=== PATIENT | female | born 1970 | race Two or more races ===

== ENCOUNTER 2025-01-06 00:48 | Emergency (ER) | payer BC ==
[~2025-01-06] VITALS: Ht 170.2 cm; Wt 99.9 kg
[~2025-01-06 00:48] MED LIST: IBUP-1456 PO
--- NOTE | 2025-01-06 01:37 | DVH ---
Procedure: XY KUB ABDOMEN SINGLE VIEW Exam Date: 01/06/2025 01:12 AM History: Constipation Comparison Study: None Technique: Single frontal view of the abdomen. Findings/ impression: Nonobstructive bowel-gas pattern. [id number] fecal retention in the colo n. No radiopaque foreign objects. No acute osseous abnormalities.
[2025-01-06] MEDS ORDERED: PHEN-839 OR (02:04)
[2025-01-06] MEDS ORDERED: DOCU-94 PO (02:04)
--- NOTE | 2025-01-06 02:06 | ED.PDOC ---
GI ASSESSMENT HPI Comments This patient is a pleasant but morbidly obese 54-year-old female who arrives to the ED today for evaluation of left foot upper quadrant abdominal pain for the past half day. Patient states she has a history of left upper quadrant abdominal pain has seen specialist before. Patient states that they have not found any definitive cause of her pain concerns. Patient denies any fever nausea or vomiting. Patient states some mild constipation. Vital signs were stable on arrival. Patient declined any narcotic pain medication while at the facility. Chief Complaint: Abdominal Pain Time Seen by MD: 00:55 Reviewed Notes: Nurses Notes Allergies: Coded Allergies: No Known Drug Allergy (Verified Allergy, Unknown, 12/01/22) Home Meds Active Scripts Ibuprofen (Ibuprofen) 800 Mg Tab, 1 TAB PO TID PRN, #30 TAB 0 Refills Prov:IMELDA AGUIRRE 02/09/22 Information Source: Patient Mode of Arrival: Ambulatory Timing: Hours Duration: Since onset Prehospital treatment: None Quality: Cramping Vomitus: None Severity: Moderate Recent: None Recent Hx of: Other (Patient has a history of left upper quadrant abdominal pain concerns.) Pain Location: LUQ Modifying Factors: Food Associated sign and symptoms: Abdominal Pain Past Medical History PAST MEDICAL HISTORY: Denies Past Medical History (Other): History of abdominal pain concerns Surgical History: Denies all surgeries SERVICE CLERK History: No Pertinent SERVICE CLERK History Family History Family History: Reviewed,noncontributory to illness, No family hx of Cancer, No family hx of DM, No family hx of Heart devante, No family hx of HTN, No family hx ofKidney devante, No family hx of Liver devante, No family hx of Lung devante, No family hx of Stroke Social History Smoker: Non-Smoker Alcohol: Denies ETOH Use Drugs: Denies Drug Use Lives In: Home Constitutional: denies: chills, diaphoresis, fatigue, fever, malaise, sweats, weakness, others EENTM: denies: blurred vision, double vision, ear bleeding, ear discharge, ear drainage, ear pain, ear ringing, eye pain, eye redness, hearing loss, mouth pain, mouth swelling, nasal discharge, nose bleeding, nose congestion, nose p ain, photophobia, tearing, throat pain, throat swelling, voice changes, others Respiratory: denies: cough, hemoptysis, orthopnea, SOB at rest, shortness of breath, SOB with excertion, stridor, wheezing, others Cardiovascular: denies: chest pain, dizzy spells, diaphoresis, Dyspnea on exertion, edema, irregular heart beat, left arm pain, lightheadedness, palpitations, PND, syncope, others Gastrointestinal: reports: abdominal pain; denies: abdomen distended, blood streaked bowels, constipated, diarrhea, dysphagia, difficulty swallowing, hematemesis, melena, nausea, poor appetite, poor fluid intake, rectal bleeding, rectal pain, vomiting, others Genitourinary: denies: abnormal vagina bleeding, burning, dyspareunia, dysuria, flank pain, frequency, hematuria, incontinence, pain, , vagina discharge, urgency, others Neurological: denies: dizziness, fainting, headache, left sided numbness, left sided weakness, numbness, paresthesia, pre-existing deficit, right sided numbness, right sided weakness, seizure, speech problems, tingling, tremors, weakness, others Musculoskeletal: denies: back pain, gout, joint pain, joint swelling, muscle pain, muscle stiffness, neck pain, others Integumetry: denies: bruises, change in color, change in hair/nails, dryness, laceration, lesions, lumps, rash, wounds, others Allergic/Immunocompromised: denies: Difficulty Healing, Frequent Infections, Hives, Itching, others Hematologic/Lymphatic: denies: anemia, blood clots, easy bleeding, easy bruising, swollen glands, others Endocrine: denies: excessive hunger, excessive sweating, excessive thirst, excessive urination, flushing, intolerance to cold, intolerance to heat, unexpl ained weight gain, unexplained weight loss, others Psychiatric: denies: anxiety, bipolar disorder, depression, hopeless, panic disorder, schizophrenia, sleepless, suicidal, others Physical Exam General Appearance: Mild Distress (Moderate distress due to left upper quadrant pain concerns.), Obese HEENT: Normal ENT Inspection, Pharynx Normal, TMs Normal Neck: Full Range of Motion, Non-Tender, Normal, Normal Inspection Respiratory: Chest Non-Tender, Lungs Clear, No Accessory Muscle Use, No Respiratory Distress, Normal Breath Sounds Cardiovascular: No Edema, No JVD, No Murmur, No Gallop, Normal Peripheral Pulses, Regular Rate/Rhythm Breast Exam: Deferred Gastrointestinal: Other (Diffuse left upper quadrant tenderness to palpation. No pulsatile masses. No signs of trauma.) Genitalia: Deferred Pelvic: Deferred Rectal: Deferred Extremities: No calf tenderness, Normal capillary refill, Normal inspection, Normal range of motion, Non-tender, No pedal edema Neurologic: Alert, fluid dynamicist II-XII nml as Tested, No Motor Deficits, Normal Affect, Normal Mood, No Sensory Deficits Cerebellar Function: Normal Reflexes: Normal Skin: Dry, Normal Color, Warm Lymphatic: No Adenopathy Was a procedure done? Was a procedure done?: No GI differential Dx Differential Diagnosis: Other (Chronic abdominal pain, constipation, UTI) X-Ray, Labs, Meds, VS Vital Signs Date Time Temp Pulse Resp B/P (MAP) Pulse Ox O2 Delivery O2 Flow Rate FiO2 01/06/25 01:05 98.1 74 16 119/70 (86) 97 98.1 X-Ray, Labs, Meds, VS Comment Urinalysis was pending at time of this note. KUB studies confirmed a moderate stool burden. Patient may be suffering from a constipation issue. Patient care will be transferred to Dr. Santana for review of urinalysis when returned. Once evaluated, he will respond accordingly. Time of 1ST Reevaluation: 02: Reevaluation 1ST: Improved Consultation: PCP, GI Patient Education/Counseling: Diagnosis, Treatment Family Education/Counseling: Diagnosis, Treatment Departure 1 Departure Time of Disposition: : Impression: Primary Impression: Chronic abdominal pain Additional Impression: Constipation Disposition: HOME / SELF CARE / HOMELESS Condition: Stable Additional Instructions: Advised patient utilize medication as needed for symptomatic relief in additionally, patient should continue follow up with primary care provider and GI for evaluation of chronic abdominal pain concerns. e-Prescriptions Docusate Sodium (Colace) 100 Mg Cap 1 CAP PO BIDP PRN, #20 CAP Prov: MELLY CALLE PAC 01/06/25 Belladonna Alkaloids-Phenobarb () Tab 1 TAB OR Q8HPRN PRN, #15 TAB Prov: MELLY CALLE PAC 01/06/25 Discharged With: Self Critical Care Note Critical Care Time?: No Stability Stability form required: No Heart Score Heart Score: Heart Score Response (Comments) Value History N/A 0 EKG N/A 0 Age N/A 0 Risk Factors N/A 0 Troponin N/A 0 Total 0 MELLY CALLE PAC January 06, 2025 02:06
[2025-01-06 02:15] VITALS: PULSE 63; RESP 18; O2SAT 98
[2025-01-06 02:18] LABS: Urine Bacteria FEW /hpf (None Seen); Urine Blood Negative /uL (Negative); Urine Clarity Clear (Clear); Urine Color Colorless (Yellow); Urine Protein, UAD Negative (Negative); Urine Specific Gravity 1.005 (1.001-1.035); Urine Squamous Epithelial Cell FEW /hpf (<5); Urine Urobilinogen Normal (Negative); Urine WBC 3 /HPF (0-5)
[2025-01-06] MEDS: DONNATAL 5ml ORAL Elix (BELLADONNA ALK-PHENOBARB) PO ONE (02:22)
[2025-01-06 04:23] VITALS: BP 121/61; PULSE 70; RESP 16; TEMP 98.2; O2SAT 98
[2025-01-06] MEDS ORDERED: CIPR-173 PO (12:56)
[2025-01-06] MEDS ORDERED: IBUP-1456 PO (12:56)
== END 2025-01-06 04:59 | disposition home or self-care (01) ==
LOC: ER 00:48
DX: K59.00 Constipation, unspecified (principal); G89.29 Other chronic pain; R10.12 Left upper quadrant pain; E66.01 Morbid (severe) obesity due to excess calories
CPT/HCPCS: 74018; 81001

== ENCOUNTER 2025-01-06 11:42 | Emergency (ER) | payer BC ==
[~2025-01-06] VITALS: Ht 170.2 cm; Wt 98.9 kg
[~2025-01-06 11:42] MED LIST changes: +DOCU-94 PO; +PHEN-839 OR
[2025-01-06 11:57] VITALS: BP 143/66; RESP 16; TEMP 98.8; O2SAT 95
--- NOTE | 2025-01-06 12:09 | ED.PDOC ---
General HPI Comments A 54 YEAR OLD FEMALE PRESENTS TO THE ED WITH COMPLAINT OF LEFT FLANK PAIN THAT RADIATES TO LUQ OF ABDOMEN. PATIENT STATES SHE HAS BEEN EXPERIENCING LEFT FLANK PAIN THAT RADIATES TO HER LEFT UPPER QUADRANT OF HER ABDOMEN FOR THE PAST 3 DAYS. PATIENT WAS HERE IN THIS ED FOR THE SAME COMPLAINT EARLIER TODAY WHERE A URINE TEST AND X RAY OF HER ABDOMEN WAS DONE WHICH REVEALED A MODERATE AMOUNT OF STOOL, BUT NO OTHER FINDINGS. PATIENT DENIES FEVER, CHILLS, SHORTNESS OF BREATH, CHEST PAIN, NAUSEA, VOMITING, HEADACHE, OR OTHER COMPLAINTS. NO OTHER SYMPTOMS OR MODIFYING FACTORS AT THIS TIME. PATIENT IS ALERT, ORIENTED X 4, AND HAS STEADY GAIT. Chief Complaint: Rib Pain Time Seen by MD: 11:45 Primary Care Provider: UNKNOWN Reviewed notes: Nurses Notes, Medications, Allergies Allergies: Coded Allergies: No Known Drug Allergy (Verified Allergy, Unknown, 12/01/22) Home Meds Active Scripts Ciprofloxacin Hcl (Cipro) 500 Mg Tab, 1 TAB PO BID, #14 TAB Prov:SHALONDA RIVAS 01/06/25 Ibuprofen (Ibuprofen) 800 Mg Tab, 1 TAB PO TID, #30 TAB Prov:SHALONDA RIVAS 01/06/25 Docusate Sodium (Colace) 100 Mg Cap, 1 CAP PO BIDP PRN, #20 CAP Prov:MELLY CALLE PAC 01/06/25 Belladonna Alkaloids-Phenobarb () Tab, 1 TAB OR Q8HPRN PRN, #15 TAB Prov:MELLY CALLE PAC 01/06/25 Ibuprofen (Ibuprofen) 800 Mg Tab, 1 TAB PO TID PRN, #30 TAB 0 Refills Prov:IMELDA AGUIRRE 02/09/22 Information Source: Patient Mode of Arrival: Ambulatory Severity: Moderate Inability to void: None Timing: Days Duration: Since onset, Days Prehospital treatment: None Onset: Spontaneous Symptoms: None History of: None Location: (L)Flank Modifying factors: None associated signs and symptoms: Flank Pain Past Medical History PAST MEDICAL HISTORY: Angina Surgical History: Denies all surgeries INSULATION CUPOLA OPERATOR History: No Pertinent INSULATION CUPOLA OPERATOR History Family History Family History: Reviewed,noncontributory to illness, No family hx of Cancer, No family hx of DM, No family hx of Heart devante, No family hx of HTN, No family hx ofKidney devante, No family hx of Liver devante, No family hx of Lung devante, No family hx of Stroke Social History Smoker: Non-Smoker Alcohol: Denies ETOH Use Drugs: Denies Drug Use Lives In: Home Constitutional: denies: chills, diaphoresis, fatigue, fever, malaise, sweats, weakness, others EENTM: denies: blurred vision, double vision, ear bleeding, ear discharge, ear drainage, ear pain, ear ringing, eye pain, eye redness, hearing loss, mouth pain, mouth swelling, nasal discharge, nose bleeding, nose congestion, nose pain, photophobia, tearing, throat pain, throat swelling, voice changes, others Respiratory: denies: cough, hemoptysis, orthopnea, SOB at rest, shortness of breath, SOB with excertion, stridor, wheezing, others Cardiovascular: denies: chest pain, dizzy spells, diaphoresis, Dyspnea on exertion, edema, irregular heart beat, left arm pain, lightheadedness, palpitations, PND, syncope, others Gastrointestinal: reports: abdominal pain; denies: abdomen distended, blood streaked bowels, constipated, diarrhea, dysphagia, difficulty swallowing, hematemesis, melena, nausea, poor appetite, poor fluid intake, rectal bleeding, rectal pain, vomiting, others Genitourinary: reports: flank pain; denies: abnormal vagina bleeding, burning, dyspareunia, dysuria, frequency, hematuria, incontinence, pain, , vagina discharge, urgency, others Neurological: denies: dizziness, fainting, headache, left sided numbness, left sided weakness, numbness, paresthesia, pre-existing deficit, right sided numbness, right sided weakness, seizure, speech problems, tingling, tremors, weakness, others Musculoskeletal: denies: back pain, gout, joint pain, joint swelling, muscle pain, muscle stiffness, neck pain, others Integumetry: denies: bruises, change in color, change in hair/nails, dryness, laceration, lesions, lumps, rash, wounds, others Allergic/Immunocompromised: denies: Difficulty Healing, Frequent Infections, Hives, Itching, others Hematologic/Lymphatic: denies: anemia, blood clots, easy bleeding, easy bruising, swollen glands, others Endocrine: denies: excessive hunger, excessive sweating, excessive thirst, excessive urination, flushing, intolerance to cold, intolerance to heat, unexpla ined weight gain, unexplained weight loss, others Psychiatric: denies: anxiety, bipolar disorder, depression, hopeless, panic disorder, schizophrenia, sleepless, suicidal, others All Other Systems: Reviewed and Negative Physical Exam General Appearance: No Apparent Distress, Normal HEENT: Normal ENT Inspection, PERRL/EOMI, Pharynx Normal, TMs Normal Neck: Full Range of Motion, Non-Tender, Normal, Normal Inspection Respiratory: Chest Non-Tender, Lungs Clear, No Accessory Muscle Use, No Respir atory Distress, Normal Breath Sounds Cardiovascular: No Edema, No JVD, No Murmur, No Gallop, Normal Peripheral Pulses, Regular Rate/Rhythm Breast Exam: Deferred Gastrointestinal: LUQ, No Organomegaly, No Pulsatile Mass, Normal Bowel Sounds, Soft, Tenderness (LEFT FLAN TO LEFT UPPER ABD, NO GUARDING AND REBOUND TENDER NESS, NO CVA TENDERNESS. ) Genitalia: Deferred Pelvic: Deferred Rectal: Deferred Extremities: No calf tenderness, Normal capillary refill, Normal inspection, Normal range of motion, Non-tender, No pedal edema Musculoskeletal : Apperance: Normal Neurologic: Alert, internal combustion engineer II-XII nml as Tested, No Motor Deficits, Normal Affect, Normal Mood, No Sensory Deficits Cerebellar Function: Normal Reflexes: Normal Skin: Dry, Normal Color, Warm Peripheral Pulses: 2+ carotid (R), 2+ carotid (L) Lymphatic: No Adenopathy Was a procedure done? Was a procedure done?: No EKG EKG : Pulse Rate (adult): 64 [place]: Normal Cardiac Rhythm: NSR Block: None Hypertrophy: None ST: Normal Differential Diagnosis Kidney stone (Female): Musculoskeletal pain, Pyelonephritis, Renal failure, Strain, Urolithiasis Kidney stone (Male): N/A Penile/Scrotal: N/A Urinary Problem (Male): N/A Urinary Problem (Female): N/A X-Ray, Labs, Meds, VS Vital Signs Date Time Temp Pulse Resp B/P (MAP) Pulse Ox O2 Delivery O2 Flow Rate FiO2 01/06/25 12:21 64 01/06/25 12:19 64 01/06/25 11:57 98.8 79 16 143/66 (91) 95 98.8 01/06/25 11:57 79 16 95 Room Air 01/06/25 11:53 98.8 79 16 143/66 (91) 95 98.8 Lab Test 01/06/25 12:07 01/06/25 01:10 Range/Units White Blood Count 8.6 4.4-10.8 10^3/uL Red Blood Count 4.78 4.0-5.20 10^6/uL Hemoglobin 14.6 12.2-16.2 g/dL Hematocrit 42.9 36.0-46.0 % Mean Corpuscular Volume 89.7 80.0-100.0 fL Mean Corpuscular Hemoglobin 30.5 28.0-32.0 pg Mean Corpuscular Hemoglobin Concent 34.0 32.0-36.0 g/dL Red Cell Distribution Width 13.9 11.8-14.3 % Platelet Count 317 140-450 10^3/uL Mean Platelet Volume 7.3 6.9-10.8 fL Neutrophils (%) (Auto) 70.6 37.0-80.0 % Lymphocytes (%) (Auto) 19.6 10.0-50.0 % Monocytes (%) (Auto) 8.6 0.0-12.0 % Eosinophils (%) (Auto) 0.7 0.0-7.0 % Basophils (%) (Auto) 0.5 0.0-2.0 % Neutrophils # (Auto) 6.1 1.6-8.6 10 ^3/uL Lymphocytes # (Auto) 1.7 0.4-5.4 10 ^3/uL Monocytes # (Auto) 0.7 0-1.3 10 ^3/uL Eosinophils # (Auto) 0.1 0-0.8 10 ^3/uL Basophils # (Auto) 0 0-0.2 10 ^3/uL Nucleated Red Blood Cells 0.0 % Sodium Level 141 136-145 mmol/L Potassium Level 3.8 3.5-5.1 mmol/L Chloride Level 105 98-107 mmol/L Carbon Dioxide Level 24 20-31 mmol/L Anion Gap 12 5-15 Blood Urea Nitrogen 11 9-23 mg/dL Creatinine 0.72 0.550-1.02 mg/dL Glomerular Filtration Rate Calc 100 >90 mL/min BUN/Creatinine Ratio 15.3 10.0-20.0 Serum Glucose 119 H 74-106 mg/dL Calcium Level 9.4 8.7-10.4 mg/dL Total Bilirubin 0.6 0.2-1.0 mg/dL Aspartate Amino Transferase (AST) 17 13-40 U/L Alanine Aminotransferase (ALT) 28 7-40 U/L Alkaline Phosphatase 96 46-116 U/L Troponin I High Sensitivity < 3 L </=34 ng/L Total Protein 7.5 5.7-8.2 g/dL Albumin 4.7 3.2-4.8 g/dL Lipase 39 12-53 U/L Urine Color Light-yellow Yellow Urine Clarity Clear Clear Urine pH 6.0 5.0-9.0 Urine Specific [place] 1.005 1.001-1.035 Urine Protein Negative Negative Urine Ketones Negative Negative Urine Blood Negative Negative /uL Urine Nitrite Negative Negative Urine Bilirubin Negative Negative Urine Urobilinogen Normal Negative mg/dL Urine Leukocyte Esterase Negative Negative /uL Urine RBC 1 0 - 4 /hpf Urine Microscopic WBC 3 0-5 /HPF Urine Squamous Epithelial Cells Few <5 /hpf Urine Bacteria Few H None Seen /hpf Urine Glucose Normal Normal mg/dL Current Medications Medications (Trade) Dose Ordered Sig/Jose Route Start Time Stop Time Status Last Admin Ketorolac Tromethamine (Toradol Injection) 60 mg ONCE ONCE IM 01/06/25 13:00 01/06/25 13:01 DC 01/06/25 12:58 X-Ray, Labs, Meds, VS Comment EXTERNAL MEDICAL RECORDS REVIEWED: [NONE] INDEPENDENT HISTORIANS: [NONE] SOCIAL DETERMINANTS OF HEALTH: [NONE] LABS ORDERED: CBC, CMP, TROPONIN, UA REVIEWED AND INTERPRETED RESULTS: NORMAL IMAGING ORDERED: CT ABD/PEL TREATMENTS ORDERED: TORADOL 60 MG IM PROCEDURES PERFORMED: NONE CRITICAL CARE TIME: NONE I HAVE DISCUSSED THE PATIENT WITH THE ATTENDING PHYSICIAN DR. ESCOBEDO AND HE AGREES WITH THE PATIENT'S PLAN OF CARE AND DISPOSITION. PATIENT WAS OFFERED ADMISSION FOR FURTHER TREATMENT, BUT THE PATIENT DECLINED AT THIS TIME AND STATED THAT SHE WOULD PREFER OUTPATIENT TREATMENT INSTEAD. BASED ON HISTORY OF PRESENT ILLNESS, AND PHYSICAL EXAM, PATIENT WILL BE DISCHARGED HOME. DISCUSSED PLAN FOR DISCHARGE HOME WITH RX [CIPRO 500MG AND IBUPROFEN 800 MG]. MEDICATION WARNINGS GIVEN. SHARED DECISION MAKING: PATIENT INSTRUCTED TO FOLLOW UP WITH PRIMARY CARE PROVIDER IN 1-2 DAYS FOR RE-EVALUATION OF SYMPTOMS. PATIENT VERBALIZES UNDERSTANDING TO RETURN TO ED FOR NEW OR WORSENING SYMPTOMS OR IF FOLLOW UP WITH PCP CANNOT BE OBTAINED. PATIENT FEELS COMFORTABLE GOING HOME AT THIS TIME. ALL QUESTIONS ADDRESSED AT TIME OF DISCHARGE. Images Reviewed?: Images reviewed and evaluated by me Time of 1ST Reevaluation: 13:20 Reevaluation 1ST: Improved Patient Education/Counseling: Diagnosis, Treatment, Need For Follow Up Family Education/Counseling: Diagnosis, Treatment, Need For Follow Up Medical Screening: No EMC Exist At This Time Departure 1 Departure Time of Disposition: 13:20 Impression: Primary Impression: Acute left flank pain Additional Impression: Colitis Disposition: 01 HOME / SELF CARE / HOMELESS Condition: Stable Additional Instructions: FOLLOW-UP WITH PCP IN 1 TO 2 DAYS. TAKE MEDICATIONS PRESCRIBED. RETURN TO ED FOR ANY NEW OR WORSENING SYMPTOMS. e-Prescriptions Ciprofloxacin Hcl (Cipro) 500 Mg Tab 1 TAB PO BID, #14 TAB Prov: SHALONDA RIVAS 01/06/25 Ibuprofen (Ibuprofen) 800 Mg Tab 1 TAB PO TID, #30 TAB Prov: SHALONDA RIVAS 01/06/25 Discharged With: Self Critical Care Note Critical Care Time?: No Stability Stability form required: No I personally scribed for SHALONDA RIVAS ([email or web address]) on 01/06/25 at 12:09. Electronically submitted by Juan Mckeon ([employer]). I personally scribed for SHALONDA RIVAS ([email or web address]) on 01/06/25 at 12:21. Electronically submitted by Juan Mckeon ([employer]). I personally scribed for SHALONDA RIVAS ([email or web address]) on 01/06/25 at 12:53. Electronically submitted by Juan Mckeon ([email or web address]). SHALONDA RIVAS January 06, 2025 12:09
[2025-01-06 12:10] LABS: Urine Bacteria FEW /hpf (None Seen); Urine Blood Negative /uL (Negative); Urine Clarity Clear (Clear); Urine Color Light-Yellow (Yellow); Urine Protein, UAD Negative (Negative); Urine Specific Gravity 1.005 (1.001-1.035); Urine Squamous Epithelial Cell FEW /hpf (<5); Urine Urobilinogen Normal (Negative); Urine WBC 3 /HPF (0-5)
[2025-01-06 12:18] LABS: Basophils # (auto) 0 10 ^3/uL (0-0.2); Basophils % (auto) 0.5 % (0.0-2.0); Eosinophils # (auto) 0.1 10 ^3/uL (0-0.8); Eosinophils % (auto) 0.7 % (0.0-7.0); Hematocrit 42.9 % (36.0-46.0); Hemoglobin 14.6 g/dL (12.2-16.2); Lymphocytes # (auto) 1.7 10 ^3/uL (0.4-5.4); Lymphocytes % (auto) 19.6 % (10.0-50.0); Mean Corpuscular Hemoglobin 30.5 pg (28.0-32.0); Mean Corpuscular Volume 89.7 fL (80.0-100.0); Monocytes # (auto) 0.7 10 ^3/uL (0-1.3); Monocytes % (auto) 8.6 % (0.0-12.0); Neutrophils # (auto) 6.1 10 ^3/uL (1.6-8.6); Neutrophils % (auto) 70.6 % (37.0-80.0); Platelet Count (auto) 317 10^3/uL (140-450); Red Blood Cells 4.78 10^6/uL (4.0-5.20); Red Cell Distribution Width 13.9 % (11.8-14.3); White Blood Cell 8.6 10^3/uL (4.4-10.8)
[2025-01-06 12:21] VITALS: PULSE 64
[2025-01-06 12:34] LABS: Alanine Aminotransferase 28 U/L (7-40); Albumin 4.7 g/dL (3.2-4.8); Alkaline Phosphatase 96 U/L (46-116); Anion Gap 12 (5-15); Aspartate Aminotransferase 17 U/L (13-40); BUN/Creatinine Ratio 15.3 (10.0-20.0); Blood Urea Nitrogen 11 mg/dL (9-23); Calcium 9.4 mg/dL (8.7-10.4); Carbon Dioxide 24 mmol/L (20-31); Chloride 105 mmol/L (98-107); Lipase 39 U/L (12-53); Potassium 3.8 mmol/L (3.5-5.1); Sodium 141 mmol/L (136-145); Total Protein 7.5 g/dL (5.7-8.2)
[2025-01-06 12:35] LABS: Bilirubin, Total 0.6 mg/dL (0.2-1.0)
[2025-01-06 12:39] LABS: Glucose 119 mg/dL (74-106)
--- NOTE | 2025-01-06 12:40 | DVH ---
Exam: CT CT AB PEL WO CON-NO ORAL OR IV History: LEFT FLANK PAIN Comparison Study: None Technique: Multidetector spiral CT of the abdomen was performed from lung bases to pubic symphysis. Imaging was performed without IV contrast. Axial, coronal and sagittal multiplanar reformats were ob tained from the axial data set by the technologist. Radiation Dose : 1. Abdomen/Pelvis: CTDIvol 25.24 mGy, DLP 1363.13 mGy*cm. Findings: Evaluation of solid organs is limited due to lack of intravenous contrast use. Lung Bases: No acute or significant lung base finding. Normal heart size. No pleural or pericardial effusion. Liver: The liver is normal in size. No focal lesions. Gallbladder and Biliary Tree: Unremarkable Spleen: Unremarkable Pancreas: The pancreas is grossly normal in appearance. Adrenal Glands: Unremarkable Kidneys: Kidneys are grossly normal without calculi or hydronephrosis. Bladder: Grossly unremarkable for degree of distention. Bowel: The stomach is grossly normal in appearance. Concentric wall thickening of the distal colon ma y reflect underdistention versus mild colitis. The appendix is not visualized; however, no secondary findings of acute appendicitis identified. Ascites: Absent Lymphadenopathy: No mesenteric, retroperitoneal or periportal lymphadenopathy. Abdominal Wall and Mesentery: Unremarkable. Vasculature: The visualized abdominal aorta is normal in size and caliber. Evaluation of abdominal a nd pelvic vessels is limited due to lack of intravenous contrast. Pelvic Organs: Unremarkable Musculoskeletal: No aggressive focal bony lesions, acute fractures or dislocation. IMPRESSION: 1. Concentric wall thickening of the distal colon may reflect underdistention versus mild colitis. Radiation optimization: All CT scans at this facility use at least one of these dose optimization rani hniques: automated exposure control mA and/or kV adjustment per patient size (includes targeted exam s where dose is matched to clinical indication) or iterative reconstruction.
[2025-01-06] MEDS ORDERED: CIPR-173 PO (12:56)
[2025-01-06] MEDS ORDERED: IBUP-1456 PO (12:56)
[2025-01-06] MEDS: KETOROLAC TROMETH 60MG/2ML VIAL IM ONE (12:58)
--- NOTE | 2025-01-08 12:53 | ECG ---
[facility] Test Date: 2025-01-06 Test Time: 12:19:22 Pat Name: DELROY MARTINO Department: ER Room: Gender: F [employer]inder Gear: NATE : 1970 Requested By: SHALONDA RIVAS Order Number: [id number] Reading MD: Measurements Intervals [place] Rate: 64 P: 31 NV: 130 QRS: 53 QRSD: 101 T: 38 QT: 375 QTc: 387 Interpretive Statements Sinus rhythm Low voltage, precordial leads Baseline wander in lead(s) I,II,aVR Please click the below link to view image of tracing.
== END 2025-01-06 13:13 | disposition home or self-care (01) ==
LOC: ER 11:42
DX: K52.9 Noninfective gastroenteritis and colitis, unspecified (principal); Z79.1 Long term (current) use of non-steroidal anti-inflammatories (NSAID)
CPT/HCPCS: 36415; 74176; 80053; 81001; 83690; 84484; 85025; 93005; 96372; 99285; J1885

== ENCOUNTER 2025-01-11 16:09 | Inpatient (IN) | payer BC ==
[~2025-01-11] VITALS: Ht 177.8 cm; Wt 102.0 kg
[~2025-01-11 16:09] MED LIST changes: +CIPR-173 PO
--- NOTE | 2025-01-11 16:37 | ED.PDOC ---
History of Present Illness HPI Comments 54-year-old female with PMHx Angina, COPD presents with a chief complaint of abdominal pain and nausea. Patient states that her pain is localized to her LLQ, nonradiating, describes as sharp, and rates her pain a 8/10. Patient is reporting LLQ tenderness. Patient also mentions that she has been having freque nt bowel movements and that her stool has been loose. Time Seen by MD: 16:22 Primary Care Provider: UNKNOWN Reviewed Notes: Medications, Allergies Allergies: Coded Allergies: No Known Drug Allergy (Verified Allergy, Unknown, 12/01/22) Home Meds Active Scripts Ciprofloxacin Hcl (Cipro) 500 Mg Tab, 1 TAB PO BID, #14 TAB Prov:SHALONDA RIVAS 01/06/25 Ibuprofen (Ibuprofen) 800 Mg Tab, 1 TAB PO TID, #30 TAB Prov:SHALONDA RIVAS 01/06/25 Docusate Sodium (Colace) 100 Mg Cap, 1 CAP PO BIDP PRN, #20 CAP Prov:MELLY CALLE PAC 01/06/25 Belladonna Alkaloids-Phenobarb () Tab, 1 TAB OR Q8HPRN PRN, #15 TAB Prov:MELLY CALLE PAC 01/06/25 Ibuprofen (Ibuprofen) 800 Mg Tab, 1 TAB PO TID PRN, #30 TAB 0 Refills Prov:IMELDA AGUIRRE 02/09/22 Information Source: Patient Mode of Arrival: Ambulatory Severity: Moderate Timing: Days Duration: Since onset Prehospital treatment: None Past Medical History PAST MEDICAL HISTORY: Angina, COPD Surgical History: Denies all surgeries [employer] MECH[employer]IC History: No Pertinent [employer]OM[employer]BILE [employer]ATOR MECH[employer]IC History Family History Family History: Reviewed,noncontributory to illness, No family hx of Cancer, No family hx of DM, No family hx of Heart devante, No family hx of HTN, No family hx ofKidney devante, No family hx of Liver devante, No family hx of Lung devante, No family hx of Stroke Social History Smoker: Non-Smoker Alcohol: Denies ETOH Use Drugs: Denies Drug Use Lives In: Home Constitutional: denies: chills, diaphoresis, fatigue, fever, malaise, sweats, weakness, others EENTM: denies: blurred vision, double vision, ear bleeding, ear discharge, ear drainage, ear pain, ear ringing, eye pain, eye redness, hearing loss, mouth pain, mouth swelling, nasal discharge, nose bleeding, nose congestion, nose pain, photophobia, tearing, throat pain, throat swelling, voice changes, others Respiratory: denies: cough, hemoptysis, orthopnea, SOB at rest, shortness of breath, SOB with excertion, stridor, wheezing, others Cardiovascular: denies: chest pain, dizzy spells, diaphoresis, Dyspnea on exertion, edema, irregular heart beat, left arm pain, lightheadedness, palpitations, PND, syncope, others Gastrointestinal: reports: abdominal pain, nausea; denies: abdomen distended, blood streaked bowels, constipated, diarrhea, dysphagia, difficulty swallowing, hematemesis, melena, poor appetite, poor fluid intake, rectal bleeding, rectal pain, vomiting, others Genitourinary: denies: abnormal vagina bleeding, burning, dyspareunia, dysuria, flank pain, frequency, hematuria, incontinence, pain, , vagina discharge, urgency, others Neurological: denies: dizziness, fainting, headache, left sided numbness, left sided weakness, numbness, paresthesia, pre-existing deficit, right sided numbness, right sided weakness, seizure, speech problems, tingling, tremors, weakness, others Musculoskeletal: denies: back pain, gout, joint pain, joint swelling, muscle pain, muscle stiffness, neck pain, others Integumetry: denies: bruises, change in color, change in hair/nails, dryness, laceration, lesions, lumps, rash, wounds, others Allergic/Immunocompromised: denies: Difficulty Healing, Frequent Infections, Hives, Itching, others Hematologic/Lymphatic: denies: anemia, blood clots, easy bleeding, easy bruising, swollen glands, others Endocrine: denies: excessive hunger, excessive sweating, excessive thirst, excessive urination, flushing, intolerance to cold, intolerance to heat, unexplained weight gain, unexplained weight loss, others Psychiatric: denies: anxiety, bipolar disorder, depression, hopeless, panic disorder, schizophrenia, sleepless, suicidal, others All Other Systems: Reviewed and Negative Physical Exam General Appearance: No Apparent Distress, Normal HEENT: Normal ENT Inspection, Pharynx Normal, TMs Normal Neck: Full Range of Motion, Non-Tender, Normal, Normal Inspection Respiratory: Chest Non-Tender, Lungs Clear, No Accessory Muscle Use, No Resp iratory Distress, Normal Breath Sounds Cardiovascular: No Edema, No JVD, No Murmur, No Gallop, Normal Peripheral Pulses, Regular Rate/Rhythm Breast Exam: Deferred Gastrointestinal: No Organomegaly, Non Tender, No Pulsatile Mass, Normal Bowel Sounds, Soft Genitalia: Deferred Pelvic: Deferred Rectal: Deferred Extremities: No calf tenderness, Normal capillary refill, Normal inspection, Normal range of motion, Non-tender, No pedal edema Musculoskeletal : Apperance: Normal 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 Was a procedure done?: No Time of 1ST Reevaluation: 16:52 Reevaluation 1ST: Unchanged Patient Education/Counseling: Diagnosis, Treatment, Prognosis Critical Care Note Critical Care Time?: No Stability Stability form required: No Heart Score Heart Score: Heart Score Response (Comments) Value History N/A 0 EKG N/A 0 Age N/A 0 Risk Factors N/A 0 Troponin N/A 0 Total 0 I personally scribed for HERBER KRUSE MD ([email or web address]) on 01/11/25 at 16:37. Electronically submitted by Lobo Burris ([email or web address]). HERBER KRUSE MD January 11, 2025 16:37
[2025-01-11] MEDS: ONDANSETRON HCL 4 MG/2 ML VIAL IV ONE (17:12)
[2025-01-11] MEDS: MORPHINE SULFATE 4 MG/ML SYR/VIAL IV ONE (17:12)
[2025-01-11] MEDS: SODIUM CHLORIDE 0.9% 1,000 ML IV ONE (17:12)
[2025-01-11 17:14] LABS: Basophils # (auto) 0 10 ^3/uL (0-0.2); Basophils % (auto) 0.2 % (0.0-2.0); Eosinophils # (auto) 0.2 10 ^3/uL (0-0.8); Eosinophils % (auto) 2.4 % (0.0-7.0); Hematocrit 42.5 % (36.0-46.0); Hemoglobin 14.3 g/dL (12.2-16.2); Lymphocytes # (auto) 1.9 10 ^3/uL (0.4-5.4); Lymphocytes % (auto) 24.9 % (10.0-50.0); Mean Corpuscular Hemoglobin 30.3 pg (28.0-32.0); Mean Corpuscular Hgb Conc. 33.6 g/dL (32.0-36.0); Mean Corpuscular Volume 90.2 fL (80.0-100.0); Monocytes # (auto) 0.6 10 ^3/uL (0-1.3); Monocytes % (auto) 8.2 % (0.0-12.0); Neutrophils % (auto) 64.3 % (37.0-80.0); Nucleated Red Blood Cells % 0.1 %; Platelet Count (auto) 312 10^3/uL (140-450); Red Blood Cells 4.72 10^6/uL (4.0-5.20); White Blood Cell 7.7 10^3/uL (4.4-10.8)
[2025-01-11 17:22] VITALS: PULSE 60; RESP 14; O2SAT 94
[2025-01-11 17:27] LABS: Alanine Aminotransferase 27 U/L (7-40); Albumin 4.7 g/dL (3.2-4.8); Alkaline Phosphatase 100 U/L (46-116); Anion Gap 11 (5-15); Aspartate Aminotransferase 23 U/L (13-40); BUN/Creatinine Ratio 14.9 (10.0-20.0); Blood Urea Nitrogen 17 mg/dL (9-23); Calcium 10.2 mg/dL (8.7-10.4); Carbon Dioxide 25 mmol/L (20-31); Chloride 104 mmol/L (98-107); Glucose 99 mg/dL (74-106); Potassium 3.8 mmol/L (3.5-5.1); Sodium 140 mmol/L (136-145); Total Protein 7.5 g/dL (5.7-8.2)
[2025-01-11 17:28] LABS: Bilirubin, Total 0.3 mg/dL (0.2-1.0)
[2025-01-11 18:15] LABS: Urine Bacteria FEW /hpf (None Seen); Urine Blood Negative /uL (Negative); Urine Clarity Clear (Clear); Urine Color Colorless (Yellow); Urine Protein, UAD Negative (Negative); Urine Specific Gravity 1.004 (1.001-1.035); Urine Squamous Epithelial Cell FEW /hpf (<5); Urine Urobilinogen Normal (Negative); Urine WBC 1 /HPF (0-5); Urine pH 5.5 (5.0-9.0)
[2025-01-11] MEDS: IOHEXOL 300 MG/ML 100ML BOTTLE IJ ONE (18:33)
[2025-01-11 19:20] VITALS: PULSE 65; RESP 10; O2SAT 94
--- NOTE | 2025-01-11 19:50 | DVH ---
EXAM: CT CT AB PEL WITH IV CON ONLY HISTORY: worsening abdominal pain TECHNIQUE: Volumetric multidetector CT images of the abdomen and pelvis were obtained after the admin istration of intravenous contrast. All CT scans at this facility use dose modulation, iterative recon struction, and/or weight based dosing when appropriate to reduce radiation dose to as low as reasonab ly achievable. COMPARISON: None FINDINGS: [LOWER CHEST]: The partially visualized lung bases are clear without a pleural effusion. [LIVER]: Benign-appearing fluid attenuating lesion in the left hepatic lobe. No further specific imag ing follow-up required, presuming no known or unknown increased risk of cancer above societal norms. [GALLBLADDER AND BILIARY TREE]: No cholelithiasis. [SPLEEN]: Unremarkable. [PANCREAS]: Unremarkable. [ADRENAL GLANDS]: Unremarkable [KIDNEYS]: No hydronephrosis. No nephroureterolithiasis. [BLADDER]: Unremarkable for the degree distention. [REPRODUCTIVE ORGANS]: Unremarkable. [BOWEL/MESENTERY]: Stomach is normal. No CT evidence of bowel obstruction. [ASCITES]: Absent [LYMPHADENOPATHY]: No pathologically enlarged lymph nodes by CT size criteria [VASCULATURE]: No aneurysmal dilatation. [ABDOMINAL WALL]: Unremarkable. [MUSCULOSKELETAL]: No acute fracture or aggressive focal osseous lesion. IMPRESSION: 1. No CT evidence of an acute abdominal/pelvic process.
[2025-01-11] MEDS: SOD CHL 0.45% 1,000 ML IV SCH (21:30)
[2025-01-11] MEDS ORDERED: DOCUSATE SOD 100 MG CAP PO PRN (21:30)
[2025-01-11] MEDS ORDERED: HYDROcodone-ACET 5/325MG TAB PO PRN (21:30)
[2025-01-11] MEDS ORDERED: MORPHINE SULFATE INJ 2 MG/ml SYRG IV PRN ×2 (21:30→23:00)
--- NOTE | 2025-01-11 22:50 | DVHHP2 ---
History of Present Illness Reason for Visit: Acute abdominal pain History of Present Illness The patient is a 54-year-old female with past medical history of angina and COPD who presented to [facility] ED with complaint of acute abdominal pain. Patient reports symptoms progressively get worse with localized left lower quadrant abdominal pain, nonradiating, describes as sharp, rating 8/10 numeric scale, associated nausea, getting worse that prompted this visit. Patient was seen and evaluated in the ED, laboratory data shows WBC 7.7, platelets 312, sodium 140, potassium 3.8, BUN 17, creatinine 1.14, glucose 99, blood pressure 122/35, heart rate 65, temperature 98.0 F, O2 saturation 94% on room air. Abdomen/pelvis CT showed no evidence of acute abdominal/pelvic process. On my assessment, patient denies chest pain, no headache, no dizziness, no shortness of breath, no pain or nausea at this moment, no vomiting, no fever, no chills. Patient was admitted for further evaluation and medical management. Past Medical History Angina, COPD Past Surgical History Colonoscopy, endoscopy Family History Reviewed, noncontributory to the management of this case. Past Social History The patient lives at home, denies smoking, alcohol or illicit drugs abuse. Review of Systems Constitutional: No: Fever, Chills, Sweats, Weakness, Malaise, Other Eyes: No: Pain, Vision change, Conjunctivae inflammation, Eyelid inflammation, Other, Redness ENT: No: Ear pain, Ear discharge, Nose pain, Nose discharge, Nose congestion, Mouth pain, Mouth swelling, Throat pain, Throat swelling, Other Respiratory: No: Cough, Dry, Shortness of breath, SOB with excertion, Wheezing, Hemoptysis, Pleuritic Pain, Sputum, Wheezing, Other Cardiovascular: No: Chest Pain, Palpitations, Orthopnea, Paroxysmal Noc. Dyspnea, Edema, Lt Headedness, Other Gastrointestinal: Nausea, Abdominal Pain; No: Vomiting, Diarrhea, Constipation, Melena, Hematochezia, Other Genitourinary: No Dysuria, No Frequency, No Incontinence, No Hematuria, No Retention, No Other Musculoskeletal: No: other, neck pain, shoulder pain, arm pain, back pain, hand pain, leg pain, foot pain Skin: No: Rash, Lesions, Jaundice, Bruising, Other Neurological: No: Weakness, Numbness, Incoordination, Change in speech, Confusion, Seizures, Other Allergies: Coded Allergies: No Known Drug Allergy (Verified Allergy, Unknown, 12/01/22) Medications Current Medications Medications Dose Ordered Sig/Jose Route Start Time Stop Time Status Last Admin Dose Admin Sodium Chloride 1,000 ml @ 75 mls/hr [id number] IV 01/11/25 21:30 Acetaminophen/ Hydrocodone Bitart 1 tab Q4HP PRN PO 01/11/25 21:30 Ondansetron HCl 4 mg Q4HP PRN IV 01/11/25 21:30 Docusate Sodium 100 mg BIDPRN PRN PO 01/11/25 21:30 Acetaminophen 650 mg Q6HP PRN PO 01/11/25 21:30 Morphine Sulfate 2 mg Q4HPRN PRN IV 01/11/25 21:30 Exam Vital Signs Vital Signs Date Time Temp Pulse Resp B/P (MAP) Pulse Ox O2 Delivery O2 Flow Rate FiO2 01/11/25 19:20 65 10 94 Room Air* 0 21 01/11/25 19:20 98.0 122/35 (64) 98.0 General Appearance: Alert, Oriented X3, Cooperative, No acute distress HEENT: Atraumatic, PERRLA, EOMI, Mucous membr. moist/pink Respiratory: Clear to auscultation, Normal air movement Cardiovascular: Regular rate, Normal S1, Normal S2, No murmurs Abdominal: Normal bowel sounds, Soft, No hepatospenomegaly, No masses, Other (R eports tenderness) Extremities: No clubbing, No cyanosis, No edema, Normal pulses, No tenderness/swelling Skin: No rashes, No breakdown, No significant lesion Neuro: Normal gait, Normal speech, Strength at 5/5 X4 ext, Normal tone, Sensation intact, Cranial nerves 3-12 NL, Reflexes 2+ Psych/Mental Status: Mental status NL, Mood NL Labs/Xrays Labs Test 01/11/25 17:17 01/11/25 16:53 Range/Units Urine Color Colorless Yellow Urine Clarity Clear Clear Urine pH 5.5 5.0-9.0 Urine Specific [place] 1.004 1.001-1.035 Urine Protein Negative Negative Urine Ketones Negative Negative Urine Blood Negative Negative /uL Urine Nitrite Negative Negative Urine Bilirubin Negative Negative Urine Urobilinogen Normal Negative mg/dL Urine Leukocyte Esterase Negative Negative /uL Urine RBC 1 0 - 4 /hpf Urine Microscopic WBC 1 0-5 /HPF Urine Squamous Epithelial Cells Few <5 /hpf Urine Bacteria Few H None Seen /hpf Urine Glucose Normal Normal mg/dL White Blood Count 7.7 4.4-10.8 10^3/uL Red Blood Count 4.72 4.0-5.20 10^6/uL Hemoglobin 14.3 12.2-16.2 g/dL Hematocrit 42.5 36.0-46.0 % Mean Corpuscular Volume 90.2 80.0-100.0 fL Mean Corpuscular Hemoglobin 30.3 28.0-32.0 pg Mean Corpuscular Hemoglobin Concent 33.6 32.0-36.0 g/dL Red Cell Distribution Width 14.0 11.8-14.3 % Platelet Count 312 140-450 10^3/uL Mean Platelet Volume 7.4 6.9-10.8 fL Neutrophils (%) (Auto) 64.3 37.0-80.0 % Lymphocytes (%) (Auto) 24.9 10.0-50.0 % Monocytes (%) (Auto) 8.2 0.0-12.0 % Eosinophils (%) (Auto) 2.4 0.0-7.0 % Basophils (%) (Auto) 0.2 0.0-2.0 % Neutrophils # (Auto) 5.0 1.6-8.6 10 ^3/uL Lymphocytes # (Auto) 1.9 0.4-5.4 10 ^3/uL Monocytes # (Auto) 0.6 0-1.3 10 ^3/uL Eosinophils # (Auto) 0.2 0-0.8 10 ^3/uL Basophils # (Auto) 0 0-0.2 10 ^3/uL Nucleated Red Blood Cells 0.1 % Sodium Level 140 136-145 mmol/L Potassium Level 3.8 3.5-5.1 mmol/L Chloride Level 104 98-107 mmol/L Carbon Dioxide Level 25 20-31 mmol/L Anion Gap 11 5-15 Blood Urea Nitrogen 17 9-23 mg/dL Creatinine 1.14 #H 0.550-1.02 mg/dL Glomerular Filtration Rate Calc 58 >90 mL/min BUN/Creatinine Ratio 14.9 10.0-20.0 Serum Glucose 99 74-106 mg/dL Lactic Acid Level 0.6 0.4-2.0 mmol/L Calcium Level 10.2 8.7-10.4 mg/dL Total Bilirubin 0.3 0.2-1.0 mg/dL Aspartate Amino Transferase (AST) 23 13-40 U/L Alanine Aminotransferase (ALT) 27 7-40 U/L Alkaline Phosphatase 100 46-116 U/L Total Protein 7.5 5.7-8.2 g/dL Albumin 4.7 3.2-4.8 g/dL PATIENT: DELROY MARTINO ACCT: [id number] UNIT: [id number] : 1970 LOC: ER ROOM / BED: / AGE / SEX: 54 / F ADM STATUS: REG ER SERVICE [id number] ORDERING PHYSICIAN: HERBER KRUSE MD PROCEDURE(s): ABPLIV - CT AB PEL WITH IV CON ONLY REASON: worsening abdominal pain ORDER NUMBER(s): [id number], ACCESSION NUMBER(s): [id number] EXAM: CT CT AB PEL WITH IV CON ONLY HISTORY: worsening abdominal pain TECHNIQUE: Volumetric multidetector CT images of the abdomen and pelvis were obtained after the administration of intravenous contrast. All CT scans at this facility use dose modulation, iterative reconstruction, and/or weight based dosing when appropriate to reduce radiation dose to as low as reasonably achievable. COMPARISON: None FINDINGS: [LOWER CHEST]: The partially visualized lung bases are clear without a pleural effusion. [LIVER]: Benign-appearing fluid attenuating lesion in the left hepatic lobe. No further specific imaging follow-up required, presuming no known or unknown incr eased risk of cancer above societal norms. [GALLBLADDER AND BILIARY TREE]: No cholelithiasis. [SPLEEN]: Unremarkable. [PANCREAS]: Unremarkable. [ADRENAL GLANDS]: Unremarkable [KIDNEYS]: No hydronephrosis. No nephroureterolithiasis. [BLADDER]: Unremarkable for the degree distention. [REPRODUCTIVE ORGANS]: Unremarkable. [BOWEL/MESENTERY]: Stomach is normal. No CT evidence of bowel obstruction. [ASCITES]: Absent [LYMPHADENOPATHY]: No pathologically enlarged lymph nodes by CT size criteria [VASCULATURE]: No aneurysmal dilatation. [ABDOMINAL WALL]: Unremarkable. [MUSCULOSKELETAL]: No acute fracture or aggressive focal osseous lesion. IMPRESSION: 1. No CT evidence of an acute abdominal/pelvic process. Assessment/Plan Assessment/Plan Acute abdominal pain Intractable nausea Plan 1. Admit to med surge unit 2. Breathing treatment 3. Pain control management 4. Management of fluids and electrolytes 5. Consultation for hospitalist 6. Diagnostic tests abdomen/pelvis CT 7. DVT prophylaxis-on SCDs 8. Repeat labs CBC, CMP in a.m. 9. Continue with current medical management 10. Treatment plan discussed with patient and RN. Patient verbalized understanding. Plan discussed with: Patient, Other (RN) My Orders Orders - GALDINO FARAH DNP Procedure Category Date Status Time Sod Chl 0.45% (Sodium PHA 01/11/25 In Process Chloride 0.45% Via 21:30 Allergies FABRIZIO 01/11/25 In Process 21:29 Code Status CODE 01/11/25 Transmitted 21:29 Oxygen Per Hour RT 01/11/25 Transmitted 21:29 Hydrocodone-Acet PHA 01/11/25 In Process 325mg Tab (English 21:30 Ondansetron Hcl PHA 01/11/25 In Process (Zofran) 21:30 Docusate Sodium PHA 01/11/25 In Process Capsule (Colace 21:30 Complete Blood Count LAB 01/12/25 Verified 04:00 Comprehensive LAB 01/12/25 Verified Metabolic Panel 04:00 Condition: Serious FABRIZIO 01/11/25 In Process 21:29 Acetaminophen Tablet PHA 01/11/25 In Process (Tylenol Tablet) 21:30 Clear Liq Diet DIET 01/12/25 Transmitted Breakfast Bedrest With Bathroom FABRIZIO 01/11/25 In Process Privileg 21:29 Morphine Sulfate PHA 01/11/25 In Process Injection 21:30 Sequential FABRIZIO 01/11/25 In Process Compression Device Admit ADMIT 01/11/25 Verified 22:48 Nitroglycerin PHA 01/11/25 Verified Sublingual (Ntrostat 23:00 Morphine Sulfate PHA 01/11/25 Verified Injection 23:00 Notify Md Of Changes FABRIZIO 01/11/25 Verified From Base 22:48 Machine Joint Cutter For FABRIZIO 01/11/25 Verified 24 Hours 22:48 Emergency Dysrhythmia FABRIZIO 01/11/25 Verified Protocol 22:48 Oxygen By Nasal RT 01/11/25 Verified Cannula 22:48 Problem List: (1) Acute abdominal pain (2) Intractable nausea Date of Service: January 11, 2025 Billing Provider: GALDINO FARAH DNP Common Visit Codes: [id number] INP/OBS CARE (HIGH) GALDINO FARAH DNP January 11, 2025 22:50
[2025-01-11] MEDS ORDERED: NITROGLYCERIN 0.4 MG SL TAB SL PRN (23:00)
[2025-01-11 23:57] VITALS: BP 135/77; PULSE 72; RESP 18; TEMP 99; O2SAT 96
[2025-01-12] VITALS (9 sets, daily range): BP systolic 113–135; BP diastolic 58–77; PULSE 64–74; RESP 16–18; TEMP 97.4–99; O2SAT 94–96
[2025-01-12] MEDS ORDERED: PROBTAB12 OR (02:22)
[2025-01-12] MEDS ORDERED: OMEP-434 PO (02:22)
[2025-01-12] MEDS ORDERED: PROG200C21 PO (02:22)
[2025-01-12] MEDS ORDERED: METO25TA5 PO (02:22)
[2025-01-12] MEDS ORDERED: ASPI1TAB20 PO (02:22)
[2025-01-12] MEDS ORDERED: SACC1CAP3 PO (02:22)
[2025-01-12] MEDS ORDERED: FLUT1AER7 IN (02:22)
[2025-01-12] MEDS ORDERED: MAGN400T40 OR (02:22)
[2025-01-12] MEDS ORDERED: MILK500C2 PO (02:22)
[2025-01-12] MEDS ORDERED: ALBU108A5 IN (02:22)
[2025-01-12] MEDS ORDERED: OMEG1CAP87 PO (02:22)
[2025-01-12] MEDS ORDERED: BUPR150T8 PO (02:22)
[2025-01-12] MEDS ORDERED: MONT-8 OR (02:22)
[2025-01-12] MEDS ORDERED: TURM500C3 OR (02:22)
[2025-01-12 06:30] LABS: Alanine Aminotransferase 22 U/L (7-40); Albumin 4.1 g/dL (3.2-4.8); Alkaline Phosphatase 84 U/L (46-116); Anion Gap 10 (5-15); BUN/Creatinine Ratio 11.8 (10.0-20.0); Blood Urea Nitrogen 11 mg/dL (9-23); Calcium 8.9 mg/dL (8.7-10.4); Carbon Dioxide 25 mmol/L (20-31); Chloride 106 mmol/L (98-107); Glucose 83 mg/dL (74-106); Potassium 3.8 mmol/L (3.5-5.1); Sodium 141 mmol/L (136-145); Total Protein 6.5 g/dL (5.7-8.2)
[2025-01-12 06:31] LABS: Aspartate Aminotransferase 15 U/L (13-40); Bilirubin, Total 0.3 mg/dL (0.2-1.0)
[2025-01-12 07:13] LABS: Basophils # (auto) 0 10 ^3/uL (0-0.2); Basophils % (auto) 0.5 % (0.0-2.0); Eosinophils # (auto) 0.2 10 ^3/uL (0-0.8); Eosinophils % (auto) 2.5 % (0.0-7.0); Hematocrit 39.6 % (36.0-46.0); Hemoglobin 13.4 g/dL (12.2-16.2); Lymphocytes # (auto) 1.7 10 ^3/uL (0.4-5.4); Lymphocytes % (auto) 27.4 % (10.0-50.0); Mean Corpuscular Hemoglobin 30.6 pg (28.0-32.0); Mean Corpuscular Hgb Conc. 33.8 g/dL (32.0-36.0); Mean Corpuscular Volume 90.6 fL (80.0-100.0); Monocytes # (auto) 0.5 10 ^3/uL (0-1.3); Monocytes % (auto) 7.8 % (0.0-12.0); Neutrophils # (auto) 3.8 10 ^3/uL (1.6-8.6); Neutrophils % (auto) 61.8 % (37.0-80.0); Nucleated Red Blood Cells % 0.1 %; Platelet Count (auto) 271 10^3/uL (140-450); Red Blood Cells 4.37 10^6/uL (4.0-5.20); Red Cell Distribution Width 13.9 % (11.8-14.3); White Blood Cell 6.1 10^3/uL (4.4-10.8)
[2025-01-12 09:46] LABS: Amphetamine Screen, Urine Neg (NEGATIVE)
[2025-01-12 09:48] LABS: Barbiturate Scree,Urine Neg (NEGATIVE)
[2025-01-12 09:53] LABS: Opiate Scree,Urine Neg (NEGATIVE)
[2025-01-12 09:54] LABS: INR 1.05 (0.9-1.15); Partial Thromboplastin Time 28.2 SEC (24.5-34.5); Prothrombin Time 11.1 sec (9.3-11.8)
[2025-01-12 09:54] LABS: Benzodiazephine Screen, Urine Neg (NEGATIVE); Cannabinoid Screen, Urine Neg (NEGATIVE); Cocaine Screen, Urine Neg (NEGATIVE); Phencyclidine Screen, Urine Neg (NEGATIVE)
[2025-01-12] MEDS: ONDANSETRON HCL 4 MG/2 ML VIAL IV PRN (10:18)
--- NOTE | 2025-01-12 10:44 | DVHPNRES ---
Progress Note Date Seen: January 12, 2025 Resident Creating Document: MAURICIO MILLS RESIDENT Has the PT tested + for MRSA If YES, has PT been informed?: No Medical Necessity Reason Pt with a Central, PICC or Fol: No Subjective Review of Systems DELROY MARITNO is a 54-year-old female with a PMH of angina, gastritis and COPD presented to the ED with the chief complaints of left-sided abdominal pain. She has been having pain from last associated fevers for which she went to ED, Diagnosis colitis, discharged on antibiotics again patient having continuous pain associated with fevers which has been worsening 05/02, lateralizing to sides and back which prompted her to visit ED. patient denies nausea, vomiting, constipation, diarrhea, recent travel, sick contacts and other associated symptoms. patient complaining abdominal pain below the left ribcage. Patient seen and examined at the bedside. Patient reporting mild abdominal pain which is improved due to medications. Patient reports: Feels better Objective vital signs Vital Sign Date Time Temp Pulse Resp B/P (MAP) Pulse Ox O2 Delivery O2 Flow Rate FiO2 01/12/25 09:00 97.8 74 18 130/74 (92) 96 97.8 01/12/25 08:00 Room Air* 0 21 Total Intake and Output 01/11/25 01/11/25 01/12/25 15:00 23:00 07:00 Intake Total 1000 ml 1175 ml Balance 1000 ml 1175 ml medications Current Medications Medications Dose Ordered Sig/Jose Route Start Time Stop Time Status Last Admin Dose Admin Sodium Chloride 1,000 ml @ 75 mls/hr [id number] IV 01/11/25 21:30 01/11/25 21:30 75 MLS/HR Acetaminophen/ Hydrocodone Bitart 1 tab Q4HP PRN PO 01/11/25 21:30 Ondansetron HCl 4 mg Q4HP PRN IV 01/11/25 21:30 01/12/25 10:18 4 MG Docusate Sodium 100 mg BIDPRN PRN PO 01/11/25 21:30 Acetaminophen 650 mg Q6HP PRN PO 01/11/25 21:30 Morphine Sulfate 2 mg Q4HPRN PRN IV 01/11/25 21:30 Nitroglycerin 0.4 mg Q5MINP PRN SL 01/11/25 23:00 Morphine Sulfate 2 mg Q30M PRN IV 01/11/25 23:00 Pantoprazole Sodium 40 mg DAILY IV 01/12/25 10:45 UNV Sucralfate 1 gm TID@0600,1130,2200 GT 01/12/25 11:30 UNV Ceftriaxone Sodium 50 ml @ 100 mls/hr DAILY@09 IV 01/13/25 09:00 UNV Metronidazole 100 ml @ 100 mls/hr Q8HR IV 01/12/25 14:00 UNV Examination Pt is lying on bed General Appearance: Alert, Oriented X3, Cooperative, Not in acute distress HEENT: Atraumatic, Mucous membranes moist/pink Respiratory: Clear to auscultation, Normal air movement, No added sounds Cardiovascular: Regular rate, Normal S1, Normal S2, No murmurs Abdominal:Epigastric tenderness. Active bowel sounds, Soft, no distention, Extremities: No edema, Normal pulses, No tenderness/swelling Skin: No Significant rash, except past surgical scars Neuro: Normal speech, sensorimotor deficits none Psych/Mental Status: Mental status NL, Mood NL Nurse was there as sharperone during examination laboratory and microbiology Laboratory Tests 01/12/25 05:36 Test 01/12/25 05:36 Range/Units Serum Glucose 83 74-106 mg/dL Labs and/or images reviewed: Labs reviewed by me, Image(s) reviewed by me Problem List/Assessment/Plan Problem List/Assessment/Plan # ? Gastritis/ Colitis # R/o pancreatitis - CT abdominal pelvis showed no acute changes - Protonix and Carafate - Flagyl and Rocephin - clear-> full liquid diet - blood cultures - lipase, pending # PRATIMA likely VMN- resolving Protonix No VTE Ppx -ambulatory Goals of care discussed with the patient for more than 29 minutes: Full code status Case discussed with , patient and nurse Plan discussed with: Patient My Orders My Orders Orders - MAURICIO MILLS RESIDENT Procedure Category Date Status Time Vitamin B12 LAB 01/12/25 In Process 09:12 Pantoprazole PHA 01/12/25 Logged (Protonix) 10:45 Sucralfate Susp PHA 01/12/25 Logged (Carafate Susp) 11:30 Lipase LAB 01/12/25 Logged 10:33 Ceftriaxone 1gm/50ml PHA 01/13/25 Logged D5w (Rocephin) 09:00 Ceftriaxone 1gm/50ml PHA 01/12/25 Logged D5w (Rocephin) 10:45 Metronidazole PHA 01/12/25 Logged 500mg/100ml (Flagyl 14:00 MAURICIO MILLS RESIDENT January 12, 2025 10:44
[2025-01-12] MEDS: PANTOPRAZOLE 40 MG/10 ML VIAL INJ IV SCH (12:12)
[2025-01-12] MEDS: SUCRALFATE 1 GM/10 ML ORAL SUSP GT SCH (12:12)
[2025-01-12] MEDS: cefTRIAXone 1GM/50ML D5W 50 ML IV ONE (12:12)
[2025-01-12] MEDS: ACETAMINOPHEN 325 MG TAB PO PRN (12:25)
--- NOTE | 2025-01-12 12:56 | DVH ---
INDICATION: pain TECHNIQUE: Multiple real-time sonographic images of the abdomen were obtained. COMPARISON: None FINDINGS: The liver is increased in echogenicity. The liver measures 15cm. No intrahepatic biliary d uctal dilatation is noted. There is a hepatic cyst measuring 2 cm. The gallbladder wall measures 0.2 cm and is unremarkable. No gallstones or sludge is seen. The com mon duct measures 0.3 cm and is unremarkable. No pericholecystic fluid is noted. The right kidney measures 11.5cm. No hydronephrosis. The left kidney measures 10.9cm. No hydronephr osis. The spleen measures 10.0cm, within normal limits. The echogenicity is within normal limits. The pancreas is not well visualized due to obscuration from bowel gas. The visualized portions of the IVC and aorta are grossly unremarkable. IMPRESSION: Hepatic cyst. Hepatic steatosis.
[2025-01-12] MEDS: metroNIDAZOLE 500MG/100ML 100 ML IV SCH (14:12)
[2025-01-13 01:00] VITALS: BP 152/78; PULSE 60; RESP 18; TEMP 98.8; O2SAT 94
[2025-01-13 05:53] VITALS: BP 131/66; PULSE 75; RESP 18; TEMP 99.4; O2SAT 95
[2025-01-13 08:00] VITALS: PULSE 76
[2025-01-13 08:32] VITALS: BP 126/62; PULSE 69; RESP 16; TEMP 97.3; O2SAT 96
[2025-01-13] MEDS: cefTRIAXone 1GM/50ML D5W 50 ML IV SCH (09:39)
[2025-01-13 12:30] VITALS: BP 129/65; PULSE 67; RESP 18; TEMP 97; O2SAT 97
--- NOTE | 2025-01-13 14:29 | DVHDS2 ---
Discharge Summary Date of Admission January 11, 2025 at 22:48 Date of Discharge: January 13, 2025 Admitting Diagnosis Abdominal pain Labs/Diagnostic Data: Laboratory Results Test 01/12/25 05:36 01/11/25 17:17 01/11/25 16:53 White Blood Count 6.1 10^3/uL (4.4-10.8) Red Blood Count 4.37 10^6/uL (4.0-5.20) Hemoglobin 13.4 g/dL (12.2-16.2) Hematocrit 39.6 % (36.0-46.0) Mean Corpuscular Volume 90.6 fL (80.0-100.0) Mean Corpuscular Hemoglobin 30.6 pg (28.0-32.0) Mean Corpuscular Hemoglobin Concent 33.8 g/dL (32.0-36.0) Red Cell Distribution Width 13.9 % (11.8-14.3) Platelet Count 271 10^3/uL (140-450) Mean Platelet Volume 7.4 fL (6.9-10.8) Neutrophils (%) (Auto) 61.8 % (37.0-80.0) Lymphocytes (%) (Auto) 27.4 % (10.0-50.0) Monocytes (%) (Auto) 7.8 % (0.0-12.0) Eosinophils (%) (Auto) 2.5 % (0.0-7.0) Basophils (%) (Auto) 0.5 % (0.0-2.0) Neutrophils # (Auto) 3.8 10 ^3/uL (1.6-8.6) Lymphocytes # (Auto) 1.7 10 ^3/uL (0.4-5.4) Monocytes # (Auto) 0.5 10 ^3/uL (0-1.3) Eosinophils # (Auto) 0.2 10 ^3/uL (0-0.8) Basophils # (Auto) 0 10 ^3/uL (0-0.2) Nucleated Red Blood Cells 0.1 % Prothrombin Time 11.1 sec (9.3-11.8) Prothrombin Time INR 1.05 (0.9-1.15) Activated Partial Thromboplast Time 28.2 SEC (24.5-34.5) Sodium Level 141 mmol/L (136-145) Potassium Level 3.8 mmol/L (3.5-5.1) Chloride Level 106 mmol/L (98-107) Carbon Dioxide Level 25 mmol/L (20-31) Anion Gap 10 (5-15) Blood Urea Nitrogen 11 mg/dL (9-23) Creatinine 0.93 mg/dL (0.550-1.02) Glomerular Filtration Rate Calc 73 mL/min (>90) BUN/Creatinine Ratio 11.8 (10.0-20.0) Serum Glucose 83 mg/dL (74-106) Hemoglobin A1c 5.5 % A1C (<5.7) Calcium Level 8.9 mg/dL (8.7-10.4) Magnesium Level 2.1 mg/dL (1.6-2.6) Total Bilirubin 0.3 mg/dL (0.2-1.0) Aspartate Amino Transferase (AST) 15 U/L (13-40) Alanine Aminotransferase (ALT) 22 U/L (7-40) Alkaline Phosphatase 84 U/L (46-116) Total Protein 6.5 g/dL (5.7-8.2) Albumin 4.1 g/dL (3.2-4.8) Lipase 28 U/L (12-53) Vitamin B12 Level > 4000 pg/mL (211-911) Vitamin D 25-Hydroxy 61.2 ng/mL (30.0-100) Thyroid Stimulating Hormone (TSH) 1.42 uIU/mL (0.55-4.78) Urine Color Colorless (Yellow) Urine Clarity Clear (Clear) Urine pH 5.5 (5.0-9.0) Urine Specific Primrose 1.004 (1.001-1.035) Urine Protein Negative (Negative) Urine Ketones Negative (Negative) Urine Blood Negative /uL (Negative) Urine Nitrite Negative (Negative) Urine Bilirubin Negative (Negative) Urine Urobilinogen Normal mg/dL (Negative) Urine Leukocyte Esterase Negative /uL (Negative) Urine RBC 1 /hpf (0 - 4) Urine Microscopic WBC 1 /HPF (0-5) Urine Squamous Epithelial Cells Few /hpf (<5) Urine Bacteria Few /hpf (None Seen) Urine Glucose Normal mg/dL (Normal) Urine Opiates Screen Neg (NEGATIVE) Urine Fentanyl Screen Neg (NEGATIVE) Urine Barbiturates Screen Neg (NEGATIVE) Urine Phencyclidine Screen Neg (NEGATIVE) Urine Amphetamines Screen Neg (NEGATIVE) Urine Benzodiazepines Screen Neg (NEGATIVE) Urine Cocaine Screen Neg (NEGATIVE) Urine Cannabinoids Screen Neg (NEGATIVE) Lactic Acid Level 0.6 mmol/L (0.4-2.0) Other Laboratory Tests 01/12/25 05:36 Brief Hx & Hospital Course: 54-year-old lady admitted to the hospital from the emergency room with abdominal pain localized in the left abdominal area. Abdominal CT with IV contrast was negative. Patient was admitted and treated with possible gastritis/colitis. Patient is doing much better today and she wants to go home. No more abdominal pain no nausea vomit no fever no chills. Patient is being discharged home to follow up with PCP and to be referred for GI. She has omeprazole at home that she will keep taking 40 mg daily Condition at Discharge: Good Final Diagnosis/Problems List Abdominal pain of unclear etiology/resolved Discharge Disposition: Home Discharge Instruct/Medications Diet: Regular Activity: No Restrictions, As Tolerated Follow Up/Referral: Follow up with PCP within one week Follow up with GI within two weeks Medications: Omeprazole 40 mg daily. Patient has the medication already Discharge Statement: "Patient was advised to return to the ER or call 911 if any headaches, dizziness, shortness of breath, chest pain, abdominal pain, bleeding, fevers, or worsening of medical condition. Patient was counseled about treatment plan, medications, possible side effects, patientverbalized understanding. All questions were answered to the best of my ability. This discharge took greater then 30 minutes in planning, reviewing documentation, counseling the patient, and discussing with other team members." ASSESSMENT ASSESSMENT Assessment YASMIN MEDINA MD January 13, 2025 14:29
[2025-01-13 15:12] VITALS: BP 145/75; PULSE 54; RESP 18; TEMP 98.4; O2SAT 96
== END 2025-01-13 15:43 | disposition home or self-care (01) | DRG 392 ==
LOC: ER 16:09 → EEVIPCON 16:09 → OVERFLOW 22:48 → TELE-EAST 23:19 → OVERFLOW 23:19 → TELE-EAST 23:56
PROVIDERS: ADMIT Nurse Practitioner Family; ATTEND Nurse Practitioner Family
DX: K29.70 Gastritis, unspecified, without bleeding (principal); N17.9 Acute kidney failure, unspecified; K52.9 Noninfective gastroenteritis and colitis, unspecified; J44.9 Chronic obstructive pulmonary disease, unspecified; Z79.2 Long term (current) use of antibiotics; Z79.1 Long term (current) use of non-steroidal anti-inflammatories (NSAID); Z79.899 Other long term (current) drug therapy
CPT/HCPCS: 36415; 74177; 76700; 80053; 80307; 81001; 82306; 82607; 83036; 83605; 83690; 83735; 84443; 85025; 85610; 85730; 87040; 96361; 96374; 96375; G0378; J2405; J2470; J3490

== ENCOUNTER 2025-05-28 12:09 | Inpatient (IN) | payer BC ==
[2025-05-28] VITALS (8 sets, daily range): BP systolic 105–121; BP diastolic 54–62; PULSE 72–76; RESP 18–33; TEMP 98.7–98.8; O2SAT 95–100
[~2025-05-28] VITALS: Ht 170.2 cm; Wt 101.7 kg
[~2025-05-28 12:09] MED LIST changes: +ALBU108A5 IN; +ASPI1TAB20 PO; +BUPR150T8 PO; +FLUT1AER7 IN; +MAGN400T40 OR; +METO25TA5 PO; +MILK500C2 PO; +MONT-8 OR; +OMEG1CAP87 PO; +OMEP-434 PO; +PROBTAB12 OR; +PROG200C21 PO; +SACC1CAP3 PO; +TURM500C3 OR
--- NOTE | 2025-05-28 12:38 | ED.PDOC ---
SOB-HPI HPI Comments This is a 55 year old female presenting to the ED with chief complaint of chest pain/SOB. Patient reports that she had been experiencing a fever a week ago, being prescribed a Z-Alexandre from her PCP along with testing negative for COVID-19 and Influenza. Patient relays that she felt better on Wednesday, however, the day after she begun to experience a fever again with associated left sided chest pain that radiates into her back, cough, and SOB. Patient states that movement, coughing, and palpation causes more pain to her back and chest. Patient denies any dizziness, chills, hemoptysis, headache, or nausea. Chief Complaint: Shortness of Breath Time Seen by MD: 12:34 Primary Care Provider: UNKNOWN Reviewed notes: Nurses Notes, Medications, Allergies Information Source: Patient Mode of Arrival: Ambulatory Severity: Moderate Timing: Days Duration: Since onset Context: At Rest PE Risk Factors: None History of: COPD Prehospital treatment: Other (Antibiotics) Modifying Factors: Nothing Associated Signs and Symptoms: Fever, Cough, Chest Pain Quality: Sharp Radiation: Back Location: Chest (L) If cough with SOB: Non-Productive Past Medical History PAST MEDICAL HISTORY: Angina, COPD Surgical History: Denies all surgeries [employer]FORMAT[employer] SOFTWARE ENGINEER History: No Pertinent [employer] SOFTWARE ENGINEER History Family History Family History: Reviewed,noncontributory to illness, No family hx of Cancer, No family hx of DM, No family hx of Heart devante, No family hx of HTN, No family hx ofKidney devante, No family hx of Liver devante, No family hx of Lung devante, No family hx of Stroke Social History Smoker: Non-Smoker Alcohol: Denies ETOH Use Drugs: Denies Drug Use Lives In: Home Constitutional: denies: chills, diaphoresis, fatigue, fever, malaise, sweats, weakness, others EENTM: denies: blurred vision, double vision, ear bleeding, ear discharge, ear drainage, ear pain, ear ringing, eye pain, eye redness, hearing loss, mouth pain, mouth swelling, nasal discharge, nose bleeding, nose congestion, nose pain, photophobia, tearing, throat pain, throat swelling, voice changes, others Respiratory: reports: cough, shortness of breath; denies: hemoptysis, orthopnea, SOB at rest, SOB with excertion, stridor, wheezing, others Cardiovascular: reports: chest pain; denies: dizzy spells, diaphoresis, Dyspnea on exertion, edema, irregular heart beat, left arm pain, lightheadedness, palpitations, PND, syncope, others Gastrointestinal: denies: abdomen distended, abdominal pain, blood streaked bowels, constipated, diarrhea, dysphagia, difficulty swallowing, hematemesis, melena, nausea, poor appetite, poor fluid intake, rectal bleeding, rectal pain, vomiting, others Genitourinary: denies: abnormal vagina bleeding, burning, dyspareunia, dysuria, flank pain, frequency, hematuria, incontinence, pain, , vagina discharge, urgency, others Neurological: denies: dizziness, fainting, headache, left sided numbness, left sided weakness, numbness, paresthesia, pre-existing deficit, right sided numbness, right sided weakness, seizure, speech problems, tingling, tremors, weakness, others Musculoskeletal: reports: back pain; denies: gout, joint pain, joint swelling, muscle pain, muscle stiffness, neck pain, others Integumetry: denies: bruises, change in color, change in hair/nails, dryness, laceration, lesions, lumps, rash, wounds, others Allergic/Immunocompromised: denies: Difficulty Healing, Frequent Infections, Hives, Itching, others Hematologic/Lymphatic: denies: anemia, blood clots, easy bleeding, easy bruising, swollen glands, others Endocrine: denies: excessive hunger, excessive sweating, excessive thirst, excessive urination, flushing, intolerance to cold, intolerance to heat, unexplained weight gain, unexplained weight loss, others Psychiatric: denies: anxiety, bipolar disorder, depression, hopeless, panic disorder, schizophrenia, sleepless, suicidal, others All Other Systems: Reviewed and Negative Physical Exam General Appearance: No Apparent Distress, Normal HEENT: Normal ENT Inspection, Pharynx Normal, TMs Normal Neck: Full Range of Motion, Non-Tender, Normal, Normal Inspection Respiratory: Chest Non-Tender, Lungs Clear, No Accessory Muscle Use, No Respiratory Distress, Normal Breath Sounds Cardiovascular: No Edema, No JVD, No Murmur, No Gallop, Normal Peripheral Pulses, Regular Rate/Rhythm Breast Exam: Deferred Gastrointestinal: No Organomegaly, Non Tender, No Pulsatile Mass, Normal Bowel Sounds, Soft Genitalia: Deferred Pelvic: Deferred Rectal: Deferred Extremities: No calf tenderness, Normal capillary refill, Normal inspection, Normal range of motion, Non-tender, No pedal edema Musculoskeletal : Apperance: Normal Neurologic: Alert, flavor maker II-XII nml as Tested, No Motor Deficits, Normal Affect, Normal Mood, No Sensory Deficits Cerebellar Function: Normal Reflexes: Normal Skin: Dry, Normal Color, Warm Lymphatic: No Adenopathy Was a procedure done? Was a procedure done?: No Differential Dx Differential Diagnosis: Anxiety, Asthma, Bronchitis, CHF, COPD, Hyperventilation, Myocardial infarction, Panic Attack, Pneumonia, Pneumothorax, Pulmonary Embolism, Respiratory Distress, URI X-Ray, Labs, Meds, VS Vital Signs Date Time Temp Pulse Resp B/P (MAP) Pulse Ox O2 Delivery O2 Flow Rate FiO2 05/28/25 14:25 75 05/28/25 13:21 89 05/28/25 12:27 33 97 Room Air* 0 21 05/28/25 12:27 100.0 84 33 150/62 (91) 96 100.0 05/28/25 12:11 100.0 86 24 133/64 95 100.0 Lab Test 05/28/25 13:46 05/28/25 12:55 Range/Units Troponin I High Sensitivity < 3 L < 3 L </=34 ng/L White Blood Count 11.5 H 4.4-10.8 10^3/uL Red Blood Count 4.19 4.0-5.20 10^6/uL Hemoglobin 12.6 12.2-16.2 g/dL Hematocrit 37.5 36.0-46.0 % Mean Corpuscular Volume 89.6 80.0-100.0 fL Mean Corpuscular Hemoglobin 30.0 28.0-32.0 pg Mean Corpuscular Hemoglobin Concent 33.5 32.0-36.0 g/dL Red Cell Distribution Width 13.1 11.8-14.3 % Platelet Count 354 140-450 10^3/uL Mean Platelet Volume 7.3 6.9-10.8 fL Neutrophils (%) (Auto) 79.8 37.0-80.0 % Lymphocytes (%) (Auto) 12.5 10.0-50.0 % Monocytes (%) (Auto) 6.7 0.0-12.0 % Eosinophils (%) (Auto) 0.3 0.0-7.0 % Basophils (%) (Auto) 0.7 0.0-2.0 % Neutrophils # (Auto) 9.2 H 1.6-8.6 10 ^3/uL Lymphocytes # (Auto) 1.4 0.4-5.4 10 ^3/uL Monocytes # (Auto) 0.8 0-1.3 10 ^3/uL Eosinophils # (Auto) 0 0-0.8 10 ^3/uL Basophils # (Auto) 0.1 0-0.2 10 ^3/uL Nucleated Red Blood Cells 0.1 % Sodium Level 138 136-145 mmol/L Potassium Level 3.8 3.5-5.1 mmol/L Chloride Level 103 98-107 mmol/L Carbon Dioxide Level 23 20-31 mmol/L Anion Gap 12 5-15 Blood Urea Nitrogen 15 9-23 mg/dL Creatinine 0.78 0.550-1.02 mg/dL Glomerular Filtration Rate Calc 90 >90 mL/min BUN/Creatinine Ratio 19.2 10.0-20.0 Serum Glucose 165 H 74-106 mg/dL Calcium Level 8.7 8.7-10.4 mg/dL Current Medications Medications (Trade) Dose Ordered Sig/Jose Route Start Time Stop Time Status Last Admin Ketorolac Tromethamine (Toradol Injection) 15 mg ONCE ONCE IV 05/28/25 13:15 05/28/25 13:16 DC 05/28/25 13:18 Alprazolam (Xanax Tablet) 0.25 mg ONCE ONCE PO 05/28/25 13:15 05/28/25 13:16 DC 05/28/25 13:18 Time of 1ST Reevaluation: 13:33 Reevaluation 1ST: Unchanged Patient Education/Counseling: Diagnosis, Treatment, Prognosis, Need For Follow Up Family Education/Counseling: Diagnosis, Treatment, Prognosis, Need For Follow Up Comments THIS IS A PATIENT WHO PRESENTS WITH LEFT LOWER POSTERIOR CHEST PAIN WITH INSPIRATION. PATIENT ALSO REPORTS HAVING A FEVER AND COUGH. SHE HAD JUST FINISHED COURSE OF ZITHROMAX AND WAS BRIEFLY IMPROVED FOR ONE DAY WHEN SYMPTOMS WORSENED AGAIN. THE WORKUP HERE ONLY SHOWS MILD LEUKOCYTOSIS AND THE LEFT LOWER LOBE ATELECTASIS. HOWEVER WITH HER SYMPTOMS I AM SUSPICIOUS FOR POSSIBLE PNEUMONIA ON THE LOWER LUNG WHICH FAILED OUTPATIENT THERAPY. PATIENT REMAINS SYMPTOMATIC. SHE HAS NO EVIDENCE OF AL. SHE HAS NO PNEUMOTHORAX. SHE DOES NOT HAVE A LUNG MASS. SHE DOES NOT HAVE SHINGLES OR RIB FRACTURES. I AM NOT SUSPECTING PULMONARY EMBOLISM SHE IS AT RISK FACTORS OR FINDINGS TO SUPPORT THAT. PATIENT ADMITTED FOR TREATMENT FOR OUTPATIENT FAILURE OF PNEUMONIA Additional Information Reviewed patient's previous visit(s): 01/11/25 for abdominal pain The following tests were ordered, and results were reviewed by me: Additional information was gathered from interviewing the following independent historian: None I reviewed and agreed with the following test results read by other provider: I discussed treatments and results with medical personnel and: PATIENT Comprehensive systems review obtained and negative except for what is stated in the HPI. SEPSIS Sepsis Screen Date sepsis recognized/suspect: May 28, 2025 Time Sepsis recognized/suspect: 1210 Recent Procedure: No On Antibiotic Therapy: No Respiratory Rate >20: Yes Heart Rate >90: No Temp<36 C (96.8 F) or >38.3 C: No SBP <90 or MAP <65 mmHG: No New Acute Mental Status Change: No Is the patient on CPAP, BIPAP,: No Physician Orders Chest Portable (05/28/25 12:34) Troponin-I Hs (05/28/25 15:34) Continuous Ekg Monitoring 08,12,16,20,00,04 (05/28/25 12:34) Electrocardigram (05/28/25 13:34) Electrocardigram (05/28/25 15:34) Vital Signs Date Time Temp Pulse Resp B/P (MAP) Pulse Ox O2 Delivery O2 Flow Rate FiO2 05/28/25 14:25 75 05/28/25 13:21 89 05/28/25 12:27 33 97 Room Air* 0 21 05/28/25 12:27 100.0 84 33 150/62 (91) 96 100.0 05/28/25 12:11 100.0 86 24 133/64 95 100.0 Laboratory Tests Test 05/28/25 12:55 White Blood Count 11.5 10^3/uL (4.4-10.8) H Medications Medications Dose Ordered Sig/Jose Route Start Time Stop Time Status Last Admin Dose Admin Alprazolam 0.25 mg ONCE ONCE PO 05/28/25 13:15 05/28/25 13:16 DC 05/28/25 13:18 Ketorolac Tromethamine 15 mg ONCE ONCE IV 05/28/25 13:15 05/28/25 13:16 DC 05/28/25 13:18 Departure 1 Departure Time of Disposition: 14:57 Impression: Primary Impression: Pneumonia Qualified Codes: J18.9 - Pneumonia, unspecified organism Disposition: ADMITTED INPATIENT Admit to: Med Surg Condition: Stable Discharged With: Self, Spouse Critical Care Note Critical Care Time?: No Stability Stability form required: No Heart Score Heart Score: Heart Score Response (Comments) Value History N/A 0 EKG N/A 0 Age N/A 0 Risk Factors N/A 0 Troponin N/A 0 Total 0 I personally scribed for VERA KAISER MD ([email or web address]) on 05/28/25 at 12:38. Electronically submitted by Cam Ye [email or web address]). VERA KAISER MD May 28, 2025 12:38
--- NOTE | 2025-05-28 13:06 | DVH ---
CHEST RADIOGRAPH Indication: cp Technique: Single frontal view of the chest was obtained COMPARISON: None FINDINGS: Lines and Tubes: None Lungs: Congestion. Left basilar subsegmental atelectasis. Pleura: No effusion. No pneumothorax. Cardiomediastinal contours: Unremarkable Bones: Unremarkable IMPRESSION: Congestion. Left basilar subsegmental atelectasis.
[2025-05-28 13:14] LABS: Hematocrit 37.5 % (36.0-46.0); Hemoglobin 12.6 g/dL (12.2-16.2); Mean Corpuscular Hemoglobin 30.0 pg (28.0-32.0); Mean Corpuscular Volume 89.6 fL (80.0-100.0); Nucleated Red Blood Cells % 0.1 %
[2025-05-28] MEDS: ALPRAZolam 0.25 MG TAB PO ONE (13:18)
[2025-05-28] MEDS: KETOROLAC TROMETH 30 MG/ML 1ML VIAL IV ONE (13:18)
--- NOTE | 2025-05-28 13:22 | ECG ---
[facility] Test Date: 2025-05-28 Test Time: 13:21:20 Pat Name: DELROY MARTINO Department: [facility] ED Patient ID: [id number] Room: [id number] Gender: F Web Marketing Assistant: SHAR : 1970 Requested By: VERA KAISER Order Number: [id number] Reading MD: Steve Hernández Measurements Intervals [place] Rate: 89 P: 35 [place]: 130 QRS: 53 QRSD: 96 T: 33 QT: 346 QTc: 421 Interpretive Statements Sinus tachycardia Ventricular trigeminy Low voltage, precordial leads Electronically Signed On 06-02-2025 20:26:36 PDT by Steve Hernández Please click the below link to view image of tracing.
[2025-05-28 13:27] LABS: Chloride 103 mmol/L (98-107); Potassium 3.8 mmol/L (3.5-5.1); Sodium 138 mmol/L (136-145)
[2025-05-28 13:28] LABS: Anion Gap 12 (5-15); Calcium 8.7 mg/dL (8.7-10.4); Carbon Dioxide 23 mmol/L (20-31)
[2025-05-28 13:33] LABS: BUN/Creatinine Ratio 19.2 (10.0-20.0); Blood Urea Nitrogen 15 mg/dL (9-23)
[2025-05-28 13:34] LABS: Glucose 165 mg/dL (74-106)
[2025-05-28] MEDS: ACETAMINOPHEN 325 MG TAB PO ONE (16:50)
--- NOTE | 2025-05-28 17:01 | DVHHPRES ---
History of Present Illness Resident Creating Document: JAX CHÁVEZ History of Present Illness This is a 55-year-old female with a past medical history of Prinzmetal angina, COPD, asthma, and mitral valve prolapse who presents to the emergency department with complaints of chest pain and shortness of breath. Symptoms began two days ago on last Wednesday, with worsening last night, prompting her decision to seek emergency care. She describes the chest pain as stabbing in nature, radiating to both her back and shoulders. Pain is described as 7/10 initially, now improved t o 10/02. Pain worsens with movement, coughing, and palpation. Associated symptoms include fever, chills, mild cough, fatigue, slight dizziness, unintentional weight loss, and mild urinary frequency. She was previously evaluated by her PCP and prescribed a Z-Alexandre, which she completed on 05/26/25. COVID-19 and Influenza tests were negative. She felt improved by Wednesday, but subsequently developed recurrent fever along with left-sided chest pain, cough, and worsening shortness of breath. She denies hemoptysis, headache, nausea, or recent trauma. Past Medical History Prinzmetal angina, COPD, Ashtma, MVP, MR, Depression Past Surgical History Tubal ligation, Appendectomy Family History Mother: Rheumatoid arthritis. Father: Dementia. Daughter: SLE. Paternal grandmother: Uterine cancer Smoke: Quit ALCOHOL: none Drugs: None Lives: with Family Past Social History Smoke: Quit 10 years ago, before that more than 20 pack years. Review of Systems Constitutional: Yes: Fever, Chills Respiratory: Cough, Shortness of breath Cardiovascular: Chest Pain Genitourinary: Frequency Musculoskeletal: shoulder pain, back pain Allergies: Coded Allergies: No Known Drug Allergy (Verified Allergy, Unknown, 12/01/22) Medications Current Medications Medications Dose Ordered Sig/Jose Route Start Time Stop Time Status Last Admin Dose Admin Ceftriaxone Sodium 50 ml @ 100 mls/hr DAILY@09 IV 05/29/25 09:00 UNV Doxycycline Hyclate 100 ml @ 50 mls/hr Q12H IV 05/28/25 22:00 UNV Albuterol 2.5 mg Q6HPRN PRN NEB 05/28/25 16:45 UNV Ipratropium [place] 0.5 mg Q6HPRN PRN NEB 05/28/25 16:45 UNV Pantoprazole Sodium 40 mg DAILY@0600 PO 05/29/25 06:00 UNV Exam Vital Signs Vital Signs Date Time Temp Pulse Resp B/P (MAP) Pulse Ox O2 Delivery O2 Flow Rate FiO2 05/28/25 16:50 100.1 05/28/25 14:30 79 26 106/47 (66) 95 05/28/25 12:27 Room Air* 0 21 Exam General Appearance: Cooperative. Well developed. Well nourished. NAD Head Exam: Normal inspection Neck Exam: Normal inspection. Non-tender. Normal alignment Pulmonary/Respiratory: Chest non-tender. Clear bilateral breath sounds, crackles, no wheezing. Cardiovascular/Chest: Regular rate and rhythm. No murmurs. No JVD. Peripheral Pulses: 2+ Radial (R). 2+ Radial (L). 2+ Pedal (R). 2+ Pedal (L) Abdominal Exam: Normal bowel sounds. Soft. normal abdomen, no visible veins, Nontender. No hepatospenomegaly. No masses Ankle Exam: Negative ankle edema Lower extremities: lower extremity 1+ pitting edema Neuro/Mental Status: A&O x4. Coherent. Thoughts/Psych: Normal thought pattern. Appropriate mood and affect. Good judgement and insight Skin Exam: Normal inspection. Normal color. Warm. Dry Labs/Xrays Labs Test 05/28/25 13:46 05/28/25 12:55 Range/Units Troponin I High Sensitivity < 3 L </=34 ng/L White Blood Count 11.5 H 4.4-10.8 10^3/uL Red Blood Count 4.19 4.0-5.20 10^6/uL Hemoglobin 12.6 12.2-16.2 g/dL Hematocrit 37.5 36.0-46.0 % Mean Corpuscular Volume 89.6 80.0-100.0 fL Mean Corpuscular Hemoglobin 30.0 28.0-32.0 pg Mean Corpuscular Hemoglobin Concent 33.5 32.0-36.0 g/dL Red Cell Distribution Width 13.1 11.8-14.3 % Platelet Count 354 140-450 10^3/uL Mean Platelet Volume 7.3 6.9-10.8 fL Neutrophils (%) (Auto) 79.8 37.0-80.0 % Lymphocytes (%) (Auto) 12.5 10.0-50.0 % Monocytes (%) (Auto) 6.7 0.0-12.0 % Eosinophils (%) (Auto) 0.3 0.0-7.0 % Basophils (%) (Auto) 0.7 0.0-2.0 % Neutrophils # (Auto) 9.2 H 1.6-8.6 10 ^3/uL Lymphocytes # (Auto) 1.4 0.4-5.4 10 ^3/uL Monocytes # (Auto) 0.8 0-1.3 10 ^3/uL Eosinophils # (Auto) 0 0-0.8 10 ^3/uL Basophils # (Auto) 0.1 0-0.2 10 ^3/uL Nucleated Red Blood Cells 0.1 % Sodium Level 138 136-145 mmol/L Potassium Level 3.8 3.5-5.1 mmol/L Chloride Level 103 98-107 mmol/L Carbon Dioxide Level 23 20-31 mmol/L Anion Gap 12 5-15 Blood Urea Nitrogen 15 9-23 mg/dL Creatinine 0.78 0.550-1.02 mg/dL Glomerular Filtration Rate Calc 90 >90 mL/min BUN/Creatinine Ratio 19.2 10.0-20.0 Serum Glucose 165 H 74-106 mg/dL Calcium Level 8.7 8.7-10.4 mg/dL SEPSIS Sepsis Screen Date sepsis recognized/suspect: May 28, 2025 Time Sepsis recognized/suspect: 1229 Recent Procedure: No On Antibiotic Therapy: No Respiratory Rate >20: Yes Heart Rate >90: No Temp<36 C (96.8 F) or >38.3 C: No SBP <90 or MAP <65 mmHG: No New Acute Mental Status Change: No Is the patient on CPAP, BIPAP,: No Physician Orders Chest Portable (05/28/25 12:34) Continuous Ekg Monitoring 08,12,16,20,00,04 (05/28/25 12:34) Electrocardigram (05/28/25 13:34) Electrocardigram (05/28/25 15:34) Admit (05/28/25 16:26) Oxygen By Nasal Cannula (05/28/25 16:26) Stat Ekg For Chest Pain (05/28/25 16:26) Notify Of Changes From Base (05/28/25 16:26) Covid19 Antigen Mary (05/28/25 ) Rapid Influenza A&B (05/28/25 16:36) Echo 2d Mode Cardiac Dop (05/28/25 16:36) Drug Screen (05/28/25 16:36) Respiratory Culture W/ Gs (05/28/25 16:36) Lactic Acid W/ Reflex Order (05/28/25 16:36) B-Type Natriuretic Peptide (05/28/25 16:36) Ceftriaxone 1gm/50ml (Rocephin) (05/29/25 09:00) Doxycycline 100mg/100ml (Vibramycin) (05/28/25 22:00) Hepatic Panel (05/28/25 16:36) Urinalysis (05/28/25 16:36) Consistent Carb(Ccho)Diabetes (05/28/25 Dinner) Albuterol Medneb (Ventolin Medneb) (05/28/25 16:45) Ipratropium Medneb (Atrovent Medneb) (05/28/25 16:45) Pantoprazole Tablet (Protonix Tablet) (05/29/25 06:00) Pantoprazole Tablet (Protonix Tablet) (05/28/25 16:45) Ibuprofen Tablet (Motrin Tablet) (05/28/25 16:45) Vancomycin (05/28/25 16:45) Blood Culture (05/28/25 16:36) Vital Signs Date Time Temp Pulse Resp B/P (MAP) Pulse Ox O2 Delivery O2 Flow Rate FiO2 05/28/25 16:50 100.1 05/28/25 14:30 79 26 106/47 (66) 95 05/28/25 14:25 75 05/28/25 13:21 89 05/28/25 12:27 33 97 Room Air* 0 21 05/28/25 12:27 100.0 84 33 150/62 (91) 96 100.0 05/28/25 12:11 100.0 86 24 133/64 95 100.0 Laboratory Tests Test 05/28/25 12:55 White Blood Count 11.5 10^3/uL (4.4-10.8) H Medications Medications Dose Ordered Sig/Jose Route Start Time Stop Time Status Last Admin Dose Admin Acetaminophen 650 mg ONCE ONCE PO 05/28/25 16:45 05/28/25 16:46 DC 05/28/25 16:50 650 MG Alprazolam 0.25 mg ONCE ONCE PO 05/28/25 13:15 05/28/25 13:16 DC 05/28/25 13:18 0.25 MG Ceftriaxone Sodium 50 ml @ 100 mls/hr ONCE ONCE IV 05/28/25 15:00 05/28/25 15:29 DC 05/28/25 15:03 100 MLS/HR Ketorolac Tromethamine 15 mg ONCE ONCE IV 05/28/25 13:15 05/28/25 13:16 DC 05/28/25 13:18 15 MG Assessment/Plan Assessment/Plan # Community acquired pneumonia # pneumonia likely d/t gram +/- bacteria # h/o COPD # h/o Asthma - Chest X-ray shows Cardiomegaly with increased bilateral interstitial prominence and trace bilateral pleural effusions. - IV antibiotic Vancomycin, Ceftriaxone and Doxycycline - Albuterol 2.5 mg Q6h PRN - Ipratropium 0.5 mg Q6h PRN - Ibuprofen 400 mg q8h prn - NS - Tylenol 650 mg # Prinzmetal angina # Mitral valve prolapse # Mitral regurgitation - EKG: Sinus tachycardia. Ventricular trigeminy. Low voltage, precordial leads. - follow-up with cardiology # h/o depression PUD prophylaxis: protonix 40mg Goals of care: Full code, discussed for >20 minutes on 05/28/25 Plan discussed with patient Plan discussed with Dr. Monique Plan discussed with: Patient, Spouse My Orders Orders - AJX CHÁVEZ RESIDENT Procedure Category Date Status Time Covid19 Antigen Mary LAB 05/28/25 Logged Rapid Influenza A&B LAB 05/28/25 Logged 16:36 Echo 2d Mode Cardiac US 05/28/25 Logged DOP 16:36 Drug Screen LAB 05/28/25 Logged 16:36 Respiratory Culture INDIO 05/28/25 Logged W/ Gs 16:36 Lactic Acid W/ Reflex LAB 05/28/25 Logged Order 16:36 B-Type Natriuretic LAB 05/28/25 Logged Peptide 16:36 Ceftriaxone 1gm/50ml PHA 05/29/25 Logged (Rocephin) 09:00 Doxycycline PHA 05/28/25 Logged 100mg/100ml 22:00 Hepatic Panel LAB 05/28/25 Logged 16:36 Urinalysis LAB 05/28/25 Logged 16:36 Consistent DIET 05/28/25 Transmitted Carb(Ccho)Diabetes Dinner Albuterol Medneb PHA 05/28/25 Logged (Ventolin Medneb) 16:45 Ipratropium Medneb PHA 05/28/25 Transmitted (Atrovent Medneb) 16:45 Pantoprazole Tablet PHA 05/29/25 Transmitted (Protonix Tablet) 06:00 Pantoprazole Tablet PHA 05/28/25 Transmitted (Protonix Tablet) 16:45 Ibuprofen Tablet PHA 05/28/25 Transmitted (Motrin Tablet) 16:45 Vancomycin PHA 05/28/25 Transmitted 16:45 Blood Culture INDIO 05/28/25 Logged 16:36 Date of Service: May 28, 2025 Billing Provider: PHILOMENA MONIQUE MD Common Visit Codes: [id number] INP/OBS CARE (HIGH) Secondary Visit Codes: [id number] CARE PLAN 30 MINUTES JAX CHÁVEZ RESIDENT May 28, 2025 17:01 PHILOMENA MONIQUE MD Jun 02, 2025 20:35
[2025-05-28] MEDS: PANTOPRAZOLE 40 MG TAB PO ONE (17:22)
[2025-05-28] MEDS: SODIUM CHLORIDE 0.9% 1,000 ML IV ONE (17:28)
[2025-05-28] MEDS: VANCOMYCIN 1.5GM/250ML 250 ML IV ONE (17:28)
[2025-05-28 17:30] LABS: Alanine Aminotransferase 29.0 U/L (7-40); Albumin 4.1 g/dL (3.2-4.8); Alkaline Phosphatase 80.0 U/L (46-116); Bilirubin, Direct 0.1 mg/dL (<0.3); Bilirubin, Total 0.5 mg/dL (0.2-1.0); Total Protein 6.8 g/dL (5.7-8.2)
[2025-05-28] MEDS ORDERED: NITR0.4S29 SL (18:17)
[2025-05-28 18:35] LABS: COVID19 ANTIGEN SOFIA FIA NEGATIVE (NEGATIVE)
[2025-05-28] MEDS: ALBUTEROL SULF 2.5 MG/0.5ML(0.5%) NEB SOLN NEB PRN (20:21)
[2025-05-28] MEDS: IPRATROPIUM BROM 0.5 MG/2.5ML INH SOL NEB PRN (20:22)
[2025-05-28] MEDS: IBUPROFEN 400 MG TAB PO PRN (21:03)
[2025-05-28] MEDS: DOXYCYCLINE 100MG/100ML 100 ML IV SCH (21:44)
[2025-05-29] VITALS (16 sets, daily range): BP systolic 114–123; BP diastolic 46–71; PULSE 66–107; RESP 18–20; TEMP 97.4–99; O2SAT 94–100
[2025-05-29] MEDS: KETOROLAC TROMETH 30 MG/ML 1ML VIAL IV ONE (00:55)
[2025-05-29 04:19] LABS: Urine Protein, UAD Negative (Negative)
[2025-05-29 04:30] LABS: Amphetamine Screen, Urine Neg (NEGATIVE); Barbiturate Scree,Urine Neg (NEGATIVE); Benzodiazephine Screen, Urine Neg (NEGATIVE); Cocaine Screen, Urine Neg (NEGATIVE); Opiate Scree,Urine Neg (NEGATIVE); Phencyclidine Screen, Urine Neg (NEGATIVE)
[2025-05-29 04:34] LABS: Cannabinoid Screen, Urine Neg (NEGATIVE)
[2025-05-29] MEDS: PANTOPRAZOLE 40 MG TAB PO SCH (05:21)
[2025-05-29 09:14] LABS: Hematocrit 36.8 % (36.0-46.0); Hemoglobin 12.6 g/dL (12.2-16.2); Mean Corpuscular Hemoglobin 30.9 pg (28.0-32.0); Mean Corpuscular Volume 90.1 fL (80.0-100.0); Nucleated Red Blood Cells % 0.0 %
[2025-05-29 09:19] LABS: Chloride 106 mmol/L (98-107); Potassium 3.9 mmol/L (3.5-5.1); Sodium 140 mmol/L (136-145)
[2025-05-29 09:20] LABS: Anion Gap 9 (5-15); Calcium 8.9 mg/dL (8.7-10.4); Carbon Dioxide 25 mmol/L (20-31)
[2025-05-29 09:25] LABS: BUN/Creatinine Ratio 16.9 (10.0-20.0); Blood Urea Nitrogen 11 mg/dL (9-23)
[2025-05-29 09:27] LABS: Glucose 128 mg/dL (74-106)
--- NOTE | 2025-05-29 17:01 | DVHPNRES ---
Progress Note Date Seen: May 29, 2025 Resident Creating Document: JAX CHÁVEZ Medical Necessity Reason Pt with a Central, PICC or Fol: No Subjective Review of Systems This is a 55-year-old female with a past medical history of Prinzmetal angina, COPD, asthma, and mitral valve prolapse who presents to the emergency department with complaints of chest pain and shortness of breath. Symptoms began two days ago on last Wednesday, with worsening last night, prompting her decision to seek emergency care. She describes the chest pain as stabbing in nature, radiating to both her back and shoulders. Pain is described as 7/10 initially, now improved to 2/10. Pain worsens with movement, coughing, and palpation. Associated symptoms include fever, chills, mild cough, fatigue, slight dizziness, unintentional weight loss, and mild urinary frequency. She was previously evaluated by her PCP and prescribed a Z-Alexandre, which she completed on 05/26/25. COVID-19 and Influenza tests were negative. She felt improved by Wednesday, but subsequently developed recurrent fever along with left-sided chest pain, cough, and worsening shortness of breath. She denies hemoptysis, headache, nausea, or recent trauma. Patient was seen and examined at bedside. Overnight events were reviewed. The patient reports improvement in her shortness of breath but reported 7/10 pain to left shoulder and flank, worsened with deep breaths. O2 resumed at 2L NC with improvement in breathing. Patient started on room air. Past medical history: Prinzmetal angina, COPD, Ashtma, MVP, MR, Depression Past surgical history: Tubal ligation, Appendectomy Family history: Mother: Rheumatoid arthritis. Father: Dementia. Daughter: SLE. Paternal grandmother: Uterine cancer Social & Personal history: Smoke: Quit 10 years ago, before that more than 20 pack years. Denies alcohol drinking, recreational drugs. Allergies: None Patient seen and examined at bedside. Patient is alert and oriented to time, place person and responding to all questions. Constitutional: Yes: Fever, Chills Eyes: No Pain, No Vision change, No Conjunctivae inflammation, No Eyelid inflammation, No Other, No Redness ENT: No Ear pain, No Ear discharge, No Nose pain, No Nose discharge, No Nose congestion, No Mouth pain, No Mouth swelling, No Throat pain, No Throat swelling, No Other Cardiovascular: Chest Pain, No Palpitations, No Orthopnea, No Paroxysmal No Dyspnea, No Edema, No Lt Headedness, No Other Respiratory: Cough, Shortness of breath, No SOB with exertion, No Wheezing, No Hemoptysis, No Pleuritic Pain, No Sputum, No Other Gastrointestinal: No Nausea, No Vomiting, No Abdominal Pain, No Diarrhea, No Constipation, No Melena, No Hematochezia, No Other Genitourinary: No Dysuria, Frequency, No Incontinence, No Hematuria, No Retention, No Other Musculoskeletal: No other, No neck pain, shoulder pain, No arm pain, back pain, No hand pain, No leg pain, No foot pain Skin: No Rash, No Lesions, No Jaundice, No Bruising, No Other Objective vital signs Vital Sign Date Time Temp Pulse Resp B/P (MAP) Pulse Ox O2 Delivery O2 Flow Rate FiO2 05/29/25 16:46 99.0 89 20 114/46 (68) 96 99.0 05/29/25 13:31 Nasal Cannula 1.0 05/29/25 13:31 24 Total Intake and Output 05/28/25 05/28/25 05/29/25 15:00 23:00 07:00 Intake Total 550 ml Balance 550 ml medications Current Medications Medications Dose Ordered Sig/Jose Route Start Time Stop Time Status Last Admin Dose Admin Ceftriaxone Sodium 50 ml @ 100 mls/hr DAILY@09 IV 05/29/25 09:00 05/29/25 08:52 100 MLS/HR Doxycycline Hyclate 100 ml @ 50 mls/hr Q12H IV 05/28/25 22:00 05/29/25 10:57 50 MLS/HR Albuterol 2.5 mg Q6HPRN PRN NEB 05/28/25 16:45 05/29/25 13:31 2.5 MG Ipratropium [place] 0.5 mg Q6HPRN PRN NEB 05/28/25 16:45 05/29/25 13:31 0.5 MG Pantoprazole Sodium 40 mg DAILY@0600 PO 05/29/25 06:00 05/29/25 05:21 40 MG Ibuprofen 400 mg Q8HP PRN PO 05/28/25 16:45 05/29/25 13:21 400 MG Examination General Appearance: Cooperative. Well developed. Well nourished. NAD Head Exam: Normal inspection Neck Exam: Normal inspection. Non-tender. Normal alignment Pulmonary/Respiratory: Chest non-tender. Clear bilateral breath sounds, crackles, no wheezing. Cardiovascular/Chest: Regular rate and rhythm. No murmurs. No JVD. Peripheral Pulses: 2+ Radial (R). 2+ Radial (L). 2+ Pedal (R). 2+ Pedal (L) Abdominal Exam: Normal bowel sounds. Soft. normal abdomen, no visible veins, Nontender. No hepatospenomegaly. No masses Ankle Exam: Negative ankle edema Lower extremities: lower extremity 1+ pitting edema Neuro/Mental Status: A&O x4. Coherent. Thoughts/Psych: Normal thought pattern. Appropriate mood and affect. Good judgement and insight Skin Exam: Normal inspection. Normal color. Warm. Dry laboratory and microbiology Laboratory Tests 05/29/25 08:56 Test 05/29/25 08:56 Range/Units Serum Glucose 128 H 74-106 mg/dL Labs and/or images reviewed: Labs reviewed by me, Image(s) reviewed by me Problem List/Assessment/Plan Problem List/Assessment/Plan # Community acquired pneumonia # pneumonia likely d/t gram +/- bacteria # h/o COPD # h/o Asthma - Chest X-ray shows Cardiomegaly with increased bilateral interstitial prominence and trace bilateral pleural effusions. - IV antibiotic Ceftriaxone and Doxycycline - Albuterol 2.5 mg Q6h PRN - Ipratropium 0.5 mg Q6h PRN - Ibuprofen 400 mg q8h prn - NS - Tylenol 650 mg # Prinzmetal angina # Mitral valve prolapse # Mitral regurgitation - EKG: Sinus tachycardia. Ventricular trigeminy. Low voltage, precordial leads. - follow-up with cardiology # h/o depression PUD prophylaxis: protonix 40mg Goals of care: Full code, discussed for >20 minutes on 05/29/25 Plan discussed with patient Plan discussed with Dr. Monique Plan discussed with: Patient My Orders My Orders Orders - JAX CHÁVEZ Procedure Category Date Status Time Complete Blood Count LAB 05/30/25 Verified 04:00 Basic Metabolic Panel LAB 05/30/25 Verified 04:00 Date of Service: May 29, 2025 Billing Provider: PHILOMENA MONIQUE MD Common Visit Codes: [id number] INP/OBS CARE(HIGH) JAX CHÁVEZ RESIDENT May 29, 2025 17:01 PHILOMENA MONIQUE MD Jun 02, 2025 20:36
[2025-05-29] MEDS: ALBUTEROL SULF 2.5 MG/0.5ML(0.5%) NEB SOLN NEB SCH (22:28)
[2025-05-29] MEDS: IPRATROPIUM BROM 0.5 MG/2.5ML INH SOL NEB SCH (22:28)
[2025-05-30] VITALS (17 sets, daily range): BP systolic 100–130; BP diastolic 43–66; PULSE 72–99; RESP 16–78; TEMP 98.1–99; O2SAT 91–100
[2025-05-30 06:26] LABS: Hemoglobin 11.8 g/dL (12.2-16.2); Nucleated Red Blood Cells % 0.0 %
[2025-05-30 06:28] LABS: Hematocrit 32.4 % (36.0-46.0); Mean Corpuscular Hemoglobin 34.3 pg (28.0-32.0); Mean Corpuscular Volume 94.5 fL (80.0-100.0)
[2025-05-30 06:35] LABS: Anion Gap 14 (5-15); Carbon Dioxide 22 mmol/L (20-31); Chloride 106 mmol/L (98-107); Potassium 3.7 mmol/L (3.5-5.1); Sodium 142 mmol/L (136-145)
[2025-05-30 06:36] LABS: Calcium 9.1 mg/dL (8.7-10.4)
[2025-05-30 06:41] LABS: BUN/Creatinine Ratio 13.0 (10.0-20.0); Glucose 98 mg/dL (74-106)
[2025-05-30 06:43] LABS: Blood Urea Nitrogen 7 mg/dL (9-23)
--- NOTE | 2025-05-30 10:25 | DVHSR ---
APPROVED REPORT EXAM: Two-dimensional and M-mode echocardiogram with Doppler and color Doppler. Blood Pressure: 120/54 mmHg INDICATION SOB RISK FACTORS Height: 67, Weight: 207 DIMENSIONS LVDd5.1 (3.8-5.7cm)LA (2D)4.1 (1.9-4.0cm)Aortic Root3.1 (2.0-3.7cm) LVDs3.2 (2.5-4.0cm)LA (MM) (1.9-4.0cm)Aortic Cusp Exc1.6 (1.5-2.0cm) EF (%) 66.0 (55-70%)Rt. Atrium3.8 (1.9-4.0cm)Asc. Aorta cm IVSd1.0 (0.7-1.1cm)RV (D) (1.8-2.4cm) PWd1.3 (0.7-1.1cm) Mitral Valve MitralMitral Stenosis E wave0.89m/sMV Mean GR.mmHg A wave0.88m/sMV Peak GR.78mmHg E/A ratio1.02D MVAcm2 DECEL [id number] 1/2 [id number] IVRTmsDop MVA2.98cm2 Aortic Valve Aortic ValveAortic Stenosis V11.33m/Eva Mean GR.6mmHg V21.92m/Eva Peak GR.15mmHg LVOT Diameter2.2 (1.8-2.4cm)Doppler AVA2.63cm2 Pulmonic Valve V21.14m/s Tricuspid Valve TR Velocity2.32m/s [id number] Conclusion NORMAL LV EF AND IS 65% NORMAL VALVES NORMAL RV FUNCTION NO EFFUSION
[2025-05-30] MEDS ORDERED: guaiFENesin-DM 100/10mg/5ml SYR PO PRN (15:00)
[2025-05-30] MEDS: LOPERAMIDE HCL 2 MG CAP/TAB PO ONE (16:49)
[2025-05-30] MEDS: SODIUM CHL 3% HYPERTONIC 500 ML BAG IN ONE (17:30)
--- NOTE | 2025-05-30 19:06 | DVHPNRES ---
Progress Note Date Seen: May 30, 2025 Resident Creating Document: JAX CHÁVEZ Medical Necessity Reason Pt with a Central, PICC or Fol: No Subjective Review of Systems This is a 55-year-old female with a past medical history of Prinzmetal angina, COPD, asthma, and mitral valve prolapse who presents to the emergency department with complaints of chest pain and shortness of breath. Symptoms began two days ago on last Wednesday, with worsening last night, prompting her decision to seek emergency care. She describes the chest pain as stabbing in nature, radiating to both her back and shoulders. Pain is described as 7/10 initially, now improved to 2/10. Pain worsens with movement, coughing, and palpation. Associated symptoms include fever, chills, mild cough, fatigue, slight dizziness, unintentional weight loss, and mild urinary frequency. She was previously evaluated by her PCP and prescribed a Z-Alexandre, which she completed on 05/26/25. COVID-19 and Influenza tests were negative. She felt improved by Wednesday, but subsequently developed recurrent fever along with left-sided chest pain, cough, and worsening shortness of breath. She denies hemoptysis, headache, nausea, or recent trauma. Patient was seen and examined at bedside. Overnight events were reviewed. Patient was noted to have a persistent cough and shortness of breaths. Sputum sample was collected. Objective vital signs Vital Sign Date Time Temp Pulse Resp B/P (MAP) Pulse Ox O2 Delivery O2 Flow Rate FiO2 05/30/25 18:37 78 20 99 05/30/25 18:31 Nasal Cannula 2.0 05/30/25 18:31 28 05/30/25 17:00 98.2 116/60 (78) 98.2 Total Intake and Output 05/29/25 05/29/25 05/30/25 15:00 23:00 07:00 Intake Total 360 ml 1100 ml 650 ml Balance 360 ml 1100 ml 650 ml medications Current Medications Medications Dose Ordered Sig/Jose Route Start Time Stop Time Status Last Admin Dose Admin Ceftriaxone Sodium 50 ml @ 100 mls/hr DAILY@09 IV 05/29/25 09:00 05/30/25 12:16 100 MLS/HR Doxycycline Hyclate 100 ml @ 50 mls/hr Q12H IV 05/28/25 22:00 05/30/25 13:22 50 MLS/HR Albuterol 2.5 mg Q6HPRN PRN NEB 05/28/25 16:45 05/29/25 18:51 2.5 MG Ipratropium [place] 0.5 mg Q6HPRN PRN NEB 05/28/25 16:45 05/29/25 18:51 0.5 MG Pantoprazole Sodium 40 mg DAILY@0600 PO 05/29/25 06:00 05/30/25 06:15 40 MG Ibuprofen 400 mg Q8HP PRN PO 05/28/25 16:45 05/30/25 11:15 400 MG Albuterol 2.5 mg Q4HWA NEB 05/29/25 22:00 05/30/25 18:31 2.5 MG Ipratropium [place] 0.5 mg Q4HWA NEB 05/29/25 22:00 05/30/25 18:30 0.5 MG Saccharomyces Boulardii 250 mg DAILY PO 05/31/25 10:00 Guaifenesin/ Dextromethorphan 10 ml Q4HP PRN PO 05/30/25 15:00 Examination General Appearance: Cooperative. Well developed. Well nourished. NAD Head Exam: Normal inspection Neck Exam: Normal inspection. Non-tender. Normal alignment Pulmonary/Respiratory: Chest non-tender. Clear bilateral breath sounds, crackles, no wheezing. diminished breath sounds Cardiovascular/Chest: Regular rate and rhythm. No murmurs. No JVD. Peripheral Pulses: 2+ Radial (R). 2+ Radial (L). 2+ Pedal (R). 2+ Pedal (L) Abdominal Exam: Normal bowel sounds. Soft. normal abdomen, no visible veins, Nontender. No hepatospenomegaly. No masses Ankle Exam: Negative ankle edema Lower extremities: lower extremity 1+ pitting edema Neuro/Mental Status: A&O x4. Coherent. Thoughts/Psych: Normal thought pattern. Appropriate mood and affect. Good judgement and insight Skin Exam: Normal inspection. Normal color. Warm. Dry. laboratory and microbiology Laboratory Tests 05/30/25 05:41 Test 05/30/25 05:41 Range/Units Serum Glucose 98 74-106 mg/dL Microbiology Date/Time Source Procedure Growth Status 05/28/25 17:51 Blood Blood Culture - Preliminary NO GROWTH AFTER 48 HOURS OF INCUBATION. Resulted Labs and/or images reviewed: Labs reviewed by me, Image(s) reviewed by me Problem List/Assessment/Plan Problem List/Assessment/Plan # pneumonia likely d/t gram +/- bacteria # Acute hypoxic respiratory failure due to above # h/o COPD # h/o Asthma - Chest X-ray shows Cardiomegaly with increased bilateral interstitial prominence and trace bilateral pleural effusions. - IV antibiotic Ceftriaxone and Doxycycline - Albuterol 2.5 mg Q6h PRN - Ipratropium 0.5 mg Q6h PRN - Ibuprofen 400 mg q8h prn - NS - Tylenol 650 mg - Sputum culture pending # Prinzmetal angina # Mitral valve prolapse # Mitral regurgitation - EKG: Sinus tachycardia. Ventricular trigeminy. Low voltage, precordial leads. - Ecocardiogram: NORMAL LV EF AND IS 65%. NORMAL VALVES. NORMAL RV FUNCTION. NO EFFUSION. - follow-up with cardiology # h/o depression PUD prophylaxis: protonix 40mg Goals of care: Full code, discussed for >20 minutes on 05/30/25 Plan discussed with patient Plan discussed with Dr. Monique Plan discussed with: Patient Date of Service: May 30, 2025 Billing Provider: PHILOMENA MONIQUE MD Common Visit Codes: [id number] INP/OBS CARE(HIGH) JAX CHÁVEZ RESIDENT May 30, 2025 19:06 PHILOMENA MONIQUE MD Jun 02, 2025 20:36
--- NOTE | 2025-05-30 22:16 | DVH ---
CHEST RADIOGRAPH Indication: SOB Technique: 1 view Comparison: XY CHEST PORTABLE on DOS: 05/28/25 FINDINGS: Lines and Tubes: None. Lungs/Pleura: Low lung volumes with vascular crowding and [id number] basilar opacities. No new consolidation, large pleural effusion or pneumothorax. Cardiomediastinum: Unchanged. Other: Unchanged osseous structures. IMPRESSION: 1. No significant change from 2 days prior.
[2025-05-31] VITALS (11 sets, daily range): BP systolic 110–118; BP diastolic 56–68; PULSE 75–92; RESP 16–21; TEMP 36.3; O2SAT 94–100
[2025-05-31 05:56] LABS: Hemoglobin 11.5 g/dL (12.2-16.2)
[2025-05-31 05:59] LABS: Hematocrit 31.2 % (36.0-46.0); Mean Corpuscular Hemoglobin 35.7 pg (28.0-32.0); Mean Corpuscular Volume 96.9 fL (80.0-100.0); Nucleated Red Blood Cells % 0.1 %
[2025-05-31 06:02] LABS: Anion Gap 11 (5-15); Calcium 9.1 mg/dL (8.7-10.4); Carbon Dioxide 24 mmol/L (20-31); Potassium 4.1 mmol/L (3.5-5.1); Sodium 143 mmol/L (136-145)
[2025-05-31 06:08] LABS: BUN/Creatinine Ratio 10.0 (10.0-20.0); Glucose 90 mg/dL (74-106)
[2025-05-31 06:14] LABS: Blood Urea Nitrogen 7 mg/dL (9-23); Chloride 108 mmol/L (98-107)
[2025-05-31] MEDS: FUROSEMIDE 40 MG/4 ML VIAL IV ONE (08:15)
[2025-05-31 09:48] LABS: Base Excess -2.2 mmol/L (-2.0-3.0)
[2025-05-31] MEDS ORDERED: AUG875T PO (10:53)
[2025-05-31] MEDS ORDERED: DOXY1CAP57 PO (10:53)
[2025-05-31] MEDS ORDERED: DEXT1SYP9 PO (10:53)
[2025-05-31] MEDS ORDERED: SACC1CAP3 PO (10:53)
[2025-05-31] MEDS: FLORASTOR (S. BOULARDII) 250 MG CAP PO SCH (11:59)
--- NOTE | 2025-05-31 23:37 | DVHDSRES ---
Discharge Summary Date of Admission Resident Creating Document: KARLO REDDING RESIDENT May 28, 2025 at 16:25 Date of Discharge: May 31, 2025 Admitting Diagnosis # Community acquired pneumonia # pneumonia likely d/t gram +/- bacteria # h/o COPD # h/o Asthma # Prinzmetal angina # Mitral valve prolapse # Mitral regurgitation # h/o depression Wounds: none Labs/Diagnostic Data: Laboratory Results Test 05/31/25 09:32 05/31/25 05:20 05/29/25 08:56 05/29/25 01:35 Blood Gas Specimen Type Arterial Blood Gas Sample Site Right brachial Blood Gas Patient Temperature 37.0 Arterial Blood Date Drawn [id number] Arterial Blood pH 7.443 (7.350-7.450) Arterial Blood Partial Pressure CO2 31.3 mmHg (32.0-45.0) Arterial Blood Partial Pressure O2 67.3 mmHg (83.0-108.0) Arterial Blood HCO3 20.9 mmol/L (21.0-28.0) Arterial Blood Oxygen Saturation 92.5 % (94.0-98.0) Arterial Blood Base Excess -2.2 mmol/L (-2.0-3.0) Arterial Blood Oxyhemoglobin 91.9 % (94.0-98.0) Arterial Blood Carboxyhemoglobin 0.4 % (0.5-1.5) Arterial Blood Methemoglobin 0.3 % (0.0-1.5) Federico Test N/a Blood Gas Total Hemoglobin 13.10 g/dL (12.0-16.0) Blood Gas Liter Flow 0.00 Blood Gas Modality Room air FiO2 % 21.0 White Blood Count 5.5 10^3/uL (4.4-10.8) Red Blood Count 3.22 10^6/uL (4.0-5.20) Hemoglobin 11.5 g/dL (12.2-16.2) Hematocrit 31.2 % (36.0-46.0) Mean Corpuscular Volume 96.9 fL (80.0-100.0) Mean Corpuscular Hemoglobin 35.7 pg (28.0-32.0) Mean Corpuscular Hemoglobin Concent 36.8 g/dL (32.0-36.0) Red Cell Distribution Width 13.0 % (11.8-14.3) Platelet Count 390 10^3/uL (140-450) Mean Platelet Volume 7.0 fL (6.9-10.8) Neutrophils (%) (Auto) 54.7 % (37.0-80.0) Lymphocytes (%) (Auto) 30.7 % (10.0-50.0) Monocytes (%) (Auto) 9.9 % (0.0-12.0) Eosinophils (%) (Auto) 3.7 % (0.0-7.0) Basophils (%) (Auto) 1.0 % (0.0-2.0) Neutrophils # (Auto) 3.0 10 ^3/uL (1.6-8.6) Lymphocytes # (Auto) 1.7 10 ^3/uL (0.4-5.4) Monocytes # (Auto) 0.5 10 ^3/uL (0-1.3) Eosinophils # (Auto) 0.2 10 ^3/uL (0-0.8) Basophils # (Auto) 0.1 10 ^3/uL (0-0.2) Nucleated Red Blood Cells 0.1 % Sodium Level 143 mmol/L (136-145) Potassium Level 4.1 mmol/L (3.5-5.1) Chloride Level 108 mmol/L (98-107) Carbon Dioxide Level 24 mmol/L (20-31) Anion Gap 11 (5-15) Blood Urea Nitrogen 7 mg/dL (9-23) Creatinine 0.70 mg/dL (0.550-1.02) Glomerular Filtration Rate Calc 103 mL/min (>90) BUN/Creatinine Ratio 10.0 (10.0-20.0) Serum Glucose 90 mg/dL (74-106) Calcium Level 9.1 mg/dL (8.7-10.4) Hemoglobin A1c 5.8 % A1C (<5.7) Urine Color Colorless (Yellow) Urine Clarity Clear (Clear) Urine pH 5.5 (5.0-9.0) Urine Specific Stanton 1.003 (1.001-1.035) Urine Protein Negative (Negative) Urine Ketones Negative (Negative) Urine Blood Negative /uL (Negative) Urine Nitrite Negative (Negative) Urine Bilirubin Negative (Negative) Urine Urobilinogen Normal mg/dL (Negative) Urine Leukocyte Esterase Negative /uL (Negative) Urine RBC None seen /hpf (0 - 4) Urine Microscopic WBC 1 /HPF (0-5) Urine Squamous Epithelial Cells Few /hpf (<5) Urine Bacteria Few /hpf (None Seen) Urine Glucose Normal mg/dL (Normal) Urine Opiates Screen Neg (NEGATIVE) Urine Fentanyl Screen Neg (NEGATIVE) Urine Barbiturates Screen Neg (NEGATIVE) Urine Phencyclidine Screen Neg (NEGATIVE) Urine Amphetamines Screen Neg (NEGATIVE) Urine Benzodiazepines Screen Neg (NEGATIVE) Urine Cocaine Screen Neg (NEGATIVE) Urine Cannabinoids Screen Neg (NEGATIVE) Test 05/28/25 17:51 05/28/25 17:19 05/28/25 13:46 05/28/25 12:55 Lactic Acid Level 0.6 mmol/L (0.4-2.0) Influenza Type A Antigen Negative (Negative) Influenza Type B Antigen Negative (Negative) SARS-CoV-2 Antigen (Rapid) Negative (NEGATIVE) Troponin I High Sensitivity < 3 ng/L (</=34) Total Bilirubin 0.5 mg/dL (0.2-1.0) Direct Bilirubin 0.1 mg/dL (<0.3) Aspartate Amino Transferase (AST) 26 U/L (13-40) Alanine Aminotransferase (ALT) 29 U/L (7-40) Alkaline Phosphatase 80 U/L (46-116) B-Type Natriuretic Peptide 33.54 pg/mL (0-100) Total Protein 6.8 g/dL (5.7-8.2) Albumin 4.1 g/dL (3.2-4.8) Other Laboratory Tests 05/31/25 05:20 Brief Hx & Hospital Course: Patient 55-year-old female with a past medical history of Prinzmetal angina, COPD, asthma presented to the ER with a chief complaint worsening shortness of breath associated with the left-sided chest pain which was pleuritic in nature along with cough associated with sputum, fever and chills . Chest x-ray showed left lower lobe opacity which was correlating with the features of left-sided pleuritic chest pain likely due to pneumonia with the associated physical finding of left-sided crackles. Patient was started on IV antibiotics with ceftriaxone and doxycycline. Initially was on oxygen support with nasal cannula which was gradually removed and the patient is saturating well on room air. ABG was repeated after a 6 minute walk test with the PO2 more than 60. Patient was discharged home with the p.o. antibiotics Augmentin and doxycycline for 5 days and advised to continue doing this incentive spirometry. Discharge plan Medications: Doxycycline 100 mg b.i.d. for 5 days, Augmentin 875 mg b.i.d. for 5 days Follow up with the PCP in 1 week Operations or Procedures None Condition at Discharge: Good Final Diagnosis/Problems List Pneumonia likely due to Gram +/-bacteria History of COPD Prinzmetal angina History of depression Discharge Disposition: Home Discharge Instruct/Medications Diet: Regular Activity: No Restrictions, As Tolerated Follow Up/Referral: F/up with the PCP in one week F/up in the fl clinic in one week Medications: as per OCT Scheduled Amoxicillin & Pot Clavulanate (Augmentin Tablet), 875 MG PO BID Aspirin (Aspir-81), 81 TAB PO DAILY, (Reported) Doxycycline Monohydrate (Doxycycline Monohydrate), 100 MG PO BID Metoprolol Tartrate (Metoprolol Tartrate), 1 TAB PO BID, (Reported) Yeast (S. Boulardii)(S. Cerevi (Probiotic), 250 MG PO DAILY Scheduled PRN Belladonna Alkaloids-Phenobarb (), 1 TAB OR Q8HPRN PRN Dextromethorphan-Guaifenesin (Robitussin-Dm), 10 ML PO Q6HP PRN Docusate Sodium (Colace), 1 CAP PO BIDP PRN Ibuprofen (Ibuprofen), 1 TAB PO TID PRN Miscellaneous Medications Albuterol Sulfate (Albuterol Sulfate Hfa), 108 MCG IN, (Reported) Bupropion Hcl (Wellbutrin Sr), 150 MG PO, (Reported) Curcuma Longa (Turmeric) Extra (Turmeric), 500 MG OR, (Reported) Fluticasone-Salmeterol (Wixela Inhub 500-50 Mcg/Dose), 1 AER IN, (Reported) Fluticasone-Salmeterol (Wixela Inhub 500-50 Mcg/Dose), 1 AER IN, (Reported) Magnesium Oxide (Magnesium Oxide), 400 MG OR, (Reported) Montelukast Sodium (Montelukast Sodium), 10 MG OR, (Reported) Nitroglycerin (Nitrostat), 0.4 MG SL, (Reported) [place]-3 Fatty Acids (Fish Oil 500 mg), 1 CAP PO, (Reported) Omeprazole Magnesium (Omeprazole), 20 MG PO, (Reported) Probiotic Product (Probiotic), 1 OR, (Reported) Progesterone Micronized (Progesterone), 200 MG PO, (Reported) Silybum Marianum (Milk Thistle), 500 MG PO, (Reported) Discontinued Medications Ciprofloxacin Hcl (Cipro), 1 TAB PO BID Ibuprofen (Ibuprofen), 1 TAB PO TID Discharge Statement: "Patient was advised to return to the ER or call 911 if any headaches, dizziness, shortness of breath, chest pain, abdominal pain, bleeding, fevers, or worsening of medical condition. Patient was counseled about treatment plan, medications, possible side effects, patientverbalized understanding. All questions were answered to the best of my ability. This discharge took greater then 30 minutes in planning, reviewing documentation, counseling the patient, and discussing with other team members." ASSESSMENT ASSESSMENT Assessment Pneumonia Date of Service: May 31, 2025 Billing Provider: PHILOMENA JONES MD Common Visit Codes: 84695-SDK/OBS DISCH DAY >30min KARLO REDDING RESIDENT May 31, 2025 23:37 PHILOMENA JONES MD Jun 02, 2025 20:37
== END 2025-05-31 13:15 | disposition home or self-care (01) | DRG 177 ==
LOC: ER 12:09 → OVERFLOW 16:25 → EEVIPCON 16:25 → ER 16:31 → EAST 18:00
PROVIDERS: ADMIT Internal Medicine Geriatric Medicine; ATTEND Internal Medicine Geriatric Medicine
DX: J15.69 Pneumonia due to other Gram-negative bacteria (principal); J96.01 Acute respiratory failure with hypoxia; I20.1 Angina pectoris with documented spasm; J44.0 Chronic obstructive pulmonary disease with (acute) lower respiratory infection; Z20.822 Contact with and (suspected) exposure to COVID-19; J15.9 Unspecified bacterial pneumonia; I34.1 Nonrheumatic mitral (valve) prolapse; I34.0 Nonrheumatic mitral (valve) insufficiency; Z79.899 Other long term (current) drug therapy
CPT/HCPCS: 36415; 36600; 71045; 80048; 80076; 80307; 81001; 82805; 83036; 83605; 83880; 84484; 85025; 87040; 87070; 87205; 87426; 87804; 93005; 93306; 94640; 96365; 96375; G0378; J1885

== ENCOUNTER 2025-06-08 16:06 | Inpatient (IN) | payer BC ==
[~2025-06-08] VITALS: Ht 170.2 cm; Wt 106.6 kg
[~2025-06-08 16:06] MED LIST changes: +AUG875T PO; -CIPR-173 PO; +DEXT1SYP9 PO; +DOXY1CAP57 PO; +NITR0.4S29 SL
--- NOTE | 2025-06-08 16:24 | ED.PDOC ---
Musculoskeletal HPI Comments A 55 YEAR OLD FEMALE PRESENTS TO THE ED WITH COMPLAINT OF LEFT LOWER LEG PAIN. PATIENT STATES SHE HAS BEEN EXPERIENCING LEFT LOWER LEG PAIN AND MILD SWELLING THAT RADIATES TO HER LEFT THIGH REGION FOR THE PAST 3 WEEKS. PATIENT REPORTS SHE WAS RECENTLY DIAGNOSED WITH A DVT IN HER LEFT LOWER LEG RECENTLY, PROMPTING HER TO COME TO THE ED TODAY. PATIENT DENIES FEVER, CHILLS, SHORTNESS OF BREATH, CHEST PAIN, ABDOMINAL PAIN, NAUSEA, VOMITING, HEADACHE, OR OTHER COMPLAINTS. NO OTHER SYMPTOMS OR MODIFYING FACTORS AT THIS TIME. PATIENT IS ALERT, ORIENTED X 4, AND HAS STEADY GAIT. Chief Complaint: Lower Extremity Time Seen by MD: 16:12 Primary Care Provider: UNKNOWN Reviewed Notes: Nurses Notes, Medications, Allergies Allergies: Coded Allergies: No Known Drug Allergy (Verified Allergy, Unknown, 12/01/22) Home Meds Active Scripts Doxycycline Monohydrate (Doxycycline Monohydrate) 100 Mg Cap, 100 MG PO BID for 5 Days, #10 CAP 0 Refills Prov:KARLO REDDING 05/31/25 Amoxicillin & Pot Clavulanate (AUGMENTIN TABLET) 875 Mg Tb, 875 MG PO BID for 5 Days, #10 TAB 0 Refills Prov:KARLO REDDING 05/31/25 Dextromethorphan-Guaifenesin (Robitussin-Dm) 10 Ml Sr, 10 ML PO Q6HP PRN for 30 Days, #2 SYP Prov:KARLO REDDING 05/31/25 Yeast (S. Boulardii)(S. Cerevi (Probiotic) 250 Mg Cap, 250 MG PO DAILY for 10 Days, #10 CAP Prov:KARLO REDDING 05/31/25 Docusate Sodium (Colace) 100 Mg Cap, 1 CAP PO BIDP PRN, #20 CAP Prov:MELLY CALLE PAC 01/06/25 Belladonna Alkaloids-Phenobarb () Tab, 1 TAB OR Q8HPRN PRN, #15 TAB Prov:MELLY CALLE PAC 01/06/25 Ibuprofen (Ibuprofen) 800 Mg Tab, 1 TAB PO TID PRN, #30 TAB 0 Refills Prov:IMELDA AGUIRRE 02/09/22 Reported Medications Nitroglycerin (Nitrostat) 0.4 Mg Sub, 0.4 MG SL, INJ 05/28/25 Fluticasone-Salmeterol (Wixela Inhub 500-50 Mcg/Dose) 1 Aer Aer, 1 AER IN, AER 05/28/25 Probiotic Product (PROBIOTIC) Tab, 1 OR, TAB 01/12/25 Aspirin (Aspir-81) 81 Mg Tab, 81 TAB PO DAILY, #30 TAB 5 Refills 01/12/25 Silybum Marianum (Milk Thistle) 500 Mg Cap, 500 MG PO, CAP 01/12/25 [place]-3 Fatty Acids (Fish Oil 500 mg) 1 Cap Cap, 1 CAP PO, CAP 01/12/25 Curcuma Longa (Turmeric) Extra (TURMERIC) 500 Mg Cap, 500 MG OR, CAP 01/12/25 Magnesium Oxide (MAGNESIUM OXIDE) 400 Mg Tab, 400 MG OR, TAB 01/12/25 Progesterone Micronized (PROGESTERONE) 200 Mg Cap, 200 MG PO, CAP 01/12/25 Fluticasone-Salmeterol (Wixela Inhub 500-50 Mcg/Dose) 1 Aer Aer, 1 AER IN, AER 01/12/25 Metoprolol Tartrate (Metoprolol Tartrate) 25 Mg Tab, 1 TAB PO BID, #180 TAB 1 Refill 01/12/25 Omeprazole Magnesium (Omeprazole) 20 Mg Tab, 20 MG PO, TAB 01/12/25 Montelukast Sodium (MONTELUKAST SODIUM) 10 Mg Tab, 10 MG OR, TAB 01/12/25 Bupropion Hcl (Wellbutrin Sr) 150 Mg Tab, 150 MG PO, TAB 01/12/25 Albuterol Sulfate (Albuterol Sulfate Hfa) 108 Mcg/Act Aer, 108 MCG IN, AER 01/12/25 Information Source: Patient Mode of Arrival: Ambulatory Location: Left Extremity Location: Leg (LOWER LEG), Thigh Timing: Days Prehospital treatment: None Severity: Moderate Able to Move Extremity: Yes Bear Weight: Fully Pain: Moderate Hand Dominance: Right Mechanism: No Trauma, Spontaneous Circumstances: Spontaneous Onset of Symptoms: Spontaneous Symptoms: Swelling, Pain, Erythema DVT Risk Factors: NONE Last Tetanus: UTD Associated signs and symptoms: Thigh pain, Leg pain, None Past Medical History PAST MEDICAL HISTORY: Angina, Asthma, COPD Surgical History: Denies all surgeries CUSTOMS VERIFIER History: No Pertinent CUSTOMS VERIFIER History Family History Family History: Reviewed,noncontributory to illness, No family hx of Cancer, No family hx of DM, No family hx of Heart devante, No family hx of HTN, No family hx ofKidney devante, No family hx of Liver devante, No family hx of Lung devante, No family hx of Stroke Social History Smoker: Non-Smoker Alcohol: Denies ETOH Use Drugs: Denies Drug Use Lives In: Home Constitutional: denies: chills, diaphoresis, fatigue, fever, malaise, sweats, weakness, others EENTM: denies: blurred vision, double vision, ear bleeding, ear discharge, ear drainage, ear pain, ear ringing, eye pain, eye redness, hearing loss, mouth pain, mouth swelling, nasal discharge, nose bleeding, nose congestion, nose pain, photophobia, tearing, throat pain, throat swelling, voice changes, others Respiratory: denies: cough, hemoptysis, orthopnea, SOB at rest, shortness of breath, SOB with excertion, stridor, wheezing, others Cardiovascular: denies: chest pain, dizzy spells, diaphoresis, Dyspnea on exertion, edema, irregular heart beat, left arm pain, lightheadedness, palpitations, PND, syncope, others Gastrointestinal: denies: abdomen distended, abdominal pain, blood streaked bowels, constipated, diarrhea, dysphagia, difficulty swallowing, hematemesis, melena, nausea, poor appetite, poor fluid intake, rectal bleeding, rectal pain, vomiting, others Genitourinary: denies: abnormal vagina bleeding, burning, dyspareunia, dysuria, flank pain, frequency, hematuria, incontinence, pain, , vagina discharge, urgency, others Neurological: denies: dizziness, fainting, headache, left sided numbness, left sided weakness, numbness, paresthesia, pre-existing deficit, right sided num bness, right sided weakness, seizure, speech problems, tingling, tremors, weakness, others Musculoskeletal: reports: muscle pain, others (LEFT LOWER LEG PAIN AND SWELLING); denies: back pain, gout, joint pain, joint swelling, muscle stiffness, neck pain Integumetry: denies: bruises, change in color, change in hair/nails, dryness, laceration, lesions, lumps, rash, wounds, others Allergic/Immunocompromised: denies: Difficulty Healing, Frequent Infections, Hives, Itching, others Hematologic/Lymphatic: denies: anemia, blood clots, easy bleeding, easy bruising, swollen glands, others Endocrine: denies: excessive hunger, excessive sweating, excessive thirst, excessive urination, flushing, intolerance to cold, intolerance to heat, unexplained weight gain, unexplained weight loss, others Psychiatric: denies: anxiety, bipolar disorder, depression, hopeless, panic disorder, schizophrenia, sleepless, suicidal, others All Other Systems: Reviewed and Negative Physical Exam General Appearance: Mild Distress, Obese HEENT: Normal ENT Inspection, PERRL/EOMI, Pharynx Normal, TMs Normal Neck: Full Range of Motion, Non-Tender, Normal, Normal Inspection Respiratory: Chest Non-Tender, Lungs Clear, No Accessory Muscle Use, No Respiratory Distress, Normal Breath Sounds Cardiovascular: No Edema, No JVD, No Murmur, No Gallop, Normal Peripheral Pulses, Regular Rate/Rhythm Breast Exam: Deferred Gastrointestinal: No Organomegaly, Non Tender, No Pulsatile Mass, Normal Bowel Sounds, Soft Genitalia: Deferred Pelvic: Deferred Rectal: Deferred Extremities: Calf tenderness, Decreased range of motion, Inflammation, Leg edema, Normal capillary refill, No pedal edema, Swelling, Tender (SWELLING OF LEFT LOWER LEG EXTENDING TO LEFT UPPER INNER THIGH NOTED WITH MILD REDNESS. +DVT. 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 ) Peripheral Pulses: 2+ carotid (R), 2+ carotid (L), 2+ dorsalis pedis (R), 2+ dorsalis pedis (L) Lymphatic: No Adenopathy Was a procedure done? Was a procedure done?: No Differential Diagnosis EXT Differential Diagnosis: Cellulitis, Deep Vein Thrombosis, Sprain, Strain X-Ray, Labs, Meds, VS Vital Signs Date Time Temp Pulse Resp B/P (MAP) Pulse Ox O2 Delivery O2 Flow Rate FiO2 06/08/25 16:10 99.7 87 19 177/90 95 99.7 Lab Test 06/08/25 16:33 Range/Units White Blood Count 13.4 H 4.4-10.8 10^3/uL Red Blood Count 4.43 4.0-5.20 10^6/uL Hemoglobin 13.2 12.2-16.2 g/dL Hematocrit 39.8 36.0-46.0 % Mean Corpuscular Volume 89.7 80.0-100.0 fL Mean Corpuscular Hemoglobin 29.8 28.0-32.0 pg Mean Corpuscular Hemoglobin Concent 33.3 32.0-36.0 g/dL Red Cell Distribution Width 13.5 11.8-14.3 % Platelet Count 456 H 140-450 10^3/uL Mean Platelet Volume 7.0 6.9-10.8 fL Neutrophils (%) (Auto) 79.0 37.0-80.0 % Lymphocytes (%) (Auto) 14.1 10.0-50.0 % Monocytes (%) (Auto) 6.0 0.0-12.0 % Eosinophils (%) (Auto) 0.1 0.0-7.0 % Basophils (%) (Auto) 0.8 0.0-2.0 % Neutrophils # (Auto) 10.6 H 1.6-8.6 10 ^3/uL Lymphocytes # (Auto) 1.9 0.4-5.4 10 ^3/uL Monocytes # (Auto) 0.8 0-1.3 10 ^3/uL Eosinophils # (Auto) 0 0-0.8 10 ^3/uL Basophils # (Auto) 0.1 0-0.2 10 ^3/uL Nucleated Red Blood Cells 0.0 % Prothrombin Time 10.9 9.3-11.8 sec Prothrombin Time INR 1.03 0.9-1.15 Sodium Level 140 136-145 mmol/L Potassium Level 4.0 3.5-5.1 mmol/L Chloride Level 104 98-107 mmol/L Carbon Dioxide Level 26 20-31 mmol/L Anion Gap 10 5-15 Blood Urea Nitrogen 11 9-23 mg/dL Creatinine 0.83 0.550-1.02 mg/dL Glomerular Filtration Rate Calc 84 >90 mL/min BUN/Creatinine Ratio 13.3 10.0-20.0 Serum Glucose 108 H 74-106 mg/dL Calcium Level 9.1 8.7-10.4 mg/dL LEFT LOWER EXTREMITY VENOUS DUPLEX REASON FOR EXAMINATION: Left lower extremity pain and edema. COMPARISON: None TECHNIQUE: Using real-time freeze-frame technique with a high-frequency transducer, multiple longitudinal and transverse sections were obtained. Simultaneous color flow and spectral Doppler imaging was performed. FINDINGS: There is echogenic, wall adherent, nonocclusive thrombus in the left common femoral vein. The deep femoral vein is compressible and free of intraluminal thrombus. There is echogenic occlusive thrombus in the middle and distal portions of the femoral vein and popliteal vein. The posterior tibial veins and demonstrate flow on color doppler. IMPRESSION: Deep venous thrombus from the popliteal vein to the common femoral vein, occlusive in the femoral vein and popliteal vein. While not definite, echogenicity of the thrombus may suggest subacute to chronic timeline. Correlate clinically with patient symptoms and prior studies. ATED BY: LEOPOLDO SAMUEL MD DICTATED DATE/TIME: 06/08/251727 SIGNED BY: LEOPOLDO SAMUEL MD SIGNED DATE/TIME: 06/08/251727 CC: X-Ray, Labs, Meds, VS Comment EXTERNAL MEDICAL RECORDS REVIEWED: [NONE] INDEPENDENT HISTORIANS: [NONE] SOCIAL DETERMINANTS OF HEALTH: [NONE] LABS ORDERED: CBC, BMP, PT INR REVIEWED AND INTERPRETED RESULTS: WBC 13.4 IMAGING ORDERED: CV VENOUS DOPPLER LOW EXT LT TREATMENTS ORDERED: NORCO 10/325 MG PO, LOVENOX 90 MG SC PROCEDURES PERFORMED: NONE CRITICAL CARE TIME: NONE I HAVE DISCUSSED THE PATIENT WITH THE ATTENDING PHYSICIAN DR. LOVE AND HE AGREES WITH THE PATIENT'S PLAN OF CARE. UPON MY PHYSICAL EXAMINATION, THE PATIENT HAD SWELLING AND TENDERNESS NOTED TO HER LEFT LOWER EXTREMITY CONSISTENT WITH DVT. PATIENT NOTED THAT SHE HAD ALREADY BEEN TO A DIFFERENT FACILITY WHERE SHE TESTED POSITIVE FOR A DVT IN HER LEFT LOWER EXTREMITY. PATIENT'S ULTRASOUND IN THIS ED TODAY REVEALED A COMPLETELY OCCLUSIVE DVT OF HER LEFT LOWER EXTREMITY. DUE TO THE PATIENT'S MEDICAL HISTORY AND ULTRASOUND REVEALING A COMPLETELY OCCLUSIVE DVT, I HAVE DETERMINED THE PATIENT NEEDS TO BE ADMITTED FOR FURTHER TREATMENT AND EVALUATION. Images Reviewed?: Images reviewed and evaluated by me Time of 1ST Reevaluation: 17:46 Reevaluation 1ST: Unchanged Patient Education/Counseling: Diagnosis, Treatment Family Education/Counseling: Diagnosis, Treatment Departure 1 Departure Time of Disposition: 17:46 Impression: Primary Impression: Deep vein thrombosis (DVT) of left lower extremity Qualified Codes: I82.432 - Acute embolism and thrombosis of left popliteal vein Disposition: ADMITTED INPATIENT Condition: Serious Critical Care Note Critical Care Time?: No Stability Stability form required: Yes Unstable for transfer: Requires medication, ED Physician Assesment, Possible rapid decline I personally scribed for SHALONDA RIVAS ([email or web address]) on 06/08/25 at 16:24. Electronically submitted by Juan Mckeon ([email or web address]). I personally scribed for SHALONDA RIVAS ([email or web address]) on 06/08/25 at 17:10. Electronically submitted by Juan Mckeon ([email or web address]). I personally scribed for SHALONDA RIVAS ([email or web address]) on 06/08/25 at 17:37. Electronically submitted by Juan Mckeon ([email or web address]). SHALONDA RIVAS Jun 08, 2025 16:24
[2025-06-08 16:42] LABS: Hematocrit 39.8 % (36.0-46.0); Hemoglobin 13.2 g/dL (12.2-16.2); Mean Corpuscular Hemoglobin 29.8 pg (28.0-32.0); Mean Corpuscular Volume 89.7 fL (80.0-100.0); Nucleated Red Blood Cells % 0.0 %
[2025-06-08 16:47] LABS: Chloride 104 mmol/L (98-107); Potassium 4.0 mmol/L (3.5-5.1); Sodium 140 mmol/L (136-145)
[2025-06-08 16:48] LABS: Anion Gap 10 (5-15); Calcium 9.1 mg/dL (8.7-10.4); Carbon Dioxide 26 mmol/L (20-31)
[2025-06-08 16:53] LABS: BUN/Creatinine Ratio 13.3 (10.0-20.0); Blood Urea Nitrogen 11 mg/dL (9-23); Glucose 108 mg/dL (74-106)
[2025-06-08 17:10] LABS: INR 1.03 (0.9-1.15); Prothrombin Time 10.9 sec (9.3-11.8)
--- NOTE | 2025-06-08 17:30 | DVH ---
LEFT LOWER EXTREMITY VENOUS DUPLEX REASON FOR EXAMINATION: Left lower extremity pain and edema. COMPARISON: None TECHNIQUE: Using real-time freeze-frame technique with a high-frequency transducer, multiple longitu dinal and transverse sections were obtained. Simultaneous color flow and spectral Doppler imaging wa s performed. FINDINGS: There is echogenic, wall adherent, nonocclusive thrombus in the left common femoral vein. The deep femoral vein is compressible and free of intraluminal thrombus. There is echogenic occlusive thrombus in the middle and distal portions of the femoral vein and popliteal vein. The posterior tib ial veins and demonstrate flow on color doppler. IMPRESSION: Deep venous thrombus from the popliteal vein to the common femoral vein, occlusive in the femoral vei n and popliteal vein. While not definite, echogenicity of the thrombus may suggest subacute to chroni c timeline. Correlate clinically with patient symptoms and prior studies.
[2025-06-08] MEDS: ENOXAPARIN SOD 100 MG/1 ML SYRINGE SC ONE (17:41)
[2025-06-08] MEDS: HYDROcodone-ACET 10/325MG TAB PO ONE (17:41)
[2025-06-08 20:00] VITALS: PULSE 73; RESP 16; O2SAT 96
[2025-06-08] MEDS: SODIUM CHLORIDE 0.9% 1,000 ML IV ONE ×2 (20:14→20:30)
[2025-06-08] MEDS ORDERED: DEXTROSE (50%) 50ML SYRG IV PRN (20:30)
--- NOTE | 2025-06-08 21:43 | DVHHPRES ---
History of Present Illness Resident Creating Document: CARMELITA BUITRAGO RESIDENT History of Present Illness Ms. Aguirre is a 55 year old female with prior medical history of COPD, asthma, Prinzmetal angina, hormonal therapy for control of menopause symptoms, and specified palpitations, who presents today with chief complaint of left lower extremity swelling and pain. The patient states she began to feel pain behind her knee approximately 3 weeks ago, but states it resolved during her recent hospitalization at this institution for pneumonia. She refers the pain began again on Wednesday and is described as achy, located behind her knee and radiating up towards her groin, intensity 8/10, associated with redness and swelling, with worsening of pain to the point of inability to bear weight. Patient states she has had minor shortness of breath since recent pneumonia for which she is currently on Prednisone, but denies any worsening. She denies chest pain, pain in right lower extremity, nausea, vomiting, disorientation, recent travel, or prolonged immobilization. Due to persistence symptoms of she saw her PCP who sent her to get a lower extremity ultrasound showing a DVT in her left leg, and subsequently sent the patient to the emergency department. On evaluation in the ED, the patient was hypertensive, other vitals were stable. Twelve lead EKG shows sinus rhythm. Initial labs show leukocytosis and thrombocytosis, CMP and coagulation panel within normal range. left lower extremity venous duplex shows deep veinous thrombosis in the popliteal vein to the common femoral vein, occlusive in the femoral vein and popliteal vein. She was admitted for further workup and management. Prior medical history: COPD, asthma, unspecified palpitations Home medications: metoprolol 25 mg b.i.d., Bupropion 300 mg daily, omeprazole 40 mg p.o. daily, progesterone 200 mg p.o. daily, Testosterone pellet placed in December 2024, Wixela 1 puff daily, albuterol 90 mcg 1 puff as needed, nitroglycerin 0.4 mg as needed Surgical history: Tubal ligation, breast biopsy, appendectomy Family history: - Mother: Blood clots - Paternal Grandmother: Brain cancer, breast cancer, uterine cancer - Maternal Grandmother: Uterine cancer Allergies: Denies Social history: Denies drug and alcohol use, states she smoked 1 pack of cigarettes a day for approximately 20 years with cessation 10 years ago Review of Systems Review of Systems Constitutional: Denies weight loss, fever and chills. HEENT: Denies changes in vision and hearing. Respiratory: Denies shortness of breath and cough Cardiovascular: Denies chest discomfort or palpitations GI: Denies abdominal distention, abdominal pain, diarrhea : Denies dysuria and urinary frequency. Musculoskeletal: Refers swelling, redness, and pain in left lower extremity Skin: Denies rash and pruritus. Neurological: denies dizziness headache vision or hearing problems Allergies: Coded Allergies: No Known Drug Allergy (Verified Allergy, Unknown, 12/01/22) Medications Current Medications Medications Dose Ordered Sig/Jose Route Start Time Stop Time Status Last Admin Dose Admin Diagnostic Test (Pha) 1 strip IQ4HR 06/09/25 00:00 UNV Insulin Human Regular IQ4HR SC 06/09/25 00:00 UNV Dextrose 50 ml UD PRN IV 06/08/25 20:30 UNV Heparin Sodium/ Dextrose 250 ml @ 17.478 mls/ hr [id number] IV 06/08/25 20:30 UNV Aspirin 6,561 mg DAILY PO 06/09/25 10:00 UNV Metoprolol Tartrate 25 mg BID PO 06/08/25 22:00 UNV Bupropion HCl 150 mg BID@07,19 PO 06/09/25 07:00 UNV Patient Own Medication 1 BID PO 06/08/25 22:00 UNV Exam Vital Signs Vital Signs Date Time Temp Pulse Resp B/P (MAP) Pulse Ox O2 Delivery O2 Flow Rate FiO2 06/08/25 20:27 73 16 96 Room Air 06/08/25 20:00 98.8 130/76 (94) 98.8 06/08/25 20:00 0 21 Exam General: The patient alert and oriented in person place and time. Patient following commands HEENT: Normocephalic, atraumatic, normal reactive pupils, EOM intact, pink conjunctiva, pink moist mucous membrane Respiratory/pulmonary: Bilateral chest expansion, no pain on palpation of chest wall, clear lungs bilaterally, vesicular murmurs present in almost all lung pozo, no associated crackles or wheezes. Cardiovascular: Normal RRR, normal S1 and S2, no murmurs Abdomen: Obese, Abdomen nondistended, normal bowel sounds, soft, there is no pain to palpation in any of the abdominal quadrants, no palpable masses. Extremities: Left leg is observed to be swollen compared to right lower extremity, no redness is noted at this time, warm to the touch and with pain on palpation of posterior aspect of the left knee and thigh, pulses are present, exam of right lower extremity without alteration Skin: No rashes or pruritus, there is no sacral edema present at this time. Neurological: Intact cranial nerves with no focal neurologic deficits Labs/Xrays Labs Test 06/08/25 16:33 Range/Units White Blood Count 13.4 H 4.4-10.8 10^3/uL Red Blood Count 4.43 4.0-5.20 10^6/uL Hemoglobin 13.2 12.2-16.2 g/dL Hematocrit 39.8 36.0-46.0 % Mean Corpuscular Volume 89.7 80.0-100.0 fL Mean Corpuscular Hemoglobin 29.8 28.0-32.0 pg Mean Corpuscular Hemoglobin Concent 33.3 32.0-36.0 g/dL Red Cell Distribution Width 13.5 11.8-14.3 % Platelet Count 456 H 140-450 10^3/uL Mean Platelet Volume 7.0 6.9-10.8 fL Neutrophils (%) (Auto) 79.0 37.0-80.0 % Lymphocytes (%) (Auto) 14.1 10.0-50.0 % Monocytes (%) (Auto) 6.0 0.0-12.0 % Eosinophils (%) (Auto) 0.1 0.0-7.0 % Basophils (%) (Auto) 0.8 0.0-2.0 % Neutrophils # (Auto) 10.6 H 1.6-8.6 10 ^3/uL Lymphocytes # (Auto) 1.9 0.4-5.4 10 ^3/uL Monocytes # (Auto) 0.8 0-1.3 10 ^3/uL Eosinophils # (Auto) 0 0-0.8 10 ^3/uL Basophils # (Auto) 0.1 0-0.2 10 ^3/uL Nucleated Red Blood Cells 0.0 % Prothrombin Time 10.9 9.3-11.8 sec Prothrombin Time INR 1.03 0.9-1.15 Sodium Level 140 136-145 mmol/L Potassium Level 4.0 3.5-5.1 mmol/L Chloride Level 104 98-107 mmol/L Carbon Dioxide Level 26 20-31 mmol/L Anion Gap 10 5-15 Blood Urea Nitrogen 11 9-23 mg/dL Creatinine 0.83 0.550-1.02 mg/dL Glomerular Filtration Rate Calc 84 >90 mL/min BUN/Creatinine Ratio 13.3 10.0-20.0 Serum Glucose 108 H 74-106 mg/dL Calcium Level 9.1 8.7-10.4 mg/dL SEPSIS Sepsis Screen Date sepsis recognized/suspect: Jun 08, 2025 Time Sepsis recognized/suspect: 1999 Recent Procedure: No On Antibiotic Therapy: No Respiratory Rate >20: No Heart Rate >90: No Temp<36 C (96.8 F) or >38.3 C: No SBP <90 or MAP <65 mmHG: No New Acute Mental Status Change: No Is the patient on CPAP, BIPAP,: No Physician Orders Urinalysis (06/08/25 16:17) Lt Lower Dvt (06/08/25 16:47) Heplock Iv (06/08/25 ) Sodium Chloride 0.9% (06/08/25 18:00) Hepatic Panel (06/08/25 20:16) Magnesium (06/08/25 20:16) Phosphorus (06/08/25 20:16) Thyroid Stimulating Hormone (06/08/25 20:16) Vitamin D, 25-Hydroxy (06/08/25 20:16) Vitamin B12 (06/08/25 20:16) Drug Screen (06/08/25 20:16) Admit (06/08/25 20:16) Allergies (06/08/25 20:16) Code Status (06/08/25 20:16) Npo (Nothing By Mouth) Diet (06/09/25 Breakfast) Condition: Stable (06/08/25 20:16) Glucose Blood (Accu-Chek Comfort Curve T (06/09/25 00:00) Insulin R (Human) (Insulin R) (06/09/25 00:00) Dextrose 50% Syringe (06/08/25 20:30) Stat Ekg For Chest Pain (06/08/25 20:16) Notify Of Changes From Base (06/08/25 20:16) Emergency Dysrhythmia Protocol (06/08/25 20:16) Rhythm Strips Once Every Shift (06/08/25 20:16) Platelet Monitoring (06/08/25 20:16) Vte Protocol Initiated (06/08/25 20:16) Heparin Per Standardized Proce (06/08/25 20:16) Discontinue All Im Injections (06/08/25 20:16) Heparin Sodium (Porcine) (06/08/25 20:30) Heparin Drip/D5w 100units/Ml (06/08/25 20:30) Aspirin Enteric Coated Tablet (Ecotrin E (06/09/25 10:00) Metoprolol Tartrate Tablet (Lopressor Ta (06/08/25 22:00) Bupropion Tablet (Wellbutrin Tablet) (06/09/25 07:00) Patients Own Medication (06/08/25 22:00) * Cardiology Consult (06/08/25 20:16) NS (06/08/25 20:30) Pantoprazole (Protonix) (06/09/25 10:00) Rn Acute Dialysis (06/08/25 20:16) Vital Signs Date Time Temp Pulse Resp B/P (MAP) Pulse Ox O2 Delivery O2 Flow Rate FiO2 06/08/25 20:27 73 16 96 Room Air 06/08/25 20:00 98.8 73 16 130/76 (94) 96 98.8 06/08/25 20:00 98.8 73 16 130/76 (94) 96 98.8 06/08/25 20:00 73 16 96 Room Air* 0 21 06/08/25 16:10 99.7 87 19 177/90 95 99.7 Laboratory Tests Test 06/08/25 16:33 White Blood Count 13.4 10^3/uL (4.4-10.8) H Medications Medications Dose Ordered Sig/Jose Route Start Time Stop Time Status Last Admin Dose Admin Acetaminophen/ Hydrocodone Bitart 1 tab ONCE ONCE PO 06/08/25 17:15 06/08/25 17:16 DC 06/08/25 17:41 1 TAB Enoxaparin Sodium 90 mg ONCE ONCE SC 06/08/25 17:15 06/08/25 17:16 DC 06/08/25 17:41 90 MG Sodium Chloride 1,000 ml @ 125 mls/hr Q8H ONCE IV 06/08/25 18:00 06/09/25 01:59 06/08/25 20:14 125 MLS/HR Assessment/Plan Assessment/Plan Assessment and Plan: Intractable leg pain secondary to Deep Vein Thrombosis of Left Lower Extremity possibly provoked by hormonal replacement therapy Leukocytosis likely due to above - Left lower extremity venous duplex US: deep venous thrombosis when to med, occlusive in the femoral vein and popliteal vein. While not definite, echogenicity of the thrombus may suggest subacute to chronic timeline. - Enoxaparin 90 mg SC once - Heparin IV drip - Callao 10/325 mg PO once - Interventional Cardiology has been consulted for possible thrombectomy - Consider Vascular surgery consult - Patient is currently NPO pending evaluation Biltateral Pulmonary Emboli - CTA: Multiple subtotally occlusive filling defects within the distal right main and bilateral lobar, segmental and subsegmental branches of the pulmonary artery serving the right upper and bilateral lower lobes, consistent with multiple pulmonary emboli. No definite findings supportive of right heart strain - IV heparin Drip - Echocardiogram for evaluation of right heart strain - Ordered troponin Posterior left lower lobe pulmonary infarct - CTA: Posterior left lower lobe pulmonary infarct in evolution - As above COPD, currently not exacerbated - Continue Wilexa 1 puff BID Asthma, without exacerbation - Continue albuterol PRN GERD - Protonix 40 mg IV daily Prediabetes - Consistent carbohydrate diet once NPO is lifted - Patient refused ACCU checks Unspecified tachyarrhythmia - Patient is not sure what kind of arrhythmia she has, Follows outpatient with Dr. Manley - Continue Metoprolol tartrate 25 mg PO BID - EKG shows sinus rhythm - Telemetry Depression - Continue Bupropion 150 mg PO BID Obesity, BMI 33.5 kg/m2. - I have counseled the patient on healthy lifestyle modifications Diet: NPO DVT prophylaxis: Patient is currently on an heparin drip GI prophylaxis: Protonix 40 mg IV daily Case discussed with Dr. Solis Goals of care discussed with the patient for over 26 minutes. FULL CODE. Plan discussed with: Patient, Other (Nurses) My Orders Orders - CARMELITA BUITRAGO RESIDENT Procedure Category Date Status Time Hepatic Panel LAB 06/08/25 Transmitted 20:16 Magnesium LAB 06/08/25 Transmitted 20:16 Phosphorus LAB 06/08/25 Transmitted 20:16 Thyroid Stimulating LAB 06/08/25 Transmitted Hormone 20:16 Vitamin D, 25-Hydroxy LAB 06/08/25 Transmitted 20:16 Vitamin B12 LAB 06/08/25 Transmitted 20:16 Drug Screen LAB 06/08/25 Transmitted 20:16 Admit ADMIT 06/08/25 Transmitted 20:16 Allergies [facility] 06/08/25 Transmitted 20:16 Code Status CODE 06/08/25 Transmitted 20:16 Npo (Nothing By DIET 06/09/25 Transmitted Mouth) Diet Breakfast Condition: Stable [facility] 06/08/25 Transmitted 20:16 Glucose Blood PHA 06/09/25 Logged (Accu-Chek Comfort 00:00 Insulin R (Human) PHA 06/09/25 Logged (Insulin R) 00:00 Dextrose 50% Syringe [facility] 06/08/25 Logged 20:30 Stat Ekg For Chest [facility] 06/08/25 Transmitted Pain 20:16 Notify Md Of Changes [facility] 06/08/25 Transmitted From Base 20:16 Emergency Dysrhythmia [facility] 06/08/25 Transmitted Protocol 20:16 Rhythm Strips Once [facility] 06/08/25 Transmitted Every Shift 20:16 Platelet Monitoring [facility] 06/08/25 Transmitted 20:16 Vte Protocol Initiated [facility] 06/08/25 Transmitted 20:16 Heparin Per [facility] 06/08/25 Transmitted Standardized Proce 20:16 Discontinue All Im [facility] 06/08/25 Transmitted Injections 20:16 Heparin Sodium [facility] 06/08/25 Logged (Porcine) 20:30 Heparin Drip/D5w PHA 06/08/25 Logged 100units/Ml 20:30 Aspirin Enteric PHA 06/09/25 Logged Coated Tablet 10:00 Metoprolol Tartrate [facility] 06/08/25 Logged Tablet (Lopressor Ta 22:00 Bupropion Tablet [facility] 06/09/25 Transmitted (Wellbutrin Tablet) 07:00 Patients Own [facility] 06/08/25 Transmitted Medication 22:00 * Cardiology Consult CONS 06/08/25 Transmitted 20:16 NS PHA 06/08/25 Transmitted 20:30 Pantoprazole PHA 06/09/25 Transmitted (Protonix) 10:00 Rn Acute Dialysis ORDERS 06/08/25 Transmitted 20:16 Date of Service: Jun 08, 2025 Billing Provider: ARON SOLIS MD Common Visit Codes: [id number] INP/OBS CARE (HIGH) Secondary Visit Codes: [id number] CARE PLAN 30 MINUTES CARMELITA BUITRAGO RESIDENT Jun 08, 2025 21:43 RASHMI GILBERT RESIDENT Jun 09, 2025 08:11
[2025-06-08 22:14] LABS: Alanine Aminotransferase 25 U/L (7-40); Albumin 4.6 g/dL (3.2-4.8); Alkaline Phosphatase 94 U/L (46-116); Magnesium 2.3 mg/dL (1.6-2.6); Total Protein 8.1 g/dL (5.7-8.2)
[2025-06-08 22:16] LABS: Bilirubin, Direct < 0.1 mg/dL (<0.3); Bilirubin, Total 0.2 mg/dL (0.2-1.0)
[2025-06-08] MEDS: KETOROLAC TROMETH 30 MG/ML 1ML VIAL IV ONE (23:17)
[2025-06-08] MEDS: predniSONE 20 MG TAB PO ONE (23:17)
[2025-06-08] MEDS: FLUTICASONE PO SCH (23:24)
[2025-06-08] MEDS: SALMETEROL PO SCH (23:24)
[2025-06-08] MEDS: METOPROLOL TARTRATE 25 MG TAB PO SCH (23:25)
[2025-06-09] VITALS (9 sets, daily range): BP systolic 118–139; BP diastolic 47–75; PULSE 57–78; RESP 16–20; TEMP 97.8–99; O2SAT 93–96
[2025-06-09] MEDS: InsuLIN REG 1unit/0.01ml Soln (100units/ml) SC SCH
[2025-06-09] MEDS: ACCU-CHEK COMFORT CURVE STRIP VI SCH (00:07)
[2025-06-09 00:11] LABS: INR 1.07 (0.9-1.15); Partial Thromboplastin Time 30.2 SEC (24.5-34.5); Prothrombin Time 11.3 sec (9.3-11.8)
--- NOTE | 2025-06-09 04:13 | DVH ---
CTA Chest with intravenous contrast INDICATION: Rule out PE COMPARISON: XY CHEST XRAY 1 VIEW on DOS: 05/30/25, XY CHEST PORTABLE on DOS: 05/28/25 TECHNIQUE: Multidetector spiral CTA of the chest was performed of the chest with intravenous contrast . PULMONARY ANGIOGRAPHY PROTOCOL was utilized using a bolus-tracking technique centered on the main p ulmonary artery. Axial, coronal and sagittal multiplanar and MIP reformats were performed. Radiation Dose : 1. Chest: CTDI volume is 26.41 mGy. Dose-length product is 2044.37 mGy*cm The dose indicators for CT are the volume Computed Tomography (CT) Dose Index (CTDIvol) and the Dose Length Product (DLP), and are measured in units of mGy and mGy-cm, respectively. These indicators are not patient dose, but values generated from the CT scanner acquisition factors. The report includes radiation exposure data for exposures received during this examination. Findings: Pulmonary artery: Multiple subtotally occlusive filling defects within the distal right main and bilateral lobar, segme ntal and subsegmental branches of the pulmonary artery serving the right upper and bilateral lower lo bes, consistent with multiple pulmonary emboli. No definite findings supportive of right heart strain . Lower neck: 5 mm hypoattenuating anterior left thyroid lobe nodule. Otherwise, normal appearing thyro id. Lungs: 6.0 x 4.3 cm wedge shaped pleural-based hypoattenuating soft tissue density focus within the p osterior left lower lobe most consistent with evolving pulmonary infarct. Bibasilar atelectasis. No e vidence of pleural effusion or pneumothorax. Heart/Vascular Structures: Normal heart size. No pericardial effusion. Lymph Nodes: No adenopathy Musculoskeletal: No acute osseous abnormality. Soft tissues: Normal. Upper abdomen: Limited portions of the upper abdomen are unremarkable. Benign-appearing 1.5 cm left h epatic lobe cyst. IMPRESSION: 1. Multiple bilateral pulmonary emboli. 2. Posterior left lower lobe pulmonary infarct in evolution. Critical Result: Pulmonary embolus and left lower lobe pulmonary infarct Findings discussed with CARMELITA BUITRAGO at 06/09/2025 07:10 AM EST, and acknowledged receipt and un derstanding of the findings.
[2025-06-09] MEDS ORDERED: HEPARIN SODIUM (PORCINE) 5000 UNITS/ML 1ML VIAL IV ONE (05:45)
[2025-06-09] MEDS: HEPARIN DRIP/D5W 100UNITS/ML 250 ML IV SCH ×2 (05:58→17:25)
[2025-06-09 08:17] LABS: Hematocrit 38.9 % (36.0-46.0); Hemoglobin 13.2 g/dL (12.2-16.2); Mean Corpuscular Hemoglobin 31.2 pg (28.0-32.0); Mean Corpuscular Volume 91.8 fL (80.0-100.0); Nucleated Red Blood Cells % 0.0 %
[2025-06-09 08:25] LABS: Chloride 103 mmol/L (98-107); Potassium 4.1 mmol/L (3.5-5.1); Sodium 140 mmol/L (136-145)
[2025-06-09 08:26] LABS: Anion Gap 11 (5-15); Carbon Dioxide 26 mmol/L (20-31)
[2025-06-09 08:27] LABS: Calcium 9.2 mg/dL (8.7-10.4)
[2025-06-09 08:32] LABS: BUN/Creatinine Ratio 13.6 (10.0-20.0)
[2025-06-09 08:34] LABS: Blood Urea Nitrogen 9 mg/dL (9-23); Glucose 110 mg/dL (74-106)
[2025-06-09 08:47] LABS: INR 1.08 (0.9-1.15); Partial Thromboplastin Time 43.7 SEC (24.5-34.5); Prothrombin Time 11.4 sec (9.3-11.8)
[2025-06-09] MEDS: KETOROLAC TROMETH 30 MG/ML 1ML VIAL IV PRN (08:54)
[2025-06-09] MEDS: SODIUM CHLORIDE 0.9% 1,000 ML IV SCH (09:14)
[2025-06-09] MEDS: PANTOPRAZOLE 40 MG/10 ML VIAL INJ IV SCH (09:22)
[2025-06-09] MEDS: ASPirin-EC 81 mg tab PO SCH (09:22)
[2025-06-09] MEDS ORDERED: HEPARIN DRIP/D5W 100UNITS/ML 250 ML IV SCH (09:30)
--- NOTE | 2025-06-09 09:49 | ECG ---
[facility] Test Date: 2025-06-09 Test Time: 02:10:43 Pat Name: DELROY MARTINO Department: Respiratoy Room: 0270T B Gender: F Exhibit Carpenter: VIOLETA : 1970 Requested By: CARMELITA BUITRAGO Order Number: [id number] Reading MD: Steve Hernández Measurements Intervals [place] Rate: 64 P: 71 NH: 166 QRS: 43 QRSD: 99 T: 32 QT: 409 QTc: 422 Interpretive Statements Sinus rhythm Electronically Signed On 06-09-2025 17:36:51 PDT by Steve Hernández Please click the below link to view image of tracing.
--- NOTE | 2025-06-09 14:21 | DVHPN2 ---
Subjective DENIES ANY PAIN OR SHORTNESS OF BREATH Changes from previous H/P or p: No Changes Objective Vitals Vital Signs Date Time Temp Pulse Resp B/P (MAP) Pulse Ox O2 Delivery O2 Flow Rate FiO2 06/09/25 13:00 98.3 57 20 118/59 (78) 93 98.3 06/09/25 04:28 Room Air* 0 21 Intake/Output Intake and Output 06/09/25 07:00 Intake Total 258.333 ml Balance 258.333 ml Intake IV Total 258.333 ml General Appearance: Alert, Oriented X3, Cooperative, No acute distress Lungs: Clear to auscultation Cardiovascular: Regular rate, Normal S1, Normal S2 Abdomen: Normal bowel sounds, Soft, No tenderness, No hepatospenomegaly Musculoskeletal: Normal sensory function, Normal motor function Extremities: No clubbing, No edema Neuro: Normal speech, Strength at 5/5 X4 ext, Normal tone, Sensation intact Psych/Mental Status: Mental status NL Medications Current Medications Medications Dose Ordered Sig/Jose Route Start Time Stop Time Status Last Admin Dose Admin Metoprolol Tartrate 25 mg BID PO 06/08/25 22:00 06/09/25 09:21 25 MG Bupropion HCl 150 mg BID@07,19 PO 06/09/25 07:00 Patient Own Medication 1 BID PO 06/08/25 22:00 06/08/25 23:24 1 Pantoprazole Sodium 40 mg DAILY IV 06/09/25 10:00 06/09/25 09:22 40 MG Heparin Sodium/ Dextrose 250 ml @ 19 mls/hr [id number] IV 06/09/25 09:30 Acetaminophen/ Hydrocodone Bitart 1 tab Q4HPRN PRN PO 06/09/25 13:45 Acetaminophen 650 mg Q4HP PRN PO 06/09/25 13:45 Laboratory Results Laboratory Tests 06/09/25 07:41 Chemistry Test 06/08/25 16:33 06/09/25 07:41 Albumin 4.6 g/dL (3.2-4.8) Calcium Level 9.1 mg/dL (8.7-10.4) 9.2 mg/dL (8.7-10.4) Magnesium Level 2.3 mg/dL (1.6-2.6) Phosphorus Level 2.9 mg/dL (2.4-5.1) Total Protein 8.1 g/dL (5.7-8.2) Coagulation Test 06/08/25 16:33 06/08/25 23:46 06/09/25 07:41 Prothrombin Time 10.9 sec (9.3-11.8) 11.3 sec (9.3-11.8) 11.4 sec (9.3-11.8) Prothrombin Time INR 1.03 (0.9-1.15) 1.07 (0.9-1.15) 1.08 (0.9-1.15) Activated Partial Thromboplast Time 30.2 SEC (24.5-34.5) 43.7 SEC (24.5-34.5) H LFT Test 06/08/25 16:33 Alanine Aminotransferase (ALT) 25 U/L (7-40) Alkaline Phosphatase 94 U/L (46-116) Aspartate Amino Transferase (AST) 17 U/L (13-40) Direct Bilirubin < 0.1 mg/dL (<0.3) Total Bilirubin 0.2 mg/dL (0.2-1.0) HgA1c, TSH Test 06/08/25 16:33 Thyroid Stimulating Hormone (TSH) 0.62 uIU/mL (0.55-4.78) Microbiology Microbiology Date/Time Source Procedure Growth Status 06/09/25 04:10 Nose MRSA Screen - Final Complete Labs and/or images reviewed: Labs reviewed by me, Image(s) reviewed by me Assessment/Plan Assessment/Plan PULMONARY EMBOLISM-bilateral pulmonary infarct- normal echo 05/29/25 no rt ventricular strain family h/o dvt pt was on hormones recently by her pcp/also was sick with pneumonia- multiple factors precipitationg thromboembolism Plan discussed with: Patient, Other (family) My Orders Orders - BARTOLOME MCKEON MD Procedure Category Date Status Time Basic Metabolic Panel LAB 06/10/25 Verified 04:00 Regular Diet DIET 06/09/25 Transmitted Dinner Hydrocodone-Acet PHA 06/09/25 In Process 5/325mg Tab ([place] 13:45 Acetaminophen Tablet PHA 06/09/25 In Process (Tylenol Tablet) 13:45 Date of Service: Jun 09, 2025 Billing Provider: BARTOLOME MCKEON MD Common Visit Codes: [id number] INP/OBS CARE(MOD) BARTOLOME MCKEON MD Jun 09, 2025 14:21
[2025-06-09 16:33] LABS: INR 1.07 (0.9-1.15); Prothrombin Time 11.3 sec (9.3-11.8)
[2025-06-09 16:54] LABS: Partial Thromboplastin Time 89.3 SEC (24.5-34.5)
--- NOTE | 2025-06-09 17:00 | DVHSR ---
APPROVED REPORT EXAM: LIMITED Two-dimensional echocardiogram. Blood Pressure: 118/59 mmHg INDICATION Pulmonary Embolism RISK FACTORS Height: 5' 7", Weight: 214 DIMENSIONS LVDd5.1 (3.8-5.7cm)LA (2D)3.7 (1.9-4.0cm)Aortic Root (2.0-3.7cm) LVDs3.3 (2.5-4.0cm)LA (MM) (1.9-4.0cm)Aortic Cusp Exc (1.5-2.0cm) EF (%) 65.0 (55-70%)Rt. Atrium3.5 (1.9-4.0cm)Asc. Aorta cm IVSd1.1 (0.7-1.1cm)RV (D) (1.8-2.4cm) PWd1.0 (0.7-1.1cm) Mitral Valve MitralMitral Stenosis E/A ratio0.02D MVAcm2 Tricuspid Valve TR Velocity1.80m/s [id number] Other Information Quality : Limited per Dr. Torres : Conclusion Sinus rhythm. Left atrial enlargement. Valves are normal. EF of 60% with normal RV function. Right ventricular function is normal. No strain pattern noted. There is no RV hypertrophy. Dopplers unremarkable. TAPSE score is within normal limits. No evidence for RV enlargement and/or v entricular strain. Right ventricular pressure of . Not indicative of pulmonary hypertension. 1 Pericardial fat pad noted. No pericardial effusion masses or vegetations discernible.
--- NOTE | 2025-06-09 17:04 | CONS ---
Pharmacy Clinical Information: HEPARIN PER DVT PROTOCOL: APTT result of 89.3 received from draw on 06/09 @1558. Decrease rate 200 units per hour. New rate is 1700 units per hour (17ml/hr). Orders read back and confirmed with URIEL Hernandez @2130. Next APTT scheduled for 2300. MACARIO SAHNI PHARMACIST Jun 09, 2025 17:04
--- NOTE | 2025-06-09 17:44 | DVHINCON2 ---
Date Seen: Jun 09, 2025 Referring Physician Durga Reason for Consultation Acute PE, DVT History of Present Illness 55-year-old female with PMH for Prinzmetal angina, asthma, hormonal therapy presents to the hospital with left lower extremity pain and swelling. Patient states has been having some issues since approximately last at recent admission 10 days prior for which patient presents to the hospital with some shortness of breath cough and congestion. Patient states at that time she was diagnosed with pneumonia. Patient also noted that she had some left calf cramping and pain. Patient was treated for pneumonia discharged home patient states she was doing fine though started to have significant pain and noticed some minor edema to left lower extremity and feeling hot behind the calf popliteal area. Patient was following up with her PCP and was sent for ultrasound lower extremity which showed DVT in the left lower extremity and was therefore referred to come to the ER. Upon evaluation in the ER ultrasound done showed occlusive DVT in left femoral vein and popliteal vein. Patient also underwent CT pulmonary angiogram showing multiple bilateral pulmonary emboli with posterior left lobe pulmonary infarct in evolution. Past Medical History Prinzmetal angina Hormone replacement therapy, menopause Past Surgical History Denies previous cardiac surgeries Family History: Diabetes mellitus G8 MOTHER G8 FATHER FH: COPD (chronic obstructive pulmonary disease) G8 MOTHER FH: rheumatoid arthritis G8 MOTHER Hypertension G8 FATHER Social History Denies alcohol, tobacco, or illicit drug use Allergies: Coded Allergies: No Known Drug Allergy (Verified Allergy, Unknown, 12/01/22) Home Meds Active Scripts Doxycycline Monohydrate (Doxycycline Monohydrate) 100 Mg Cap, 100 MG PO BID for 5 Days, #10 CAP 0 Refills Prov:KARLO REDDING RESIDENT 05/31/25 Amoxicillin & Pot Clavulanate (AUGMENTIN TABLET) 875 Mg Tb, 875 MG PO BID for 5 Days, #10 TAB 0 Refills Prov:KARLO REDDING 05/31/25 Dextromethorphan-Guaifenesin (Robitussin-Dm) 10 Ml Sr, 10 ML PO Q6HP PRN for 30 Days, #2 SYP Prov:KARLO REDDING 05/31/25 Yeast (S. Boulardii)(S. Cerevi (Probiotic) 250 Mg Cap, 250 MG PO DAILY for 10 Days, #10 CAP Prov:KARLO REDDING RESIDENT 05/31/25 Docusate Sodium (Colace) 100 Mg Cap, 1 CAP PO BIDP PRN, #20 CAP Prov:MELLY CALLE PAC 01/06/25 Belladonna Alkaloids-Phenobarb () Tab, 1 TAB OR Q8HPRN PRN, #15 TAB Prov:MELLY CALLE PAC 01/06/25 Ibuprofen (Ibuprofen) 800 Mg Tab, 1 TAB PO TID PRN, #30 TAB 0 Refills Prov:IMELDA AGUIRRE 02/09/22 Reported Medications Nitroglycerin (Nitrostat) 0.4 Mg Sub, 0.4 MG SL, INJ 05/28/25 Fluticasone-Salmeterol (Wixela Inhub 500-50 Mcg/Dose) 1 Aer Aer, 1 AER IN, AER 05/28/25 Probiotic Product (PROBIOTIC) Tab, 1 OR, TAB 01/12/25 Aspirin (Aspir-81) 81 Mg Tab, 81 TAB PO DAILY, #30 TAB 5 Refills 01/12/25 Silybum Marianum (Milk Thistle) 500 Mg Cap, 500 MG PO, CAP 01/12/25 [place]-3 Fatty Acids (Fish Oil 500 mg) 1 Cap Cap, 1 CAP PO, CAP 01/12/25 Curcuma Longa (Turmeric) Extra (TURMERIC) 500 Mg Cap, 500 MG OR, CAP 01/12/25 Magnesium Oxide (MAGNESIUM OXIDE) 400 Mg Tab, 400 MG OR, TAB 01/12/25 Progesterone Micronized (PROGESTERONE) 200 Mg Cap, 200 MG PO, CAP 01/12/25 Fluticasone-Salmeterol (Wixela Inhub 500-50 Mcg/Dose) 1 Aer Aer, 1 AER IN, AER 01/12/25 Metoprolol Tartrate (Metoprolol Tartrate) 25 Mg Tab, 1 TAB PO BID, #180 TAB 1 Refill 01/12/25 Omeprazole Magnesium (Omeprazole) 20 Mg Tab, 20 MG PO, TAB 01/12/25 Montelukast Sodium (MONTELUKAST SODIUM) 10 Mg Tab, 10 MG OR, TAB 01/12/25 Bupropion Hcl (Wellbutrin Sr) 150 Mg Tab, 150 MG PO, TAB 01/12/25 Albuterol Sulfate (Albuterol Sulfate Hfa) 108 Mcg/Act Aer, 108 MCG IN, AER 01/12/25 Current Medications Current Medications Medications (Trade) Dose Ordered Sig/Jose Route PRN Reason Start Time Stop Time Status Last Admin Diagnostic Test (Pha) (Accu-Chek Comfort Curve T) 1 strip IQ4HR 06/09/25 00:00 06/09/25 05:31 DC 06/09/25 00:07 Insulin Human Regular (InsuLIN R) IQ4HR SC 06/09/25 00:00 06/09/25 05:31 DC Dextrose 50 ml UD PRN IV Blood Sugar LESS THAN 60 06/08/25 20:30 06/09/25 05:31 DC Heparin Sodium/ Dextrose 250 ml @ 17 mls/hr [id number] IV 06/09/25 05:45 06/09/25 09:27 DC 06/09/25 05:58 Aspirin (Ecotrin Enteric Coated Tablet) 81 mg DAILY PO 06/09/25 10:00 06/09/25 12:28 DC 06/09/25 09:22 Metoprolol Tartrate (Lopressor Tablet) 25 mg BID PO 06/08/25 22:00 06/09/25 09:21 Bupropion HCl (Wellbutrin Tablet) 150 mg BID@07,19 PO 06/09/25 07:00 Patient Own Medication 1 BID PO 06/08/25 22:00 06/08/25 23:24 Pantoprazole Sodium (Protonix) 40 mg DAILY IV 06/09/25 10:00 06/09/25 09:22 Ketorolac Tromethamine (Toradol Injection) 15 mg Q6HPRN PRN IV MILD PAIN (1-3 PAIN SCALE) 06/08/25 22:00 06/09/25 12:28 DC 06/09/25 08:54 Sodium Chloride 1,000 ml @ 75 mls/hr [id number] IV 06/09/25 06:30 06/09/25 12:28 DC 06/09/25 09:14 Heparin Sodium/ Dextrose 250 ml @ 19 mls/hr [id number] IV 06/09/25 09:30 06/09/25 16:59 DC Acetaminophen/ Hydrocodone Bitart ([place] 5/325MG Tab) 1 tab Q4HPRN PRN PO MODERATE PAIN (4-6 PAIN SCALE) 06/09/25 13:45 Acetaminophen (Tylenol Tablet) 650 mg Q4HP PRN PO MILD PAIN (1-3 PAIN SCALE) 06/09/25 13:45 Heparin Sodium/ Dextrose 250 ml @ 17 mls/hr [id number] IV 06/09/25 17:00 06/09/25 17:25 Review of Systems Constitutional: No: Fever, Chills, Sweats, Weakness, Malaise, Other Eyes: No: Pain, Vision change, Conjunctivae inflammation, Eyelid inflammation, Other, Redness ENT: No: Ear pain, Ear discharge, Nose pain, Nose discharge, Nose congestion, Mouth pain, Mouth swelling, Throat pain, Throat swelling, Other Respiratory: No: Cough, Dry, Shortness of breath, SOB with exertion, Wheezing, Hemoptysis, Pleuritic Pain, Sputum, Wheezing, Other Cardiovascular: ; No: Chest Pain Palpitations, Orthopnea, Paroxysmal Noc. Dyspnea, Edema LLE, Lt Headedness, Other Gastrointestinal: No: Nausea, Vomiting, Abdominal Pain, Diarrhea, Constipation, Melena, Hematochezia, Other Genitourinary: No Dysuria, No Frequency, No Incontinence, No Hematuria, No Ret ention, No Other Musculoskeletal: neck pain; No: other, shoulder pain, arm pain, back pain, hand pain, leg pain, foot pain Skin: No: Rash, Lesions, Jaundice, Bruising, Other Neurological: Other (Dizziness, headache.); No: Weakness, Numbness, Incoordinat ion, Change in speech, Confusion, Seizures Vital Signs Vital Signs Date Time Temp Pulse Resp B/P (MAP) Pulse Ox O2 Delivery O2 Flow Rate FiO2 06/09/25 17:00 98.8 63 20 124/59 (80) 94 98.8 06/09/25 04:28 Room Air* 0 21 Physical Exam General appearance: Patient is well-developed, well-nourished, in no acute distress. HEENT: Exam shows: Normocephalic, atraumatic, PERRLA, EOMI Neck: Supple, no bruits Chest: Equal chest excursion bilaterally. Breath sounds normal-no rales or wheezes. Heart: Rhythm: Regular rate; no murmur or gallop Abdomen: Exam shows: Soft, nontender, nondistended Musculoskeletal: No clubbing, no cyanosis, trace left lower extremity edema Dermatology: Skin warm, moist. Neurological: Exam shows: Alert and oriented x4, normal speech Available prior records, labs, EKG, rhythm strips reviewed and interpreted Labs/Diagnostic Data Labs Test 06/09/25 15:58 06/09/25 07:41 06/09/25 00:05 06/08/25 16:33 Range/Units Prothrombin Time 11.3 9.3-11.8 sec Prothrombin Time INR 1.07 0.9-1.15 Activated Partial Thromboplast Time 89.3 *H 24.5-34.5 SEC White Blood Count 10.5 4.4-10.8 10^3/uL Red Blood Count 4.24 4.0-5.20 10^6/uL Hemoglobin 13.2 12.2-16.2 g/dL Hematocrit 38.9 36.0-46.0 % Mean Corpuscular Volume 91.8 80.0-100.0 fL Mean Corpuscular Hemoglobin 31.2 28.0-32.0 pg Mean Corpuscular Hemoglobin Concent 34.0 32.0-36.0 g/dL Red Cell Distribution Width 13.3 11.8-14.3 % Platelet Count 407 140-450 10^3/uL Mean Platelet Volume 7.2 6.9-10.8 fL Neutrophils (%) (Auto) 75.9 37.0-80.0 % Lymphocytes (%) (Auto) 17.6 10.0-50.0 % Monocytes (%) (Auto) 5.9 0.0-12.0 % Eosinophils (%) (Auto) 0.2 0.0-7.0 % Basophils (%) (Auto) 0.4 0.0-2.0 % Neutrophils # (Auto) 8.0 1.6-8.6 10 ^3/uL Lymphocytes # (Auto) 1.8 0.4-5.4 10 ^3/uL Monocytes # (Auto) 0.6 0-1.3 10 ^3/uL Eosinophils # (Auto) 0 0-0.8 10 ^3/uL Basophils # (Auto) 0 0-0.2 10 ^3/uL Nucleated Red Blood Cells 0.0 % Sodium Level 140 136-145 mmol/L Potassium Level 4.1 3.5-5.1 mmol/L Chloride Level 103 98-107 mmol/L Carbon Dioxide Level 26 20-31 mmol/L Anion Gap 11 5-15 Blood Urea Nitrogen 9 9-23 mg/dL Creatinine 0.66 0.550-1.02 mg/dL Glomerular Filtration Rate Calc 104 >90 mL/min BUN/Creatinine Ratio 13.6 10.0-20.0 Serum Glucose 110 H 74-106 mg/dL Calcium Level 9.2 8.7-10.4 mg/dL Troponin I High Sensitivity < 3 L </=34 ng/L POC Glucose 106 70-106 mg/dl Phosphorus Level 2.9 2.4-5.1 mg/dL Magnesium Level 2.3 1.6-2.6 mg/dL Total Bilirubin 0.2 0.2-1.0 mg/dL Direct Bilirubin < 0.1 <0.3 mg/dL Aspartate Amino Transferase (AST) 17 13-40 U/L Alanine Aminotransferase (ALT) 25 7-40 U/L Alkaline Phosphatase 94 46-116 U/L Total Protein 8.1 5.7-8.2 g/dL Albumin 4.6 3.2-4.8 g/dL Vitamin B12 Level 870 211-911 pg/mL Vitamin D 25-Hydroxy 52.4 30.0-100 ng/mL Thyroid Stimulating Hormone (TSH) 0.62 0.55-4.78 uIU/mL Microbiology Date/Time Source Procedure Growth Status 06/09/25 04:10 Nose MRSA Screen - Final Complete Assessment * Acute bilateral PE, with left lower lobe pulmonary infarct - continue heparin drip per protocol. Recommend to Eliquis 10 mg p.o. twice daily x7 days followed by 5 mg p.o. twice daily. Follow up echo with normal EF, normal RV function, no signs of right-sided heart strain. Continue medical management. * LLE DVT - continue anticoagulation therapy as above * Hx Prinzmetal Angina, Chest Pressure - troponin negative. EKG. Continue medical management. Patient endorses follows with Dr. Avril thompson on outpatient basis and has had recent stress test within the last couple of months this year. Normal EF on echo. * HX tachyarrhythmia, unspecified - continue home medication metoprolol. Case Discussed with Dr Hernández. Follow up echocardiogram with normal EF, normal RV function, no signs of RV heart strain. Continue anticoagulation therapy on heparin drip recommend transitioning to Eliquis. Breathing stable on room air. 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 There is no further cardiac work-up indicated at this time. Thank you for allowing us to participate in this patient's care. Will sign off. Critical care, time spent: 40 minutes This medical document was created using an electronic medical record system with voice recognition software and computerized dictation system. Although this document has been carefully reviewed, there might still be some phonetic and typographical errors. Occasional wrong-word or ``sound-alike substitutions may have occurred due to the inherent limitations of voice recognition software. These areas are purely typographical due to imperfections of the software programs and do not reflect any compromise in the patient's medical care. Please read the chart carefully and recognize, using context, where these substitutions have occurred. Thank you for allowing me to participate in the management of this patient. The treatment plan was discussed with and agreed upon by patient/family including requesting consultants and ordering of imaging/procedures. Plan discussed with: Patient NYHA Physical activity limitations: Class2(Slight)fatigue,sob (palpitatns, angina w activityv) Date of Service: Jun 09, 2025 Billing Provider: FEDERICO WELCH Cardiology Common Codes: [id number] INP/OBS CARE (High), [id number] CARE 30-74 MIN FEDERICO WELCH Jun 09, 2025 17:44
[2025-06-09] MEDS: HYDROcodone-ACET 5/325MG TAB PO PRN (23:27)
[2025-06-10] VITALS (7 sets, daily range): BP systolic 104–122; BP diastolic 37–63; PULSE 65–75; RESP 18–20; TEMP 98–99.9; O2SAT 93–96
[2025-06-10 00:37] LABS: INR 1.06 (0.9-1.15); Prothrombin Time 11.2 sec (9.3-11.8)
[2025-06-10 00:39] LABS: Partial Thromboplastin Time 97.1 SEC (24.5-34.5)
[2025-06-10] MEDS: IOHEXOL 350 MG/ML 100ML IJ ONE (01:26)
[2025-06-10] MEDS: HEPARIN DRIP/D5W 100UNITS/ML 250 ML IV SCH ×3 (01:51→22:31)
[2025-06-10] MEDS: ACETAMINOPHEN 325 MG TAB PO PRN (06:54)
[2025-06-10 08:43] LABS: Hematocrit 38.0 % (36.0-46.0); Hemoglobin 12.5 g/dL (12.2-16.2); Mean Corpuscular Hemoglobin 31.1 pg (28.0-32.0); Mean Corpuscular Volume 94.6 fL (80.0-100.0); Nucleated Red Blood Cells % 0.1 %
[2025-06-10 08:50] LABS: Chloride 106 mmol/L (98-107); Potassium 4.0 mmol/L (3.5-5.1); Sodium 142 mmol/L (136-145)
[2025-06-10 08:51] LABS: Anion Gap 10 (5-15); Calcium 8.7 mg/dL (8.7-10.4); Carbon Dioxide 26 mmol/L (20-31)
[2025-06-10 08:56] LABS: BUN/Creatinine Ratio 11.9 (10.0-20.0); Glucose 96 mg/dL (74-106)
[2025-06-10 08:57] LABS: INR 1.04 (0.9-1.15); Partial Thromboplastin Time 59.1 SEC (24.5-34.5); Prothrombin Time 11.0 sec (9.3-11.8)
[2025-06-10 09:02] LABS: Blood Urea Nitrogen 7 mg/dL (9-23)
--- NOTE | 2025-06-10 10:36 | ECG ---
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
--- NOTE | 2025-06-10 11:02 | DVHPN2 ---
Consult Progress Note Subjective Patient reports: No new complaints Review of Systems: CVS:Normal (Denies chest pain, palpitations), RESPIRATORY:Normal (Denies dyspnea/shortness of breath) Objective vital signs Vital Sign Date Time Temp Pulse Resp B/P (MAP) Pulse Ox O2 Delivery O2 Flow Rate FiO2 06/10/25 10:00 72 136/69 06/10/25 08:30 99.3 20 94 99.3 06/10/25 07:30 Room Air* 0 21 Total Intake and Output 06/09/25 06/09/25 06/10/25 15:00 23:00 07:00 Intake Total 250 ml Output Total 100 ml Balance -100 ml 250 ml medications Current Medications Medications Dose Ordered Sig/Jose Route Start Time Stop Time Status Last Admin Dose Admin Metoprolol Tartrate 25 mg BID PO 06/08/25 22:00 06/10/25 10:00 25 MG Bupropion HCl 150 mg BID@07,19 PO 06/09/25 07:00 06/10/25 06:04 150 MG Patient Own Medication 1 BID PO 06/08/25 22:00 06/09/25 22:00 1 Pantoprazole Sodium 40 mg DAILY IV 06/09/25 10:00 06/10/25 10:00 40 MG Acetaminophen/ Hydrocodone Bitart 1 tab Q4HPRN PRN PO 06/09/25 13:45 06/09/25 23:27 1 TAB Acetaminophen 650 mg Q4HP PRN PO 06/09/25 13:45 06/10/25 06:54 650 MG Heparin Sodium/ Dextrose 250 ml @ 14 mls/hr [id number] IV 06/10/25 02:00 06/10/25 01:51 14 MLS/HR Examination: LUNGS:Normal, CVS:Abnormal (SVT episode overnight, continue p.r.n. metoprolol. Currently sinus rhythm at 64 beats per minute on tele review.) laboratory and microbiology Laboratory Tests 06/10/25 08:25 Test 06/10/25 08:25 Range/Units Serum Glucose 96 74-106 mg/dL Problem List/Assessment/Plan Problem List/Assessment/Plan Assessment * Acute bilateral PE, with left lower lobe pulmonary infarct - continue heparin drip per protocol. Recommend transitioning to Eliquis 10 mg p.o. twice daily x7 days followed by 5 mg p.o. twice daily. Follow up echo with normal EF, normal RV function, no signs of right-sided heart strain. Continue medical management. * LLE DVT - continue anticoagulation therapy as above * Hx Prinzmetal Angina, Chest Pressure - troponin negative. EKG. Continue medical management. Patient endorses follows with Dr. Avril thompson on outpatient basis and has had recent stress test within the last couple of months this year. Normal EF on echo. * HX tachyarrhythmia, paroxysmal SVT - continue home medication metoprolol. Case Discussed with Dr Hernández. Follow up echocardiogram with normal EF, normal RV function, no signs of RV heart strain. On anticoagulation therapy with heparin drip recommend transitioning to Eliquis. Breathing stable on room air. Recommend outpatient follow up with her lpn per diem. Patient with episode of SVT overnight, nonsustained lasting few sec. continue p.r.n. metoprolol home dose. There is no further cardiac work-up indicated at this time. Thank you for allowing us to participate in this patient's care. Will sign off. Critical care, time spent: 40 minutes This medical document was created using an electronic medical record system with voice recognition software and computerized dictation system. Although this document has been carefully reviewed, there might still be some phonetic and typographical errors. Occasional wrong-word or ``sound-alike substitutions may have occurred due to the inherent limitations of voice recognition software. These areas are purely typographical due to imperfections of the software programs and do not reflect any compromise in the patient's medical care. Please read the chart carefully and recognize, using context, where these substitutions have occurred. Thank you for allowing me to participate in the management of this patient. The treatment plan was discussed with and agreed upon by patient/family including requesting consultants and ordering of imaging/procedures. Plan discussed with: Patient Date of Service: Jun 10, 2025 Billing Provider: FEDERICO WELCH Common Visit Codes: [id number] INP/OBS CARE(HIGH) FEDERICO WELCH Jun 10, 2025 11:02
--- NOTE | 2025-06-10 14:57 | DVHINCON2 ---
Date of service: Jun 09, [address] Calixto Reason for Consultation Pulmonary embolism History of Present Illness History Source: Patient Exam Limitations: No limitations HPI Patient is a 55-year old lady followed by Dr. Louis with a history of former nicotine dependency, COPD/asthma and recent admission for pneumonia who presented with swelling of the left lower extremity. Was seen in the emergency room where ultrasound demonstrated DVT of the LLE and CTA was positive for bilateral pulmonary embolism. Patient was started on IV Heparin drip and admitted for further workup. Pulmonology was consulted to assist in management. She reports family history of PE and factor V Leiden mutation, patient is also undergoing hormone replacement therapy. Home Meds Active Scripts Doxycycline Monohydrate (Doxycycline Monohydrate) 100 Mg Cap, 100 MG PO BID for 5 Days, #10 CAP 0 Refills Prov:KARLO REDDING 05/31/25 Amoxicillin & Pot Clavulanate (AUGMENTIN TABLET) 875 Mg Tb, 875 MG PO BID for 5 Days, #10 TAB 0 Refills Prov:KARLO REDDING 05/31/25 Dextromethorphan-Guaifenesin (Robitussin-Dm) 10 Ml Sr, 10 ML PO Q6HP PRN for 30 Days, #2 SYP Prov:KARLO REDDING 05/31/25 Yeast (S. Boulardii)(S. Cerevi (Probiotic) 250 Mg Cap, 250 MG PO DAILY for 10 Days, #10 CAP Prov:KARLO REDDING 05/31/25 Docusate Sodium (Colace) 100 Mg Cap, 1 CAP PO BIDP PRN, #20 CAP Prov:MELLY CALLE PAC 01/06/25 Belladonna Alkaloids-Phenobarb () Tab, 1 TAB OR Q8HPRN PRN, #15 TAB Prov:MELLY CALLE PAC 01/06/25 Ibuprofen (Ibuprofen) 800 Mg Tab, 1 TAB PO TID PRN, #30 TAB 0 Refills Prov:IMELDA AGUIRRE 02/09/22 Reported Medications Nitroglycerin (Nitrostat) 0.4 Mg Sub, 0.4 MG SL, INJ 05/28/25 Fluticasone-Salmeterol ([place] Inhub 500-50 Mcg/Dose) 1 Aer Aer, 1 AER IN, AER 05/28/25 Probiotic Product (PROBIOTIC) Tab, 1 OR, TAB 01/12/25 Aspirin (Aspir-81) 81 Mg Tab, 81 TAB PO DAILY, #30 TAB 5 Refills 01/12/25 Silybum Marianum (Milk Thistle) 500 Mg Cap, 500 MG PO, CAP 01/12/25 [place]-3 Fatty Acids (Fish Oil 500 mg) 1 Cap Cap, 1 CAP PO, CAP 01/12/25 Curcuma Longa (Turmeric) Extra (TURMERIC) 500 Mg Cap, 500 MG OR, CAP 01/12/25 Magnesium Oxide (MAGNESIUM OXIDE) 400 Mg Tab, 400 MG OR, TAB 01/12/25 Progesterone Micronized (PROGESTERONE) 200 Mg Cap, 200 MG PO, CAP 01/12/25 Fluticasone-Salmeterol ([place] In[place] 500-50 Mcg/Dose) 1 Aer Aer, 1 AER IN, AER 01/12/25 Metoprolol Tartrate (Metoprolol Tartrate) 25 Mg Tab, 1 TAB PO BID, #180 TAB 1 Refill 01/12/25 Omeprazole Magnesium (Omeprazole) 20 Mg Tab, 20 MG PO, TAB 01/12/25 Montelukast Sodium (MONTELUKAST SODIUM) 10 Mg Tab, 10 MG OR, TAB 01/12/25 Bupropion Hcl (Wellbutrin Sr) 150 Mg Tab, 150 MG PO, TAB 01/12/25 Albuterol Sulfate (Albuterol Sulfate Hfa) 108 Mcg/Act Aer, 108 MCG IN, AER 01/12/25 Past Medical History Cardiac: No pertinent Hx Pulmonary: Asthma, COPD Central Nervous System: No pertinent Hx GI: No pertinent Hx Hemotology/Oncology: No pertinent Hx Hepatobiliary: No pertinent Hx Psychiatric: No pertinent Hx Musculoskeletal: No pertinent Hx Rheumotologic: No pertinent Hx Infectious Disease: No peritnent Hx ENT: No pertinent Hx Renal/: No pertinent Hx Endocrine: No pertinent Hx Dermatology: No pertinent Hx Past Surgical History: No pertinent Hx Family History: Other (PE) Patient Family History: Diabetes mellitus G8 MOTHER G8 FATHER FH: COPD (chronic obstructive pulmonary disease) G8 MOTHER FH: rheumatoid arthritis G8 MOTHER Hypertension G8 FATHER Smoker: Quit Alocohol: None Drugs: None Lives with: With family Domestic Violence: Neg Review of Systems Constitutional: No symptom reported Ears, Nose, & Throat: No symptom reported Eyes: No symptom reported Pulmonary/Respiratory: No symptom reported Cardiovascular: No symptom reported Gastrointestinal: No symptom reported Genitourinary: No symptom reported Musculoskeletal: No symptom reported Skin: No symptom reported Psychiatric: No symptom reported Endocrine: No symptom reported Hemotologic/Lymphatic: No symptom reported H&P Exam Vital Signs Vital Signs Date Time Temp Pulse Resp B/P (MAP) Pulse Ox O2 Delivery O2 Flow Rate FiO2 06/10/25 12:45 98.3 65 20 113/46 (68) 95 98.3 06/10/25 07:30 Room Air* 0 21 General Appeara: Well developed, Well nourished, Normal Appearance Head Exam: Normal inspection Neck Exam: Normal inspection, Non-tender, Normal alignment Eye Exam: bilateral eye Normal inspection, bilateral eye PERRL, bilateral eye EOMI Ear Exam: bilateral ear Auricle normal, bilateral ear Canal normal, bilateral ear TM normal Nasal Exam: Normal inspection Mouth: Normal Inspection Pulmonary/Respiratory: Normal inspection, Normal breath sounds, Chest non- tender, Lungs clear Cardiovascular/Chest: Normal inspection, Regular rate, Normal Rhythm Peripheral Pulses: 4+ Radial (R), 4+ Radial (L), 4+ Brachial (R), 4+ Brachial (L) Abdominal Exam: Normal bowel sounds Labs/Xrays Labs Test 06/10/25 08:25 06/09/25 07:41 06/09/25 00:05 06/08/25 16:33 Range/Units White Blood Count 6.7 # 4.4-10.8 10^3/uL Red Blood Count 4.02 4.0-5.20 10^6/uL Hemoglobin 12.5 12.2-16.2 g/dL Hematocrit 38.0 36.0-46.0 % Mean Corpuscular Volume 94.6 80.0-100.0 fL Mean Corpuscular Hemoglobin 31.1 28.0-32.0 pg Mean Corpuscular Hemoglobin Concent 32.8 32.0-36.0 g/dL Red Cell Distribution Width 13.6 11.8-14.3 % Platelet Count 395 140-450 10^3/uL Mean Platelet Volume 6.9 6.9-10.8 fL Neutrophils (%) (Auto) 57.2 37.0-80.0 % Lymphocytes (%) (Auto) 29.5 10.0-50.0 % Monocytes (%) (Auto) 9.4 0.0-12.0 % Eosinophils (%) (Auto) 2.9 0.0-7.0 % Basophils (%) (Auto) 1.0 0.0-2.0 % Neutrophils # (Auto) 3.8 1.6-8.6 10 ^3/uL Lymphocytes # (Auto) 2.0 0.4-5.4 10 ^3/uL Monocytes # (Auto) 0.6 0-1.3 10 ^3/uL Eosinophils # (Auto) 0.2 0-0.8 10 ^3/uL Basophils # (Auto) 0.1 0-0.2 10 ^3/uL Nucleated Red Blood Cells 0.1 % Prothrombin Time 11.0 9.3-11.8 sec Prothrombin Time INR 1.04 0.9-1.15 Activated Partial Thromboplast Time 59.1 H 24.5-34.5 SEC Sodium Level 142 136-145 mmol/L Potassium Level 4.0 3.5-5.1 mmol/L Chloride Level 106 98-107 mmol/L Carbon Dioxide Level 26 20-31 mmol/L Anion Gap 10 5-15 Blood Urea Nitrogen 7 L 9-23 mg/dL Creatinine 0.59 0.550-1.02 mg/dL Glomerular Filtration Rate Calc 107 >90 mL/min BUN/Creatinine Ratio 11.9 10.0-20.0 Serum Glucose 96 74-106 mg/dL Calcium Level 8.7 8.7-10.4 mg/dL Troponin I High Sensitivity < 3 L </=34 ng/L POC Glucose 106 70-106 mg/dl Phosphorus Level 2.9 2.4-5.1 mg/dL Magnesium Level 2.3 1.6-2.6 mg/dL Total Bilirubin 0.2 0.2-1.0 mg/dL Direct Bilirubin < 0.1 <0.3 mg/dL Aspartate Amino Transferase (AST) 17 13-40 U/L Alanine Aminotransferase (ALT) 25 7-40 U/L Alkaline Phosphatase 94 46-116 U/L Total Protein 8.1 5.7-8.2 g/dL Albumin 4.6 3.2-4.8 g/dL Vitamin B12 Level 870 211-911 pg/mL Vitamin D 25-Hydroxy 52.4 30.0-100 ng/mL Thyroid Stimulating Hormone (TSH) 0.62 0.55-4.78 uIU/mL Microbiology Date/Time Source Procedure Growth Status 06/09/25 04:10 Nose MRSA Screen - Final Complete Assessment/Plan Plan Impression Acute pulmonary embolism Acute deep vein thrombosis COPD/asthma Former smoker Patient seen and examined Events Low oxygen requirements On 2 liters nasal cannula Vital signs stable Labs and imaging reviewed Management Supplemental oxygen Titrate to maintain sats 90% or above Incentive spirometry Bronchodilators as needed Monitor renal function Monitor electrolytes Supplement as needed Echo report pending F/u cardiology Continue anticoagulation therapy After 24-48 hours, okay to transition to an oral anticoagulant Given strong family history and history of HRT, patient may require prolonged anticoagulant course Obtain factor 5 leiden mutation DVT prophylaxis Plan discussed with: Patient FEDERICA SAUCEDO MD Jun 10, 2025 14:57
--- NOTE | 2025-06-10 14:58 | DVHPN2 ---
Progress Note - Dictate Date Seen: Jun 10, 2025 Medical Necessity Reason Pt with a Central, PICC or Fol: No vital signs Vital Sign Date Time Temp Pulse Resp B/P (MAP) Pulse Ox O2 Delivery O2 Flow Rate FiO2 06/10/25 12:45 98.3 65 20 113/46 (68) 95 98.3 06/10/25 07:30 Room Air* 0 21 Total Intake and Output 06/09/25 06/09/25 06/10/25 15:00 23:00 07:00 Intake Total 250 ml Output Total 100 ml Balance -100 ml 250 ml medications Current Medications Medications Dose Ordered Sig/Jose Route Start Time Stop Time Status Last Admin Dose Admin Metoprolol Tartrate 25 mg BID PO 06/08/25 22:00 06/10/25 10:00 25 MG Bupropion HCl 150 mg BID@ PO 06/09/25 07:00 06/10/25 06:04 150 MG Patient Own Medication 1 BID PO 06/08/25 22:00 06/10/25 10:00 1 Pantoprazole Sodium 40 mg DAILY IV 06/09/25 10:00 06/10/25 10:00 40 MG Acetaminophen/ Hydrocodone Bitart 1 tab Q4HPRN PRN PO 06/09/25 13:45 06/09/25 23:27 1 TAB Acetaminophen 650 mg Q4HP PRN PO 06/09/25 13:45 06/10/25 13:51 650 MG Heparin Sodium/ Dextrose 250 ml @ 14 mls/hr [id number] IV 06/10/25 02:00 06/10/25 11:18 14 MLS/HR laboratory and microbiology Laboratory Tests 06/10/25 08:25 Test 06/10/25 08:25 Range/Units Serum Glucose 96 74-106 mg/dL Assessment/Plan Impression Acute pulmonary embolism Acute deep vein thrombosis COPD/asthma Former smoker Patient seen and examined Events Low oxygen requirements On room air No acute events Labs and imaging reviewed Management Supplemental oxygen as needed Titrate to maintain sats 90% or above Incentive spirometry Bronchodilators as needed Monitor renal function Monitor electrolytes Supplement as needed Echo report reviewed F/u cardiology Continue anticoagulation therapy After 24-48 hours, okay to transition to an oral anticoagulant Given strong family history and history of HRT, patient may require prolonged anticoagulant course Obtain factor 5 leiden mutation DVT prophylaxis Plan discussed with: Patient FEDERICA SAUCEDO MD Jun 10, 2025 14:58
[2025-06-10 15:04] LABS: INR 1.03 (0.9-1.15); Partial Thromboplastin Time 60.3 SEC (24.5-34.5); Prothrombin Time 10.9 sec (9.3-11.8)
--- NOTE | 2025-06-10 16:04 | DVHPN2 ---
Subjective DENIES ANY PAIN OR SHORTNESS OF BREATH Changes from previous H/P or p: No Changes Objective Vitals Vital Signs Date Time Temp Pulse Resp B/P (MAP) Pulse Ox O2 Delivery O2 Flow Rate FiO2 06/10/25 12:45 98.3 65 20 113/46 (68) 95 98.3 06/10/25 07:30 Room Air* 0 21 Intake/Output Intake and Output 06/10/25 07:00 Intake Total 250 ml Output Total 100 ml Balance 150 ml Intake Oral 250 ml Output Urine Total 100 ml # Voids 5 General Appearance: Alert, Oriented X3, Cooperative, No acute distress Lungs: Clear to auscultation Cardiovascular: Regular rate, Normal S1, Normal S2 Abdomen: Normal bowel sounds, Soft, No tenderness, No hepatospenomegaly Musculoskeletal: Normal sensory function, Normal motor function Extremities: No clubbing, No edema Neuro: Normal speech, Strength at 5/5 X4 ext, Normal tone, Sensation intact Psych/Mental Status: Mental status NL Medications Current Medications Medications Dose Ordered Sig/Jose Route Start Time Stop Time Status Last Admin Dose Admin Metoprolol Tartrate 25 mg BID PO 06/08/25 22:00 06/10/25 10:00 25 MG Bupropion HCl 150 mg BID@, PO 06/09/25 07:00 06/10/25 06:04 150 MG Patient Own Medication 1 BID PO 06/08/25 22:00 06/10/25 10:00 1 Pantoprazole Sodium 40 mg DAILY IV 06/09/25 10:00 06/10/25 10:00 40 MG Acetaminophen/ Hydrocodone Bitart 1 tab Q4HPRN PRN PO 06/09/25 13:45 06/10/25 15:47 1 TAB Acetaminophen 650 mg Q4HP PRN PO 06/09/25 13:45 06/10/25 13:51 650 MG Heparin Sodium/ Dextrose 250 ml @ 14 mls/hr [id number] IV 06/10/25 02:00 06/10/25 11:18 14 MLS/HR Laboratory Results Laboratory Tests 06/10/25 08:25 Chemistry Test 06/10/25 08:25 Calcium Level 8.7 mg/dL (8.7-10.4) Coagulation Test 06/09/25 23:14 06/10/25 08:25 06/10/25 14:42 06/10/25 15:51 Prothrombin Time 11.2 sec (9.3-11.8) 11.0 sec (9.3-11.8) 10.9 sec (9.3-11.8) Prothrombin Time INR 1.06 (0.9-1.15) 1.04 (0.9-1.15) 1.03 (0.9-1.15) Activated Partial Thromboplast Time 97.1 SEC (24.5-34.5) *H 59.1 SEC (24.5-34.5) H 60.3 SEC (24.5-34.5) H Factor V Leiden Mutation Pending Microbiology Microbiology Date/Time Source Procedure Growth Status 06/09/25 04:10 Nose MRSA Screen - Final Complete Labs and/or images reviewed: Labs reviewed by me, Image(s) reviewed by me Assessment/Plan Assessment/Plan PULMONARY EMBOLISM-bilateral pulmonary infarct- normal echo 05/29/25 //repeat echo also normalno rt ventricular strain///per pulmonary heparin untill am then start eliquis family h/o dvt pt was on hormones recently by her pcp/also was sick with pneumonia- multiple factors precipitationg thromboembolism Plan discussed with: Patient, Other Date of Service: Jun 10, 2025 Billing Provider: BARTOLOME MCKEON MD Common Visit Codes: [id number] INP/OBS CARE(MOD) BARTOLMOE MCKEON MD Jun 10, 2025 16:04
[2025-06-10 21:54] LABS: INR 1.03 (0.9-1.15); Partial Thromboplastin Time 47.4 SEC (24.5-34.5); Prothrombin Time 10.9 sec (9.3-11.8)
[2025-06-11 01:05] VITALS: BP 115/54; PULSE 86; RESP 18; TEMP 98.3; O2SAT 92
[2025-06-11 01:33] LABS: Opiate Scree,Urine Neg (NEGATIVE); Urine Amorphous Crystal FEW /hpf (None Seen); Urine Protein, UAD Negative (Negative)
[2025-06-11 01:38] LABS: Amphetamine Screen, Urine Neg (NEGATIVE); Barbiturate Scree,Urine Neg (NEGATIVE); Benzodiazephine Screen, Urine Neg (NEGATIVE); Cocaine Screen, Urine Neg (NEGATIVE); Phencyclidine Screen, Urine Neg (NEGATIVE)
[2025-06-11 01:39] LABS: Cannabinoid Screen, Urine Neg (NEGATIVE)
[2025-06-11] MEDS ORDERED: ONDANSETRON HCL 4 MG/2 ML VIAL IV ONE (01:45)
[2025-06-11 04:22] LABS: Hematocrit 38.2 % (36.0-46.0); Hemoglobin 12.5 g/dL (12.2-16.2); Mean Corpuscular Hemoglobin 30.2 pg (28.0-32.0); Mean Corpuscular Volume 92.4 fL (80.0-100.0); Nucleated Red Blood Cells % 0.3 %
[2025-06-11 04:35] LABS: INR 1.07 (0.9-1.15); Partial Thromboplastin Time 49.8 SEC (24.5-34.5); Prothrombin Time 11.3 sec (9.3-11.8)
[2025-06-11 04:46] VITALS: BP 110/59; PULSE 66; RESP 18; TEMP 98.6; O2SAT 94
--- NOTE | 2025-06-11 07:56 | ECG ---
[facility] Test Date: 2025-06-11 Test Time: 00:51:20 Pat Name: DELROY MARTINO Department: Room: 0201T A Gender: F [employer] Tender: SHAYLEE : 1970 Requested By: DANK GUAMAN Order Number: [id number] Reading MD: Steve Hernández Measurements Intervals [place] Rate: 67 P: 43 NC: 139 QRS: 42 QRSD: 99 T: 23 QT: 392 QTc: 414 Interpretive Statements Sinus rhythm Borderline T abnormalities, anterior leads Electronically Signed On 06-18-2025 15:21:56 PDT by Steve Hernández Please click the below link to view image of tracing.
[2025-06-11 08:00] VITALS: PULSE 75
[2025-06-11 08:36] VITALS: BP 118/64; PULSE 72; RESP 18; TEMP 97.8; O2SAT 98
[2025-06-11] MEDS: APIXABAN 5 MG TAB PO SCH (09:52)
[2025-06-11 13:00] VITALS: BP_SYST 118; BP_SYST 121; BP_DIAS 64; BP_DIAS 72; PULSE 71; PULSE 72; RESP 16; RESP 18; TEMP 97.8; TEMP 98; O2SAT 96; O2SAT 98
--- NOTE | 2025-06-11 13:30 | DVHPN2 ---
Progress Note - Dictate Date Seen: Jun 11, 2025 Medical Necessity Reason Pt with a Central, PICC or Fol: No vital signs Vital Sign Date Time Temp Pulse Resp B/P (MAP) Pulse Ox O2 Delivery O2 Flow Rate FiO2 06/11/25 10:21 72 118/64 06/11/25 08:36 97.8 18 98 97.8 06/11/25 08:00 Room Air* 0 21 Total Intake and Output 06/10/25 06/10/25 06/11/25 15:00 23:00 07:00 Intake Total 950 ml 1045 ml Balance 950 ml 1045 ml medications Current Medications Medications Dose Ordered Sig/Jose Route Start Time Stop Time Status Last Admin Dose Admin Metoprolol Tartrate 25 mg BID PO 06/08/25 22:00 06/11/25 09:51 25 MG Bupropion HCl 150 mg BID@ PO 06/09/25 07:00 06/11/25 06:22 150 MG Patient Own Medication 1 BID PO 06/08/25 22:00 06/11/25 09:52 1 Pantoprazole Sodium 40 mg DAILY IV 06/09/25 10:00 06/11/25 09:51 40 MG Acetaminophen/ Hydrocodone Bitart 1 tab Q4HPRN PRN PO 06/09/25 13:45 06/10/25 15:47 1 TAB Acetaminophen 650 mg Q4HP PRN PO 06/09/25 13:45 06/11/25 06:29 650 MG Apixaban 10 mg BID@ PO 06/11/25 08:00 06/17/25 20:01 06/11/25 09:52 10 MG Apixaban 5 mg BID@ PO 06/18/25 08:00 laboratory and microbiology Laboratory Tests 06/11/25 03:52 06/10/25 08:25 Test 06/10/25 08:25 Range/Units Serum Glucose 96 74-106 mg/dL Assessment/Plan Impression Acute pulmonary embolism Acute deep vein thrombosis COPD/asthma Former smoker Patient seen and examined Events Low oxygen requirements On room air No distress Labs and imaging reviewed Management Supplemental oxygen as needed Titrate to maintain sats 90% or above Incentive spirometry Bronchodilators as needed Monitor renal function Monitor electrolytes Supplement as needed Echo report reviewed F/u cardiology Continue anticoagulation therapy After 24-48 hours, okay to transition to an oral anticoagulant Given strong family history and history of HRT, patient may require prolonged anticoagulant course Okay to discharge from pulmonary standpoint DVT prophylaxis Plan discussed with: Patient FEDERICA SAUCEDO MD Jun 11, 2025 13:30
[2025-06-11] MEDS ORDERED: APIX5TAB PO (15:12)
--- NOTE | 2025-06-11 15:12 | DVHDS2 ---
Discharge Summary Date of Admission Jun 08, 2025 at 20:16 Date of Discharge: Jun 11, 2025 Labs/Diagnostic Data: Laboratory Results Test 06/11/25 03:52 06/11/25 00:55 06/10/25 15:51 06/10/25 08:25 White Blood Count 7.8 10^3/uL (4.4-10.8) Red Blood Count 4.13 10^6/uL (4.0-5.20) Hemoglobin 12.5 g/dL (12.2-16.2) Hematocrit 38.2 % (36.0-46.0) Mean Corpuscular Volume 92.4 fL (80.0-100.0) Mean Corpuscular Hemoglobin 30.2 pg (28.0-32.0) Mean Corpuscular Hemoglobin Concent 32.7 g/dL (32.0-36.0) Red Cell Distribution Width 13.8 % (11.8-14.3) Platelet Count 351 10^3/uL (140-450) Mean Platelet Volume 7.2 fL (6.9-10.8) Neutrophils (%) (Auto) 54.6 % (37.0-80.0) Lymphocytes (%) (Auto) 34.0 % (10.0-50.0) Monocytes (%) (Auto) 7.9 % (0.0-12.0) Eosinophils (%) (Auto) 2.7 % (0.0-7.0) Basophils (%) (Auto) 0.8 % (0.0-2.0) Neutrophils # (Auto) 4.3 10 ^3/uL (1.6-8.6) Lymphocytes # (Auto) 2.7 10 ^3/uL (0.4-5.4) Monocytes # (Auto) 0.6 10 ^3/uL (0-1.3) Eosinophils # (Auto) 0.2 10 ^3/uL (0-0.8) Basophils # (Auto) 0.1 10 ^3/uL (0-0.2) Nucleated Red Blood Cells 0.3 % Prothrombin Time 11.3 sec (9.3-11.8) Prothrombin Time INR 1.07 (0.9-1.15) Activated Partial Thromboplast Time 49.8 SEC (24.5-34.5) Urine Color Light-yellow (Yellow) Urine Clarity Turbid (Clear) Urine pH 6.5 (5.0-9.0) Urine Specific [place] 1.015 (1.001-1.035) Urine Protein Negative (Negative) Urine Ketones Negative (Negative) Urine Blood Negative /uL (Negative) Urine Nitrite Negative (Negative) Urine Bilirubin Negative (Negative) Urine Urobilinogen Normal mg/dL (Negative) Urine Leukocyte Esterase Negative /uL (Negative) Urine RBC None seen /hpf (0 - 4) Urine Microscopic WBC 2 /HPF (0-5) Urine Squamous Epithelial Cells Few /hpf (<5) Urine Amorphous Crystals Few /hpf (None Seen) Urine Bacteria Many /hpf (None Seen) Urine Glucose Normal mg/dL (Normal) Urine Opiates Screen Neg (NEGATIVE) Urine Fentanyl Screen Neg (NEGATIVE) Urine Barbiturates Screen Neg (NEGATIVE) Urine Phencyclidine Screen Neg (NEGATIVE) Urine Amphetamines Screen Neg (NEGATIVE) Urine Benzodiazepines Screen Neg (NEGATIVE) Urine Cocaine Screen Neg (NEGATIVE) Urine Cannabinoids Screen Neg (NEGATIVE) Sodium Level 142 mmol/L (136-145) Potassium Level 4.0 mmol/L (3.5-5.1) Chloride Level 106 mmol/L (98-107) Carbon Dioxide Level 26 mmol/L (20-31) Anion Gap 10 (5-15) Blood Urea Nitrogen 7 mg/dL (9-23) Creatinine 0.59 mg/dL (0.550-1.02) Glomerular Filtration Rate Calc 107 mL/min (>90) BUN/Creatinine Ratio 11.9 (10.0-20.0) Serum Glucose 96 mg/dL (74-106) Calcium Level 8.7 mg/dL (8.7-10.4) Test 06/09/25 07:41 06/09/25 00:05 06/08/25 16:33 Troponin I High Sensitivity < 3 ng/L (</=34) POC Glucose 106 mg/dl (70-106) Phosphorus Level 2.9 mg/dL (2.4-5.1) Magnesium Level 2.3 mg/dL (1.6-2.6) Total Bilirubin 0.2 mg/dL (0.2-1.0) Direct Bilirubin < 0.1 mg/dL (<0.3) Aspartate Amino Transferase (AST) 17 U/L (13-40) Alanine Aminotransferase (ALT) 25 U/L (7-40) Alkaline Phosphatase 94 U/L (46-116) Total Protein 8.1 g/dL (5.7-8.2) Albumin 4.6 g/dL (3.2-4.8) Vitamin B12 Level 870 pg/mL (211-911) Vitamin D 25-Hydroxy 52.4 ng/mL (30.0-100) Thyroid Stimulating Hormone (TSH) 0.62 uIU/mL (0.55-4.78) Other Laboratory Tests 06/11/25 03:52 06/10/25 08:25 Brief Hx & Hospital Course: 55 year old female with prior medical history of COPD, asthma, Prinzmetal angina, hormonal therapy for control of menopause symptoms, and specified palpitations, who presents today with chief complaint of left lower extremity swelling and pain. The patient states she began to feel pain behind her knee approximately 3 weeks ago, but states it resolved during her recent hospitalization at this institution for pneumonia. She refers the pain began again on Wednesday and is described as achy, located behind her knee and radiating up towards her groin, intensity 04/01, associated with redness and swelling, with worsening of pain to the point of inability to bear weight. Patient states she has had minor shortness of breath since recent pneumonia for which she is currently on Prednisone, but denies any worsening. She denies chest pain, pain in right lower extremity, nausea, vomiting, disorientation, recent travel, or prolonged immobilization. Due to persistence symptoms of she saw her PCP who sent her to get a lower extremity ultrasound showing a DVT in her left leg, and subsequently sent the patient to the emergency department. On evaluation in the ED, the patient was hypertensive, other vitals were stable. Twelve lead EKG shows sinus rhythm. Initial labs show leukocytosis and thrombocytosis, CMP and coagulation panel within normal range. left lower extremity venous duplex shows deep veinous thrombosis in the popliteal vein to the common femoral vein, occlusive in the femoral vein and popliteal vein. She was admitted for further workup and management. Patient is started on anticoagulation, pulmonology consulted. Pulmonology wants 24-48 hours of IV therapy then transition to DOAC,. Pulmonology concern for family history and history of HRT that patient may require prolonged course of anticoagulant. On 06/11 patient has received more than 40 an hour of IV anticoagulation. Patient is stable for discharge. Patient has recent history of PACs PVCs and SVT and we will need Cardiology follow up. Patient will need pulmonology follow-up. Patient's PCP can consider workup of hypercoagulable disorders and/or refer to hematology. Patient is to continue Eliquis 10 mg twice daily. for 7 days, thereafter continue 5 mg twice daily for 3 months and ongoing use defer to pulmonology eval outpatient. Vital signs stable, safe for discharge as per plan below dx: Bilateral pulmonary embolus , with pulmonary infarct DVT left lower extremity Intractable leg pain secondary to Deep Vein Thrombosis of Left Lower Extremity possibly provoked by hormonal replacement therapy Leukocytosis likely due to above Posterior left lower lobe pulmonary infarct COPD, currently not exacerbated Asthma, without exacerbation GERD Prediabetes Unspecified tachyarrhythmia Depression Obesity, BMI 33.5 kg/m2. plan: -PACs PVCs and SVT and we will need Cardiology follow up. -Patient will need pulmonology follow-up. - PCP consider workup of hypercoagulable disorders and/or refer to hematology. -Patient is to continue Eliquis 10 mg twice daily. for 7 days, thereafter continue 5 mg twice daily for 3 months and ongoing use defer to pulmonology -Continue other home medications not mentioned above Condition at Discharge: Fair Final Diagnosis/Problems List Bilateral pulmonary embolus , with pulmonary infarct DVT left lower extremity Intractable leg pain secondary to Deep Vein Thrombosis of Left Lower Extremity possibly provoked by hormonal replacement therapy Leukocytosis likely due to above Posterior left lower lobe pulmonary infarct COPD, currently not exacerbated Asthma, without exacerbation GERD Prediabetes Unspecified tachyarrhythmia Depression Obesity, BMI 33.5 kg/m2. Discharge Disposition: Home Discharge Instruct/Medications Scheduled Amoxicillin & Pot Clavulanate (Augmentin Tablet), 875 MG PO BID Aspirin (Aspir-81), 81 TAB PO DAILY, (Reported) Doxycycline Monohydrate (Doxycycline Monohydrate), 100 MG PO BID Metoprolol Tartrate (Metoprolol Tartrate), 1 TAB PO BID, (Reported) Yeast (S. Boulardii)(S. Cerevi (Probiotic), 250 MG PO DAILY Scheduled PRN Belladonna Alkaloids-Phenobarb (), 1 TAB OR Q8HPRN PRN Dextromethorphan-Guaifenesin (Robitussin-Dm), 10 ML PO Q6HP PRN Docusate Sodium (Colace), 1 CAP PO BIDP PRN Ibuprofen (Ibuprofen), 1 TAB PO TID PRN Miscellaneous Medications Albuterol Sulfate (Albuterol Sulfate Hfa), 108 MCG IN, (Reported) Bupropion Hcl (Wellbutrin Sr), 150 MG PO, (Reported) Curcuma Longa (Turmeric) Extra (Turmeric), 500 MG OR, (Reported) Fluticasone-Salmeterol (Wixela Inhub 500-50 Mcg/Dose), 1 AER IN, (Reported) Fluticasone-Salmeterol (Wixela Inhub 500-50 Mcg/Dose), 1 AER IN, (Reported) Magnesium Oxide (Magnesium Oxide), 400 MG OR, (Reported) Montelukast Sodium (Montelukast Sodium), 10 MG OR, (Reported) Nitroglycerin (Nitrostat), 0.4 MG SL, (Reported) Brandon-3 Fatty Acids (Fish Oil 500 mg), 1 CAP PO, (Reported) Omeprazole Magnesium (Omeprazole), 20 MG PO, (Reported) Probiotic Product (Probiotic), 1 OR, (Reported) Progesterone Micronized (Progesterone), 200 MG PO, (Reported) Silybum Marianum (Milk Thistle), 500 MG PO, (Reported) Discharge Statement: "Patient was advised to return to the ER or call 911 if any headaches, dizziness, shortness of breath, chest pain, abdominal pain, bleeding, fevers, or worsening of medical condition. Patient was counseled about treatment plan, medications, possible side effects, patientverbalized understanding. All questions were answered to the best of my ability. This discharge took greater then 30 minutes in planning, reviewing documentation, counseling the patient, and discussing with other team members." ASSESSMENT ASSESSMENT Assessment Date of Service: Jun 11, 2025 Billing Provider: JAIRO CROW MD Common Visit Codes: 67506-OXY/OBS DISCH DAY >30min JAIRO CROW MD Jun 11, 2025 15:12
[2025-06-11 15:52] VITALS: BP 118/64; PULSE 72; TEMP 36.7
[2025-06-18] MEDS ORDERED: APIXABAN 5 MG TAB PO SCH (08:00)
== END 2025-06-11 16:30 | disposition home or self-care (01) | DRG 299 ==
LOC: EEVIPCON 16:09 → ER 16:09 → OVERFLOW 20:16 → TELE-WESTW 06-09 03:50 → TELE-CENTR 06-09 22:03
PROVIDERS: ADMIT Student in an Organized Health Care Education/Training Program; ATTEND Student in an Organized Health Care Education/Training Program
DX: I82.412 Acute embolism and thrombosis of left femoral vein (principal); I26.99 Other pulmonary embolism without acute cor pulmonale; D68.51 Activated protein C resistance; I47.10 Supraventricular tachycardia, unspecified; I82.432 Acute embolism and thrombosis of left popliteal vein; D72.829 Elevated white blood cell count, unspecified; F32.A Depression, unspecified; J44.9 Chronic obstructive pulmonary disease, unspecified; E66.9 Obesity, unspecified; K21.9 Gastro-esophageal reflux disease without esophagitis; R73.03 Prediabetes; Z68.33 Body mass index [BMI] 33.0-33.9, adult; Z79.01 Long term (current) use of anticoagulants; Z79.899 Other long term (current) drug therapy; Z82.49 Family history of ischemic heart disease and other diseases of the circulatory system; Z82.5 Family history of asthma and other chronic lower respiratory diseases; Z83.2 Family history of diseases of the blood and blood-forming organs and certain disorders involving the immune mechanism; Z83.3 Family history of diabetes mellitus; Z87.01 Personal history of pneumonia (recurrent); Z87.891 Personal history of nicotine dependence
CPT/HCPCS: 36415; 71275; 80048; 80076; 80307; 81001; 81241; 82306; 82607; 82962; 83735; 84100; 84443; 84484; 85025; 85610; 85730; 87081; 93005; 93306; 93971; 96372; G0378; J1885; J2470